=== PATIENT | female | born 1935 | race Caucasian/White ===

== ENCOUNTER → 2016-11-06 | Outpatient (CLI) | payer MEDICARE, BC ==
--- NOTE | 2016-11-06 15:31 | KCIC ---
Examination: Two views of the chest. HISTORY History of bronchitis, cough, chest tightness for 3 days. COMPARISON 08/06/2016. Findings: Left-sided cardiac pacer /AICD again identified. Median sternotomy wires are noted. The cardiomediastinal silhouette grossly appears unchanged. There is no acute infiltrate or visualized pneumothorax identified. Lumbar levoscoliosis. IMPRESSION No acute cardiopulmonary findings. Electronically signed by: Sanchez Estes (Nov 06, 2016 15:29:31)
== END | disposition home or self-care (01) ==
LOC: KCIC 14:39
PROVIDERS: ATTEND Nurse Practitioner Family
DX: J40 Bronchitis, not specified as acute or chronic (principal); R05 Cough; R07.89 Other chest pain
CPT/HCPCS: 71020

== ENCOUNTER → 2017-03-18 | Outpatient (CLI) | payer MEDICARE, BC ==
--- NOTE | 2017-03-18 14:35 | KCIC ---
CHEST PA LATERAL, RIBS RIGHT History: Fall, contusion of right ribs. Fall one week ago. Anterior right rib pain. Comparison: Two-view chest November 06, 2016. Findings: Median sternotomy wires and changes of CABG. There is left chest dual-chamber biventricular ICD. Atherosclerotic and tortuous thoracic and abdominal aorta. Cardiac size upper limits of normal, stable. Pulmonary vasculature is normal. Stable elevation left hemidiaphragm. The lungs are clear. Tiny calcified granuloma right lower lung. No pleural effusion or pneumothorax is seen. Left convexity thoracolumbar rotoscoliosis. Diffuse demineralization. There is no acute displaced right rib fracture. IMPRESSION: 1. No acute cardiopulmonary process. 2. No acute displaced right rib fracture. Electronically signed by: Gamaliel Mckeon MD (03/18/2017 2:32 PM)
== END | disposition home or self-care (01) ==
LOC: KCIC 13:48
PROVIDERS: ATTEND Nurse Practitioner Family
DX: S20.211A Contusion of right front wall of thorax, initial encounter (principal); W19.XXXA Unspecified fall, initial encounter
CPT/HCPCS: 71020; 71100

== ENCOUNTER → 2017-08-02 | Day surgery (SDC) | payer BC, MEDICARE ==
[~2017-08-02] MED LIST: ASPI-482 PO; ATOR20TA PO; CARV25TA PO; CLOP75TA PO; COLE625T12 PO; DICL50TA4 PO; ESOM20CA PO; FENO145T PO; FLUT9.9S NS; FURO40TA4 PO; GABA-586 PO; GLIM4TAB PO; ISOS30TA4 PO; IV RINGERS,LACTATED 1000ML 1,000 ML IV SCH; MONT10TA9 PO; OMEG1CAP2 PO; PROPOFOL 20 ML IV ONE; SITA100T PO
[2017-08-02 07:50] VITALS: BP 128/65
--- NOTE | 2017-08-02 21:47 | CONS ---
DATE OF CONSULTATION: 08/02/2017 REFERRING PHYSICIAN: Beatris Magallon MD REASON FOR CONSULTATION: Rectal bleeding and constipation. HISTORY OF PRESENT ILLNESS: An 81-year-old female with past medical history significant for organic heart disease, hypertension, diabetes, hyperlipidemia, status post stenting, status post IN as well as sleep apnea is seen with persistent rectal bleeding and constipation. It has been present now for approximately six months. Weight and appetite are stable. Last colonoscopy was in 2006 without pathology. With persistent bleeding, the colonoscopy has been recommended last year and she has deferred until now. PAST MEDICAL HISTORY: Organic heart disease, hypertension, hyperlipidemia, status post myocardial infarction, status post stent, sleep apnea, osteoarthrosis, diabetes. MEDICATIONS: Include aspirin, atorvastatin, Coreg, Plavix, Welchol, diclofenac, omeprazole, fenofibrate, furosemide, gabapentin, glimepiride, isosorbide, montelukast, and Januvia. FAMILY HISTORY: Significant for breast cancer with an aunt, CVA with her father, diabetes with two siblings, ovarian cancer with her mother. PAST SURGICAL HISTORY: Significant for pacemaker, bypass, defibrillator, eye surgery. ALLERGIES: CODEINE AND IODINE. SOCIAL HISTORY: She is retired. Does not drink or smoke. REVIEW OF SYSTEMS: Per records. PHYSICAL EXAMINATION: GENERAL: Reveals a well-nourished, well-developed female. VITAL SIGNS: Temperature is 97.8, pulse , respirations 18. HEENT: Normocephalic and atraumatic head. Pupils and extraocular muscles are not tested. Sclerae anicteric. NECK: Supple. LUNGS: Clear. CARDIOVASCULAR: Reveals an S1, S2 without S3, S4 or appreciable murmur. Defibrillator was noted. ABDOMEN: Soft abdomen, normoactive bowel sounds, without appreciable hepatosplenomegaly. EXTREMITIES: Reveals no cyanosis, clubbing or edema. IMPRESSION: Rectal bleeding and constipation. The etiology is to be determined. Differential includes stercoral ulcers, arteriovenous malformations, hemorrhoids, irritable bowel disease, colon polyps, colon cancer; therefore, recommend colonoscopy to further assess. Risks and benefits of procedure including risk of hemorrhage or perforation requiring operation have been discussed. The patient is willing to proceed at this time. ELSA KERR MD DR: JADYN/vikas JOB#: [id number] / [id number]
== END | disposition home or self-care (01) ==
LOC: ENDOS 05:57
PROVIDERS: ATTEND Internal Medicine Gastroenterology
DX: K64.0 First degree hemorrhoids (principal); K57.30 Diverticulosis of large intestine without perforation or abscess without bleeding; E78.00 Pure hypercholesterolemia, unspecified; E11.9 Type 2 diabetes mellitus without complications; Z86.39 Personal history of other endocrine, nutritional and metabolic disease; Z88.6 Allergy status to analgesic agent; Z91.041 Radiographic dye allergy status; Z95.0 Presence of cardiac pacemaker
CPT/HCPCS: 45378; 82962; J2704

== ENCOUNTER → 2018-01-29 | Outpatient (CLI) | payer MEDICARE, BC | END | disposition home or self-care (01) | LOC: RT 18:36 | DX: G47.33 Obstructive sleep apnea (adult) (pediatric) (principal) | CPT/HCPCS: 95811 ==

== ENCOUNTER → 2018-05-13 | Outpatient (CLI) | payer MEDICARE, BC ==
[2017-08-02 07:50] VITALS: BP 128/65
[~2018-05-13] MED LIST changes: -IV RINGERS,LACTATED 1000ML 1,000 ML IV SCH; -PROPOFOL 20 ML IV ONE
[2018-05-13 14:10] LABS: BASE EXCESS ABG 5 mmol/L (-3-3); HCO3 ABG 29 mmol/L (21-28); PCO2 ABG 41 mmHg (35-46); PO2 ABG 77 mmHg (65-108); SAT O2 ABG 96 % (92-99)
[2018-05-13 14:11] LABS: FIO2 ABG 21
== END | disposition home or self-care (01) ==
LOC: LAB 13:40
PROVIDERS: ATTEND Family Medicine
DX: G47.33 Obstructive sleep apnea (adult) (pediatric) (principal); R06.09 Other forms of dyspnea; R06.89 Other abnormalities of breathing; E11.9 Type 2 diabetes mellitus without complications; E78.00 Pure hypercholesterolemia, unspecified; Z95.0 Presence of cardiac pacemaker; Z86.39 Personal history of other endocrine, nutritional and metabolic disease; Z88.6 Allergy status to analgesic agent
CPT/HCPCS: 36600; 82805

== ENCOUNTER → 2018-05-20 | Outpatient (CLI) | payer MEDICARE, BC ==
[2017-08-02 07:50] VITALS: BP 128/65
--- NOTE | 2018-05-20 14:44 | KCIC ---
CHEST PA LATERAL dated 05/20/2018 12:00 AM. Comparison: 03/18/2017 Clinical Indication: Hypercarbia. OBSTRUCTIVE SLEEP APNEA. DYSPNEA ON EXERTION. Findings: PA and lateral views obtained. Heart and mediastinal contours are stable. 3-lead left subclavian pacer/AICD in place, unchanged. Mild elevation of left hemidiaphragm, unchanged. Lungs are clear without focal consolidation. No apparent pleural effusion or pneumothorax. Impression: No acute radiographic abnormality. Stable findings compared to 03/18/2017. Electronically signed by: Edouard Campos MD (05/20/2018 2:40 PM) [facility]
== END | disposition home or self-care (01) ==
LOC: KCIC 14:20
PROVIDERS: ATTEND Family Medicine
DX: G47.33 Obstructive sleep apnea (adult) (pediatric) (principal); E11.9 Type 2 diabetes mellitus without complications; E78.00 Pure hypercholesterolemia, unspecified; R06.89 Other abnormalities of breathing; Z95.0 Presence of cardiac pacemaker; Z86.39 Personal history of other endocrine, nutritional and metabolic disease
CPT/HCPCS: 71046

== ENCOUNTER → 2018-06-09 | Outpatient (CLI) | payer MEDICARE, BC ==
[2017-08-02 07:50] VITALS: BP 128/65
--- NOTE | 2018-06-09 17:06 | RAD ---
FLUOROSCOPIC SNIFF TEST Clinical indications: Shortness of breath. Elevation of the left hemidiaphragm. Total fluoroscopic time: 0.3 minutes. Total fluoroscopic spot images: 116. FINDINGS: Movement of both hemidiaphragms is seen with inspiration and expiration and with sniffing but slightly less on the left side in comparison to the right side. There is mild elevation of left hemidiaphragm. IMPRESSION: Movement of both hemidiaphragms is seen. Electronically signed by: Raimundo Ken MD (06/09/2018 5:02 PM) [facility]
== END | disposition home or self-care (01) ==
LOC: RAD 12:30
PROVIDERS: ATTEND Internal Medicine Pulmonary Disease
DX: J98.6 Disorders of diaphragm (principal); E11.9 Type 2 diabetes mellitus without complications; E78.00 Pure hypercholesterolemia, unspecified; Z88.6 Allergy status to analgesic agent; Z91.041 Radiographic dye allergy status; Z95.0 Presence of cardiac pacemaker; Z86.39 Personal history of other endocrine, nutritional and metabolic disease
CPT/HCPCS: 76000

== ENCOUNTER → 2018-12-05 | Outpatient (CLI) | payer MEDICARE, BC ==
[2017-08-02 07:50] VITALS: BP 128/65
[~2018-12-05] MED LIST changes: -GABA-586 PO; +GABA300C18 PO
--- NOTE | 2018-12-05 15:27 | RAD ---
CT ABD PEL W/ORAL CONTRST ONLY Indication: GEN ABD PAIN MID ABD WITH PALPATION AT DR OFFICE BARIUM ONLY PT ALLERGIC TO IODINE NO PREV Exposure: One or more of the following individualized dose reduction techniques were utilized for this examination: 1. Automated exposure control 2. Adjustment of the mA and/or kV according to patient size 3. Use of iterative reconstruction technique. Comparison: None are available. Technique: No intravenous contrast given. Oral contrast was given. Findings: Evaluation of solid viscera, bowel and vasculature is compromised by the noncontrast technique. Pulmonary nodule in the right lower lobe measures 6 mm, may demonstrate a small central calcification. This is unchanged since prior CT chest image from November 08, 2018. Heart size is mildly enlarged. Liver and spleen unremarkable. Pancreas unremarkable. No evidence of adrenal mass. Kidneys demonstrate no evidence of calculus or hydronephrosis. Distal ureters are difficult to follow but no evidence of dilatation were seen. Gallbladder is not distended. There appear to be some gallstones. Abdominal aorta demonstrates tortuosity and atherosclerotic calcification. There is a small infrarenal abdominal aortic aneurysm, which measures 3.8 cm AP diameter by 3.4 cm wide. Ectasia and tortuosity of the iliac arteries. No significant lymph node enlargement. No significant small bowel distention. No evidence of acute colitis. Mild colonic diverticulosis. The appendix is not clearly seen. No evidence of ascites or pneumoperitoneum. No evidence of pelvic mass. Urinary bladder is not adequately distended for evaluation. This degenerative spondylosis and left convexity lumbar scoliosis. Mild anterior subluxation of L5 on S1 with bilateral L5 spondylolysis. Mild superior endplate compression deformity of T11, indeterminate age but may be chronic. Lumbar stenosis identified, greatest at L3-L4. IMPRESSION: 1. Small infrarenal abdominal aortic aneurysm, 3.8 cm x 3.4 cm transverse dimensions. 2. There appear to be gallstones within a contracted gallbladder. 3. Lumbar spondylosis with stenosis. Spondylolisthesis at L5-S1 with L5 spondylolysis. 4. Mild superior endplate compression fracture of T11, age indeterminate but may be chronic. 5. Stable right lower lobe pulmonary nodule since prior chest CT of 2008. Electronically signed by: Edouard Reyes MD (12/05/2018 3:24 PM) [facility]
== END | disposition home or self-care (01) ==
LOC: CT 12:51
PROVIDERS: ATTEND Family Medicine
DX: I71.4 Abdominal aortic aneurysm, without rupture (principal); R91.1 Solitary pulmonary nodule; M84.48XA Pathological fracture, other site, initial encounter for fracture; M53.2X7 Spinal instabilities, lumbosacral region; M47.816 Spondylosis without myelopathy or radiculopathy, lumbar region; M48.061 Spinal stenosis, lumbar region without neurogenic claudication; M43.17 Spondylolisthesis, lumbosacral region; M41.86 Other forms of scoliosis, lumbar region; M43.8X4 Other specified deforming dorsopathies, thoracic region
CPT/HCPCS: 74176

== ENCOUNTER → 2019-02-02 | Outpatient (CLI) | payer MEDICARE, BC ==
[2017-08-02 07:50] VITALS: BP 128/65
--- NOTE | 2019-02-02 12:57 | KCIC ---
CT chest without contrast dated 02/02/2019. Comparison made to 11/08/2008. TECHNIQUE: Contrast axial imaging the chest performed without the administration of intravenous contrast. One or more of the following individualized dose reduction techniques were utilized for this examination: 1. Automated exposure control 2. Adjustment of the mA and/or kV according to patient size 3. Use of iterative reconstruction technique FINDINGS: Heart size within normal limits. No pericardial effusion. Mild ectasia of the ascending thoracic aorta measuring 3.6 cms transverse. Patient is status post median sternotomy and CABG procedure. No mediastinal, hilar or axillary lymphadenopathy. Thyroid gland unremarkable. Central airways are patent. Some patchy and linear opacity in the lingula and left lower lobe, likely scar or atelectasis. A small partially calcified pulmonary nodule right lower lobe on image 37 measures 5 mm in size, unchanged. Mild emphysema. Tiny noncalcified pulmonary nodule in the left upper lobe on image 10 measures 3 mm, not definitely present on the prior exam. No consolidation or pleural effusion. No pneumothorax. Limited images of upper abdomen unremarkable. Bone windows show no acute findings. Multilevel spondylosis. IMPRESSION: 1. No acute abnormality of chest. 2. Mild emphysema. 3. Tiny noncalcified pulmonary nodule in the left upper lobe, nonspecific. 4. Additional partially calcified nodule in the right lower lobe is stable from prior study. 5. Status post median sternotomy and CABG procedure. There is mild ectasia of the ascending thoracic aorta. Electronically signed by: Edouard Campos MD (02/02/2019 12:54 PM) [facility]
== END | disposition home or self-care (01) ==
LOC: KCIC CT 12:27
PROVIDERS: ATTEND Internal Medicine Pulmonary Disease
DX: J43.9 Emphysema, unspecified (principal); I77.810 Thoracic aortic ectasia; R91.8 Other nonspecific abnormal finding of lung field; Z95.1 Presence of aortocoronary bypass graft
CPT/HCPCS: 71250

== ENCOUNTER → 2019-03-11 | Outpatient (CLI) | payer MEDICARE, BC ==
[2017-08-02 07:50] VITALS: BP 128/65
[~2019-03-11] MED LIST changes: +MONT10TA49 PO; -MONT10TA9 PO
--- NOTE | 2019-03-11 16:59 | KCIC ---
Chest, 2 views, 03/11/2019: HISTORY: Shortness of breath, right clavicular enlargement Comparison is made to a study from 05/20/2018. There has been a previous median sternotomy. A left-sided transvenous pacing device remains in place with 3 leads extending into the heart. The heart is mildly enlarged. There is calcific plaquing and tortuosity of the thoracic aorta. There is an elongated calcific mass extending into the anterior mediastinum just to the left of midline, also evident on the 02/02/2019 CT exam. This is likely related to prior bypass surgery. The pulmonary vascularity is normal. There is mild chronic elevation of the left hemidiaphragm. No acute infiltrate is seen. There is no evidence of pleural fluid. Moderate hypertrophic spurring is present in the spine. IMPRESSION: 1. Cardiomegaly and aortic atherosclerosis. 2. Postsurgical changes as described above. 3. Chronic elevation of the left hemidiaphragm. 4. No acute pulmonary infiltrates. Right clavicle, 2 views, 03/11/2019: No recent fracture or destructive bony lesion is seen. Minimal distal clavicular deformity is probably due to old trauma. IMPRESSION: No acute right clavicular abnormality is detected. Electronically signed by: Carlos Gunter MD (03/11/2019 4:56 PM) [facility]
== END | disposition home or self-care (01) ==
LOC: KCIC 14:17
PROVIDERS: ATTEND Family Medicine
DX: I70.0 Atherosclerosis of aorta (principal); I51.7 Cardiomegaly; M46.04 Spinal enthesopathy, thoracic region; M21.821 Other specified acquired deformities of right upper arm; M89.311 Hypertrophy of bone, right shoulder
CPT/HCPCS: 71046; 73000

== ENCOUNTER 2019-06-08 05:49 | Inpatient (IN) | payer MEDICARE, BC ==
[~2019-06-08] VITALS: Ht 149.9 cm; Wt 66.7 kg
[2019-06-08] VITALS (14 sets, daily range): BP systolic 103–145; BP diastolic 57–75
--- NOTE | 2019-06-08 06:23 | EKG ---
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
[2019-06-08] MEDS ORDERED: MORPHINE SULFATE 2 MG/ML VIAL. IV ONE (06:30)
[2019-06-08] MEDS ORDERED: ONDANSETRON PF 4 MG/2 ML VIAL. IV ONE (06:30)
[2019-06-08] MEDS ORDERED: HEPARIN for IV BOLUS 10,000 UNIT/10 ML VIAL. IV ONE ×2 (06:30→10:15)
[2019-06-08 06:32] LABS: BASO % 1 % (0-3); EOS # 0.3 x10^3/uL (0.0-0.7); EOS % 5 % (0-3); HEMATOCRIT 37.3 % (36.0-47.0); HEMOGLOBIN 12.6 g/dL (12.0-15.5); LYMPH # 1.6 x10^3/uL (1.0-4.8); LYMPH % 24 % (24-48); MEAN CORPUSCULAR HEMOGLOBIN 30 pg (25-35); MEAN CORPUSCULAR HGB CONC 34 g/dL (31-37); MEAN CORPUSCULAR VOLUME 88 fL (79-100); MONO # 0.7 x10^3/uL (0.0-1.1); MONO % 11 % (0-9); NEUT # 3.9 x10^3/uL (1.8-7.7); NEUT % 60 % (31-73); PLATELET COUNT 178 x10^3/uL (140-400); RED BLOOD COUNT 4.25 x10^6/uL (3.50-5.40); RED CELL DISTRIBUTION WIDTH 14.8 % (11.5-14.5); WHITE BLOOD COUNT 6.6 x10^3/uL (4.0-11.0)
[2019-06-08 06:38] LABS: CALCIUM 9.2 mg/dL (8.5-10.1); CREATININE 0.7 mg/dL (0.6-1.0); GFR 79.5
--- NOTE | 2019-06-08 06:44 | PHYS DOC ---
Past Medical History Past Medical History: CAD, Diabetes-Type II, High Cholesterol, Hypertension Additional Past Medical Histor: PPM Past Surgical History: Pacemaker Additional Past Surgical Histo: cabg Alcohol Use: Rarely Drug Use: None Adult General Chief Complaint Chief Complaint: CHEST PAIN HPI HPI Patient is a 83 year old female who presents via EMS with complaining of chest pain. Patient woke up at 0430 this morning because of left-sided and substernal chest tightness with radiation to left shoulder and rated her pain 4-5/10. Patient complaining of shortness of breath and mild dizziness without nausea and focal neurodeficit. EMS gave patient aspirin and nitroglycerin �1 with temporary decrease of pain but the pain increased again to 5/10 at arrival to ER. Patient denies change of pain with position. Patient had history of extensive cardiac problem including stent placement and GABG and pacemaker and states she never had pain like this before. Review of Systems Review of Systems Constitutional: Denies fever or chills [] Eyes: Denies change in visual acuity, redness, or eye pain [] HENT: Denies nasal congestion or sore throat [] Respiratory: Denies cough, reports shortness of breath [] Cardiovascular: No additional information not addressed in HPI [] GI: Denies abdominal pain, nausea, vomiting, bloody stools or diarrhea [] : Denies dysuria or hematuria [] Musculoskeletal: Denies back pain or joint pain [] Integument: Denies rash or skin lesions [] Neurologic: Denies headache, focal weakness or sensory changes [] Endocrine: Denies polyuria or polydipsia [] All other systems were reviewed and found to be within normal limits, except as documented in this note. Current Medications Current Medications Current Medications Medications (Trade) Dose Ordered Sig/[facility] Start Time Stop Time Status Last Admin Dose Admin Heparin Sodium (Porcine) (Heparin Sodium) 4,000 unit 1X ONCE 06/08/19 06:30 06/08/19 06:31 DC 06/08/19 06:30 4,000 UNIT Morphine Sulfate (Morphine Sulfate) 2 mg 1X ONCE 06/08/19 06:30 06/08/19 06:31 DC 06/08/19 06:30 2 MG Ondansetron HCl (Zofran) 4 mg 1X ONCE 06/08/19 06:30 06/08/19 06:31 DC 06/08/19 06:30 4 MG Allergies Allergies Physical Exam Physical Exam Constitutional: Well developed, well nourished, moderate distress, non-toxic appearance. [] HENT: Normocephalic, atraumatic. Eyes: PERRLA, EOMI, conjunctiva normal, no discharge. [] Neck: Normal range of motion, no tenderness, supple, no stridor. [] Cardiovascular:Heart rate regular rhythm, no murmur [] Lungs & Thorax: Bilateral breath sounds clear to auscultation [] Abdomen: Bowel sounds normal, soft, no tenderness, no masses, no pulsatile masses. [] Skin: Warm, dry, no erythema, no rash. [] Back: No tenderness, no CVA tenderness. [] Extremities: No tenderness, no cyanosis, no clubbing, ROM intact, no edema. [] Neurologic: Alert and oriented X 3, no focal deficits noted. [] Psychologic: Affect normal, judgement normal, mood normal. [] Current Patient Data Vital Signs Vital Signs Date Time Temp Pulse Resp B/P (MAP) Pulse Ox O2 Delivery O2 Flow Rate FiO2 06/08/19 06:30 22 95 Room Air 06/08/19 05:51 97.5 76 148/79 (102) 97.5 Lab Values Laboratory Tests Test 06/08/19 06:00 White Blood Count 6.6 x10^3/uL (4.0-11.0) Red Blood Count 4.25 x10^6/uL (3.50-5.40) Hemoglobin 12.6 g/dL (12.0-15.5) Hematocrit 37.3 % (36.0-47.0) Mean Corpuscular Volume 88 fL (79-100) Mean Corpuscular Hemoglobin 30 pg (25-35) Mean Corpuscular Hemoglobin Concent 34 g/dL (31-37) Red Cell Distribution Width 14.8 % (11.5-14.5) H Platelet Count 178 x10^3/uL (140-400) Neutrophils (%) (Auto) 60 % (31-73) Lymphocytes (%) (Auto) 24 % (24-48) Monocytes (%) (Auto) 11 % (0-9) H Eosinophils (%) (Auto) 5 % (0-3) H Basophils (%) (Auto) 1 % (0-3) Neutrophils # (Auto) 3.9 x10^3/uL (1.8-7.7) Lymphocytes # (Auto) 1.6 x10^3/uL (1.0-4.8) Monocytes # (Auto) 0.7 x10^3/uL (0.0-1.1) Eosinophils # (Auto) 0.3 x10^3/uL (0.0-0.7) Basophils # (Auto) 0.0 x10^3/uL (0.0-0.2) Prothrombin Time 14.2 SEC (11.7-14.0) H Prothrombin Time INR 1.1 (0.8-1.1) Sodium Level 143 mmol/L (136-145) Potassium Level 3.0 mmol/L (3.5-5.1) L Chloride Level 104 mmol/L (98-107) Carbon Dioxide Level 31 mmol/L (21-32) Anion Gap 8 (6-14) Blood Urea Nitrogen 17 mg/dL (7-20) Creatinine 0.7 mg/dL (0.6-1.0) Estimated GFR (Cockcroft-Gault) 79.5 BUN/Creatinine Ratio 24 (6-20) H Glucose Level 135 mg/dL (70-99) H Calcium Level 9.2 mg/dL (8.5-10.1) Magnesium Level 1.7 mg/dL (1.8-2.4) L Total Bilirubin 0.4 mg/dL (0.2-1.0) Aspartate Amino Transferase (AST) 23 U/L (15-37) Alanine Aminotransferase (ALT) 18 U/L (14-59) Alkaline Phosphatase 60 U/L (46-116) Creatine Kinase 110 U/L (26-192) Troponin I Quantitative 0.090 ng/mL (0.000-0.055) EH-Bac-X-Type Natriuretic Peptide 589 pg/mL (0-449) H Total Protein 6.4 g/dL (6.4-8.2) Albumin 3.1 g/dL (3.4-5.0) L Albumin/Globulin Ratio 0.9 (1.0-1.7) L Lipase 143 U/L (73-393) Laboratory Tests 06/08/19 06:00 Laboratory Tests 06/08/19 06:00 EKG EKG EKG interpreted by me. EKG at 0 555 showed normal sinus rhythm with multiple artifact, left bundle branch block, no previous EKG available to compare. Radiology/Procedures Radiology/Procedures [][facility] [address] [place] [address] IMAGING REPORT Signed PATIENT: DUANE LENZ ACCOUNT: [id number] : 1935 LOCATION: [facility]TH AGE: 83 SEX: F EXAM STATUS: ADM IN ORD. PHYSICIAN: YESSY CAIN MD REASON: chest pain, nausea PROCEDURE: PORTABLE CHEST 1V PORTABLE CHEST 1V History: Chest pain, nausea Comparison: March 11, 2019 Findings: Single view of the chest is submitted. There again has been median sternotomy. There is again left electronic cardiac device. Mild elevation of the left hemidiaphragm is unchanged. Pericardial cardiac silhouette is stable, borderline enlarged. There is atherosclerotic calcification near the aortic arch. There is no significant dependent pleural fluid, pneumothorax, lobar infiltrate. Impression: 1. There is no radiographic evidence of acute cardiopulmonary disease. Electronically signed by: Deirdre Sands MD (06/08/2019 7:07 AM) [facility] DICTATED and SIGNED BY: DEIRDRE SANDS MD DATE: 06/08/19706 Course & Med Decision Making Course & Med Decision Making Pertinent Labs and Imaging studies reviewed. (See chart for details) Evaluation of patient in ER showed 83-year-old female patient with heart score of 8 with complaining of chest pain since 4:30 AM. Patient had left bundle branch block without having previous EKG to compare. Dr. Montes De Oca on-call panman was consulted at 0615 and recommended to give bolus of heparin and wait for the lab results. Troponin was very mild elevated, patient had pain after treatment with morphine and nitroglycerin. Optical Mechanic was paged again. Patient requiring admission for further evaluation and treatment. Discussed with Dr. Leyva who is in agreement with admission. Discussed findings and plan with patient and family, who acknowledge understanding and agreement. Dragon Disclaimer Dragon Disclaimer This electronic medical record was generated, in whole or in part, using a voice recognition dictation system. Departure Departure Impression: Primary Impression: Acute chest pain Additional Impressions: Hypokalemia Hypomagnesemia History of coronary artery disease Bundle branch block, left Disposition: 09 ADMITTED INPATIENT (at 0712) Admitting Physician: ELIZABETH Condition: IMPROVED Referrals: DORIAN CUI MD (PCP) The HEART Score for CP Pts HEART Score for Chest Pain: HEART Score for Chest Pain Response (Comments) Value History Highly Suspicious 2 ECG Nonspecific Repolarizatio 1 Age > 65 2 Risk Factors >3 Risk Factors or Hx CAD 2 Troponin >1-<3x Normal Limit 1 Total 8 Risk Factors: Risk Factors: DM, Current or recent (<one month) smoker, HTN, HLP, family history of CAD, obesity. Risk Scores: Score 0 - 3: 2.5% MACE over next 6 weeks - Discharge Home Score 4 - 6: 20.3% MACE over next 6 weeks - Admit for Clinical Observation Score 7 - 10: 72.7% MACE over next 6 weeks - Early Invasive Strategies Problem Qualifiers YESSY CAIN MD Jun 08, 2019 06:44
[2019-06-08 06:45] LABS: ALBUMIN 3.1 g/dL (3.4-5.0); ALBUMIN/GLOBULIN RATIO 0.9 (1.0-1.7); MAGNESIUM 1.7 mg/dL (1.8-2.4); TOTAL BILIRUBIN 0.4 mg/dL (0.2-1.0); TOTAL PROTEIN 6.4 g/dL (6.4-8.2)
[2019-06-08 06:47] LABS: PROTHROMBIN TIME PATIENT 14.2 SEC (11.7-14.0)
[2019-06-08] MEDS ORDERED: NITROGLYCERIN SUBLINGUAL 0.4 MG BOTTLE OF 25. SL STA (07:00)
--- NOTE | 2019-06-08 07:10 | RAD ---
PORTABLE CHEST 1V History: Chest pain, nausea Comparison: March 11, 2019 Findings: Single view of the chest is submitted. There again has been median sternotomy. There is again left electronic cardiac device. Mild elevation of the left hemidiaphragm is unchanged. Pericardial cardiac silhouette is stable, borderline enlarged. There is atherosclerotic calcification near the aortic arch. There is no significant dependent pleural fluid, pneumothorax, lobar infiltrate. Impression: 1. There is no radiographic evidence of acute cardiopulmonary disease. Electronically signed by: Yared Sands MD (06/08/2019 7:07 AM) [facility]
[2019-06-08] MEDS ORDERED: ONDANSETRON PF 4 MG/2 ML VIAL. IV PRN (08:00)
--- NOTE | 2019-06-08 08:00 | NUR ---
The patient, DUANE LENZ, 83 y/o, F admitted by ROBERT VILLEDA MD, was given written information regarding hospital policies, unit procedures and contact persons. Valuables were checked, mary Leo at bedside.
[2019-06-08] MEDS: POTASSIUM CHLORIDE 10MEQ 100 ML IV SCH ×2 (08:10→11:55)
[2019-06-08] MEDS ORDERED: MORPHINE SULFATE 2 MG/ML VIAL. IV PRN (08:45)
--- NOTE | 2019-06-08 08:47 | PDOC1 ---
History and Physical Date of Admission Date of Admission DATE: 06/08/19 TIME: 08:42 Identification/Chief Complaint Chief Complaint cp woke her up from sleep Source Source: Caregiver, Chart review, Patient History of Present Illness History of Present Illness 83 female, good IADLS and ADLS for age, lives with dtr who is at bedside, known CAD hx 2 stents and CABg past, cards is from [facility], CP today woke her up, left sided, moved to left arm. Still having CP described as sharp or heavy, maybe some soa but no dipahoresis or presyncopal sxs, Trop mildly elev, CXR normal but new LBBB. Compliant with home asa and plavix and other cardiac meds, NON DM, Advised heparin bolus and NPO by cards for possible LHC< K 3,0. BNP unimpressive, NTG SL and morphine minimal relief, still needing iV pain meds now, FULL CODE Past Medical History Cardiovascular: CAD, HTN, Hyperlipidemia Past Surgical History Past Surgical History: CABG Family History Family History: High Cholestrol, Hypertension Social History Smoke: No ALCOHOL: none Drugs: None Current Problem List Problem List Problems Medical Problems: (1) Acute chest pain Status: Acute (2) Bundle branch block, left Status: Acute (3) History of coronary artery disease Status: Acute (4) Hypokalemia Status: Acute (5) Hypomagnesemia Status: Acute Current Medications Current Medications Current Medications Morphine Sulfate (Morphine Sulfate) 2 mg 1X ONCE IV Last administered on 06/08/19at 06:30; Start 06/08/19 at 06:30; Stop 06/08/19 at 06:31; Status DC Ondansetron HCl (Zofran) 4 mg 1X ONCE IV Last administered on 06/08/19at 06:30; Start 06/08/19 at 06:30; Stop 06/08/19 at 06:31; Status DC Heparin Sodium (Porcine) (Heparin Sodium) 4,000 unit 1X ONCE IV Last administered on 06/08/19at 06:30; Start 06/08/19 at 06:30; Stop 06/08/19 at 06:31; Status DC Nitroglycerin (Nitrostat) 0.4 mg 1X STAT SL Last administered on 06/08/19at 07:12; Start 06/08/19 at 07:00; Stop 06/08/19 at 07:01; Status DC Potassium Chloride/Water 100 ml @ 100 mls/hr Q1H IV Last administered on at 08:10; Start 06/08/19 at 08:00; Stop 06/08/19 at 09:59 Acetaminophen (Tylenol) 500 mg PRN Q6HRS PRN PO MILD PAIN / TEMP; Start 06/08/19 at 08:00 Ondansetron HCl (Zofran) 4 mg PRN Q6HRS PRN IV NAUSEA/VOMITING; Start 06/08/19 at 08:00 Tramadol HCl (Ultram) 50 mg PRN Q6HRS PRN PO PAIN; Start 06/08/19 at 08:00 Fentanyl Citrate (Fentanyl 2ml Vial) 25 mcg PRN Q2HR PRN IV MODERATE PAIN; Start 06/08/19 at 08:00 Aspirin (Ecotrin) 81 mg DAILY PO ; Start 06/08/19 at 09:00 Atorvastatin Calcium (Lipitor) 20 mg QHS PO ; Start 06/08/19 at 21:00 Clopidogrel Bisulfate (Plavix) 75 mg DAILY PO ; Start 06/08/19 at 09:00 Colesevelam HCl (Welchol) 625 mg DAILY PO ; Start 06/08/19 at 09:00 Furosemide (Lasix) 40 mg DAILY PO ; Start 06/08/19 at 09:00 Gabapentin (Neurontin) 300 mg TID PO ; Start 06/08/19 at 09:00 Isosorbide Mononitrate (Imdur) 30 mg DAILY PO ; Start 06/08/19 at 09:00 Montelukast Sodium (Singulair) 10 mg DAILY PO ; Start 06/08/19 at 09:00 Carvedilol (Coreg) 25 mg BIDWMEALS PO ; Start 06/08/19 at 09:00 Diclofenac Sodium (Voltaren) 50 mg BID PO ; Start 06/08/19 at 09:00 Pantoprazole Sodium (Protonix) 40 mg DAILYAC PO ; Start 06/08/19 at 11:30 Fenofibrate (Lofibra) 134 mg DAILY PO ; Start 06/08/19 at 09:00 Fluticasone Propionate (Flonase) 2 spray DAILY NS ; Start 06/08/19 at 09:00 Glimepiride (Amaryl) 4 mg BID PO ; Start 9/16/19 at 09:00 Fish Oil (Fish Oil) 2,000 mg BID PO ; Start 06/08/19 at 09:00 Non-Formulary Medication (Sitagliptin Phosphate (Januvia)) 1 tab DAILY PO ; Start 06/08/19 at 09:00; Status UNV Active Scripts Active Reported Aspir 81 (Aspirin) 81 Mg Tablet.dr 1 Tab PO DAILY Isosorbide Mononitrate Er (Isosorbide Mononitrate) 30 Mg Tab.er.24h 1 Tab PO DAILY Coreg (Carvedilol) 25 Mg Tablet 1 Tab PO BID Lipitor (Atorvastatin Calcium) 20 Mg Tablet 1 Tab PO DAILY Amaryl (Glimepiride) 4 Mg Tablet 1 Tab PO BID Montelukast Sodium Tablet (Montelukast Sodium) 10 Mg Tablet 1 Tab PO DAILY Gabapentin (Gabapentin) 300 Mg Capsule 300 Mg PO TID Lovaza ([place]-3 Acid Ethyl Esters) 1 Gm Capsule 2 Cap PO BID Tricor (Fenofibrate Nanocrystallized) 145 Mg Tablet 1 Tab PO DAILY Januvia (Sitagliptin Phosphate) 100 Mg Tablet 1 Tab PO DAILY Nexium Capsule (Esomeprazole Magnesium) 20 Mg Capsule.dr 1 Cap PO DAILY Flonase Allergy Relief (Fluticasone Propionate) 9.9 Ml [place].susp 2 Sprays NS DAILY Welchol (Colesevelam Hcl) 625 Mg Tablet 625 Mg PO DAILY Diclofenac Sodium 50 Mg Tablet.dr 1 Tab PO BID Furosemide 40 Mg Tablet 1 Tab PO DAILY Clopidogrel (Clopidogrel Bisulfate) 75 Mg Tablet 1 Tab PO DAILY Allergies Allergies: Coded Allergies: codeine (Verified Allergy, Intermediate, 08/02/17) iodine (Verified Allergy, Intermediate, 08/02/17) ROS Review of System as per hpi, rest 14 pt neg Physical Exam General: Alert, Oriented X3, Cooperative, No acute distress HEENT: Atraumatic, PERRLA, EOMI Lungs: Clear to auscultation, Normal air movement Heart: S1S2, RRR, no thrills, no rubs, no gallops Cardiovascular: S1, S2 Breasts: Normal, Rt breast nml w/o mass, Lt breast nml w/o mass, Nipples normal Abdomen: Normal bowel sounds, Soft, No tenderness, No hepatosplenomegaly, No masses Rectal Exam: not examined PELVIC: Nml ext genitalia Extremities: No clubbing, No cyanosis, No edema, Normal pulses, No t enderness/swelling Skin: No rashes, No breakdown, No significant lesion Neuro: Normal gait, Normal speech, Strength at 5/5 X4 ext, Normal tone, Sensation intact, Cranial nerves 3-12 NL, Reflexes 2+ Psych/Mental Status: Mental status NL, Mood NL Vitals Vitals Vital Signs Date Time Temp Pulse Resp B/P (MAP) Pulse Ox O2 Delivery O2 Flow Rate FiO2 06/08/19 07:12 60 127/67 06/08/19 06:30 22 95 Room Air 06/08/19 05:51 97.5 97.5 Labs Labs Laboratory Tests Test 06/08/19 06:00 White Blood Count 6.6 x10^3/uL (4.0-11.0) Red Blood Count 4.25 x10^6/uL (3.50-5.40) Hemoglobin 12.6 g/dL (12.0-15.5) Hematocrit 37.3 % (36.0-47.0) Mean Corpuscular Volume 88 fL (79-100) Mean Corpuscular Hemoglobin 30 pg (25-35) Mean Corpuscular Hemoglobin Concent 34 g/dL (31-37) Red Cell Distribution Width 14.8 % (11.5-14.5) Platelet Count 178 x10^3/uL (140-400) Neutrophils (%) (Auto) 60 % (31-73) Lymphocytes (%) (Auto) 24 % (24-48) Monocytes (%) (Auto) 11 % (0-9) Eosinophils (%) (Auto) 5 % (0-3) Basophils (%) (Auto) 1 % (0-3) Neutrophils # (Auto) 3.9 x10^3/uL (1.8-7.7) Lymphocytes # (Auto) 1.6 x10^3/uL (1.0-4.8) Monocytes # (Auto) 0.7 x10^3/uL (0.0-1.1) Eosinophils # (Auto) 0.3 x10^3/uL (0.0-0.7) Basophils # (Auto) 0.0 x10^3/uL (0.0-0.2) Prothrombin Time 14.2 SEC (11.7-14.0) Prothromb Time International Ratio 1.1 (0.8-1.1) Sodium Level 143 mmol/L (136-145) Potassium Level 3.0 mmol/L (3.5-5.1) Chloride Level 104 mmol/L (98-107) Carbon Dioxide Level 31 mmol/L (21-32) Anion Gap 8 (6-14) Blood Urea Nitrogen 17 mg/dL (7-20) Creatinine 0.7 mg/dL (0.6-1.0) Estimated GFR (Cockcroft-Gault) 79.5 BUN/Creatinine Ratio 24 (6-20) Glucose Level 135 mg/dL (70-99) Calcium Level 9.2 mg/dL (8.5-10.1) Magnesium Level 1.7 mg/dL (1.8-2.4) Total Bilirubin 0.4 mg/dL (0.2-1.0) Aspartate Amino Transf (AST/SGOT) 23 U/L (15-37) Alanine Aminotransferase (ALT/SGPT) 18 U/L (14-59) Alkaline Phosphatase 60 U/L (46-116) Creatine Kinase 110 U/L (26-192) Troponin I Quantitative 0.090 ng/mL (0.000-0.055) EK-Wcz-I-Type Natriuretic Peptide 589 pg/mL (0-449) Total Protein 6.4 g/dL (6.4-8.2) Albumin 3.1 g/dL (3.4-5.0) Albumin/Globulin Ratio 0.9 (1.0-1.7) Lipase 143 U/L (73-393) Laboratory Tests Test 06/08/19 06:00 White Blood Count 6.6 x10^3/uL (4.0-11.0) Red Blood Count 4.25 x10^6/uL (3.50-5.40) Hemoglobin 12.6 g/dL (12.0-15.5) Hematocrit 37.3 % (36.0-47.0) Mean Corpuscular Volume 88 fL (79-100) Mean Corpuscular Hemoglobin 30 pg (25-35) Mean Corpuscular Hemoglobin Concent 34 g/dL (31-37) Red Cell Distribution Width 14.8 % (11.5-14.5) Platelet Count 178 x10^3/uL (140-400) Neutrophils (%) (Auto) 60 % (31-73) Lymphocytes (%) (Auto) 24 % (24-48) Monocytes (%) (Auto) 11 % (0-9) Eosinophils (%) (Auto) 5 % (0-3) Basophils (%) (Auto) 1 % (0-3) Neutrophils # (Auto) 3.9 x10^3/uL (1.8-7.7) Lymphocytes # (Auto) 1.6 x10^3/uL (1.0-4.8) Monocytes # (Auto) 0.7 x10^3/uL (0.0-1.1) Eosinophils # (Auto) 0.3 x10^3/uL (0.0-0.7) Basophils # (Auto) 0.0 x10^3/uL (0.0-0.2) Prothrombin Time 14.2 SEC (11.7-14.0) Prothromb Time International Ratio 1.1 (0.8-1.1) Sodium Level 143 mmol/L (136-145) Potassium Level 3.0 mmol/L (3.5-5.1) Chloride Level 104 mmol/L (98-107) Carbon Dioxide Level 31 mmol/L (21-32) Anion Gap 8 (6-14) Blood Urea Nitrogen 17 mg/dL (7-20) Creatinine 0.7 mg/dL (0.6-1.0) Estimated GFR (Cockcroft-Gault) 79.5 BUN/Creatinine Ratio 24 (6-20) Glucose Level 135 mg/dL (70-99) Calcium Level 9.2 mg/dL (8.5-10.1) Magnesium Level 1.7 mg/dL (1.8-2.4) Total Bilirubin 0.4 mg/dL (0.2-1.0) Aspartate Amino Transf (AST/SGOT) 23 U/L (15-37) Alanine Aminotransferase (ALT/SGPT) 18 U/L (14-59) Alkaline Phosphatase 60 U/L (46-116) Creatine Kinase 110 U/L (26-192) Troponin I Quantitative 0.090 ng/mL (0.000-0.055) NJ-Ayg-U-Type Natriuretic Peptide 589 pg/mL (0-449) Total Protein 6.4 g/dL (6.4-8.2) Albumin 3.1 g/dL (3.4-5.0) Albumin/Globulin Ratio 0.9 (1.0-1.7) Lipase 143 U/L (73-393) VTE Prophylaxis Ordered VTE Prophylaxis Devices: Yes VTE Pharmacological Prophylaxi: Yes Assessment/Plan Assessment/Plan 1. Unstable angina, r.o NSTEMI 2. NEw LBBB 3. Hx CAD, stents, hx CABG 4. Dyslipidemia on statin and fish oil 5. HTN controlled 6. Hypokalemia PLAN: CVC bed, heparin bolus COnt home meds, ii.e. ASA, plavix COnt other home meds Trend trops LHC later, NPO... FULL CODE dw dtr and RN Replace K IV then PO after C ROBERT VILLEDA MD Jun 08, 2019 08:47
[2019-06-08] MEDS ORDERED: IODIXANOL 320 MG/ML 100 ML VIAL. ONE ×2 (08:58→10:04)
[2019-06-08] MEDS ORDERED: LIDOCAINE 1% Multi-Dose 20 ML VIAL. ONE (08:58)
--- NOTE | 2019-06-08 08:58 | PDOC2 ---
CONSULT Date of Consult Date of Consult DATE: 06/08/19 TIME: 08:58 Reason for Consult Reason for Consult: Chest pain Referring Physician Referring Physician: Dr. Leyva Identification/Chief Complaint Chief Complaint Chest pain Source Source: Chart review, Patient History of Present Illness Reason for Visit: 83-year-old female with history of coronary artery disease s/p CABG in 1986 with percutaneous interventions thereafter, most recently in 2017, ischemic cardiomyopathy s/p biventricular ICD implantation usually followed by Dr. Wright from [facility] presented complaining of retrosternal chest pressure associated with left arm pain and t ingling sensation that woke her up from sleep earlier today. She had associated dyspnea but denied any orthopnea/PND, palpitations or syncope. She stated that the pain was different than the pain she had prior to her previous angioplasties. Past Medical History Cardiovascular: CAD, HTN, Hyperlipidemia, Other (ischemic cardio myopathy) Past Surgical History Past Surgical History: CABG, Other (biventricular ICD implantation) Family History Family History: High Cholestrol, Hypertension Social History No ALCOHOL: none Drugs: None Current Problem List Problem List Problems Medical Problems: (1) Acute chest pain Status: Acute (2) Bundle branch block, left Status: Acute (3) History of coronary artery disease Status: Acute (4) Hypokalemia Status: Acute (5) Hypomagnesemia Status: Acute Current Medications Current Medications Current Medications Morphine Sulfate (Morphine Sulfate) 2 mg 1X ONCE IV Last administered on 06/08/19at 06:30; Start 06/08/19 at 06:30; Stop 06/08/19 at 06:31; Status DC Ondansetron HCl (Zofran) 4 mg 1X ONCE IV Last administered on 06/08/19at 06:30; Start 06/08/19 at 06:30; Stop 06/08/19 at 06:31; Status DC Heparin Sodium (Porcine) (Heparin Sodium) 4,000 unit 1X ONCE IV Last administered on 06/08/19at 06:30; Start 06/08/19 at 06:30; Stop 06/08/19 at 06:31; Status DC Nitroglycerin (Nitrostat) 0.4 mg 1X STAT SL Last administered on 06/08/19at 07:12; Start 06/08/19 at 07:00; Stop 06/08/19 at 07:01; Status DC Potassium Chloride/Water 100 ml @ 100 mls/hr Q1H IV Last administered on 06/08/19at 08:10; Start 06/08/19 at 08:00; Stop 06/08/19 at 09:59 Acetaminophen (Tylenol) 500 mg PRN Q6HRS PRN PO MILD PAIN / TEMP; Start 06/08/19 at 08:00 Ondansetron HCl (Zofran) 4 mg PRN Q6HRS PRN IV NAUSEA/VOMITING; Start 06/08/19 at 08:00 Tramadol HCl (Ultram) 50 mg PRN Q6HRS PRN PO PAIN; Start 06/08/19 at 08:00 Fentanyl Citrate (Fentanyl 2ml Vial) 25 mcg PRN Q2HR PRN IV MODERATE PAIN; Start 06/08/19 at 08:00 Aspirin (Ecotrin) 81 mg DAILY PO ; Start 06/08/19 at 09:00 Atorvastatin Calcium (Lipitor) 20 mg QHS PO ; Start 06/08/19 at 21:00 Clopidogrel Bisulfate (Plavix) 75 mg DAILY PO ; Start 06/08/19 at 09:00 Colesevelam HCl (Welchol) 625 mg DAILY PO ; Start 06/08/19 at 09:00 Furosemide (Lasix) 40 mg DAILY PO ; Start 06/08/19 at 09:00 Gabapentin (Neurontin) 300 mg TID PO ; Start 06/08/19 at 09:00 Isosorbide Mononitrate (Imdur) 30 mg DAILY PO ; Start 06/08/19 at 09:00 Montelukast Sodium (Singulair) 10 mg DAILY PO ; Start 06/08/19 at 09:00 Carvedilol (Coreg) 25 mg BIDWMEALS PO ; Start 06/08/19 at 09:00 Diclofenac Sodium (Voltaren) 50 mg BID PO ; Start 06/08/19 at 09:00 Pantoprazole Sodium (Protonix) 40 mg DAILYAC PO ; Start 06/08/19 at 11:30 Fenofibrate (Lofibra) 134 mg DAILY PO ; Start 06/08/19 at 09:00 Fluticasone Propionate (Flonase) 2 spray DAILY NS ; Start 06/08/19 at 09:00 Glimepiride (Amaryl) 4 mg BID PO ; Start 06/08/19 at 09:00 Fish Oil (Fish Oil) 2,000 mg BID PO ; Start 06/08/19 at 09:00 Linagliptin (Tradjenta) 5 mg DAILY PO ; Start 06/08/19 at 09:00 Morphine Sulfate (Morphine Sulfate) 2 mg PRN Q2HR PRN IV MODERATE TO SEVERE PAIN; Start 06/08/19 at 08:45 Potassium Chloride (Klor-Con) 20 meq 1X ONCE PO ; Start 06/08/19 at 11:00; Stop 06/08/19 at 11:01 Active Scripts Active Reported Aspir 81 (Aspirin) 81 Mg Tablet.dr 1 Tab PO DAILY Isosorbide Mononitrate Er (Isosorbide Mononitrate) 30 Mg Tab.er.24h 1 Tab PO DAILY Coreg (Carvedilol) 25 Mg Tablet 1 Tab PO BID Lipitor (Atorvastatin Calcium) 20 Mg Tablet 1 Tab PO DAILY Amaryl (Glimepiride) 4 Mg Tablet 1 Tab PO BID Montelukast Sodium Tablet (Montelukast Sodium) 10 Mg Tablet 1 Tab PO DAILY Gabapentin (Gabapentin) 300 Mg Capsule 300 Mg PO TID Lovaza ([place]-3 Acid Ethyl Esters) 1 Gm Capsule 2 Cap PO BID Tricor (Fenofibrate Nanocrystallized) 145 Mg Tablet 1 Tab PO DAILY Januvia (Sitagliptin Phosphate) 100 Mg Tablet 1 Tab PO DAILY Nexium Capsule (Esomeprazole Magnesium) 20 Mg Capsule.dr 1 Cap PO DAILY Flonase Allergy Relief (Fluticasone Propionate) 9.9 Ml [place].susp 2 Sprays NS DAILY Welchol (Colesevelam Hcl) 625 Mg Tablet 625 Mg PO DAILY Diclofenac Sodium 50 Mg Tablet.dr 1 Tab PO BID Furosemide 40 Mg Tablet 1 Tab PO DAILY Clopidogrel (Clopidogrel Bisulfate) 75 Mg Tablet 1 Tab PO DAILY Allergies Allergies: Coded Allergies: codeine (Verified Allergy, Intermediate, 06/08/19) HALLUCINATIONS, ELLIOTT iodine (Verified Allergy, Intermediate, Rash, 06/08/19) rosuvastatin (Verified Allergy, Intermediate, 06/08/19) KIDNEY PROBLEMS ezetimibe (Verified Adverse Reaction, Intermediate, 06/08/19) ANKLE SWELLING rosiglitazone (Verified Adverse Reaction, Intermediate, Nausea and Vomiting, 06/08/19) ROS PSYCHOLOGICAL ROS: No: Hallucinations Eyes: No Loss of vision HEENT: No: Epistaxis Respiratory: YES: Shortness of breath; No: Hemoptysis Cardiovascular: yes Chest Pain Gastrointestinal: No Vomiting, No Diarrhea Neurological: No Seizures Skin: No Rash Physical Exam General: Alert, Oriented X3 HEENT: Atraumatic, PERRLA Lungs: Clear to auscultation Heart: Regular rate Abdomen: Soft Extremities: No edema Psych/Mental Status: Mood NL Vitals VITALS Vital Signs Date Time Temp Pulse Resp B/P (MAP) Pulse Ox O2 Delivery O2 Flow Rate FiO2 06/08/19 07:12 60 127/67 06/08/19 06:30 22 95 Room Air 06/08/19 05:51 97.5 97.5 Labs Labs Laboratory Tests Test 06/08/19 06:00 White Blood Count 6.6 x10^3/uL (4.0-11.0) Red Blood Count 4.25 x10^6/uL (3.50-5.40) Hemoglobin 12.6 g/dL (12.0-15.5) Hematocrit 37.3 % (36.0-47.0) Mean Corpuscular Volume 88 fL (79-100) Mean Corpuscular Hemoglobin 30 pg (25-35) Mean Corpuscular Hemoglobin Concent 34 g/dL (31-37) Red Cell Distribution Width 14.8 % (11.5-14.5) Platelet Count 178 x10^3/uL (140-400) Neutrophils (%) (Auto) 60 % (31-73) Lymphocytes (%) (Auto) 24 % (24-48) Monocytes (%) (Auto) 11 % (0-9) Eosinophils (%) (Auto) 5 % (0-3) Basophils (%) (Auto) 1 % (0-3) Neutrophils # (Auto) 3.9 x10^3/uL (1.8-7.7) Lymphocytes # (Auto) 1.6 x10^3/uL (1.0-4.8) Monocytes # (Auto) 0.7 x10^3/uL (0.0-1.1) Eosinophils # (Auto) 0.3 x10^3/uL (0.0-0.7) Basophils # (Auto) 0.0 x10^3/uL (0.0-0.2) Prothrombin Time 14.2 SEC (11.7-14.0) Prothromb Time International Ratio 1.1 (0.8-1.1) Sodium Level 143 mmol/L (136-145) Potassium Level 3.0 mmol/L (3.5-5.1) Chloride Level 104 mmol/L (98-107) Carbon Dioxide Level 31 mmol/L (21-32) Anion Gap 8 (6-14) Blood Urea Nitrogen 17 mg/dL (7-20) Creatinine 0.7 mg/dL (0.6-1.0) Estimated GFR (Cockcroft-Gault) 79.5 BUN/Creatinine Ratio 24 (6-20) Glucose Level 135 mg/dL (70-99) Calcium Level 9.2 mg/dL (8.5-10.1) Magnesium Level 1.7 mg/dL (1.8-2.4) Total Bilirubin 0.4 mg/dL (0.2-1.0) Aspartate Amino Transf (AST/SGOT) 23 U/L (15-37) Alanine Aminotransferase (ALT/SGPT) 18 U/L (14-59) Alkaline Phosphatase 60 U/L (46-116) Creatine Kinase 110 U/L (26-192) Troponin I Quantitative 0.090 ng/mL (0.000-0.055) DT-Fgz-L-Type Natriuretic Peptide 589 pg/mL (0-449) Total Protein 6.4 g/dL (6.4-8.2) Albumin 3.1 g/dL (3.4-5.0) Albumin/Globulin Ratio 0.9 (1.0-1.7) Lipase 143 U/L (73-393) Laboratory Tests Test 06/08/19 06:00 White Blood Count 6.6 x10^3/uL (4.0-11.0) Red Blood Count 4.25 x10^6/uL (3.50-5.40) Hemoglobin 12.6 g/dL (12.0-15.5) Hematocrit 37.3 % (36.0-47.0) Mean Corpuscular Volume 88 fL (79-100) Mean Corpuscular Hemoglobin 30 pg (25-35) Mean Corpuscular Hemoglobin Concent 34 g/dL (31-37) Red Cell Distribution Width 14.8 % (11.5-14.5) Platelet Count 178 x10^3/uL (140-400) Neutrophils (%) (Auto) 60 % (31-73) Lymphocytes (%) (Auto) 24 % (24-48) Monocytes (%) (Auto) 11 % (0-9) Eosinophils (%) (Auto) 5 % (0-3) Basophils (%) (Auto) 1 % (0-3) Neutrophils # (Auto) 3.9 x10^3/uL (1.8-7.7) Lymphocytes # (Auto) 1.6 x10^3/uL (1.0-4.8) Monocytes # (Auto) 0.7 x10^3/uL (0.0-1.1) Eosinophils # (Auto) 0.3 x10^3/uL (0.0-0.7) Basophils # (Auto) 0.0 x10^3/uL (0.0-0.2) Prothrombin Time 14.2 SEC (11.7-14.0) Prothromb Time International Ratio 1.1 (0.8-1.1) Sodium Level 143 mmol/L (136-145) Potassium Level 3.0 mmol/L (3.5-5.1) Chloride Level 104 mmol/L (98-107) Carbon Dioxide Level 31 mmol/L (21-32) Anion Gap 8 (6-14) Blood Urea Nitrogen 17 mg/dL (7-20) Creatinine 0.7 mg/dL (0.6-1.0) Estimated GFR (Cockcroft-Gault) 79.5 BUN/Creatinine Ratio 24 (6-20) Glucose Level 135 mg/dL (70-99) Calcium Level 9.2 mg/dL (8.5-10.1) Magnesium Level 1.7 mg/dL (1.8-2.4) Total Bilirubin 0.4 mg/dL (0.2-1.0) Aspartate Amino Transf (AST/SGOT) 23 U/L (15-37) Alanine Aminotransferase (ALT/SGPT) 18 U/L (14-59) Alkaline Phosphatase 60 U/L (46-116) Creatine Kinase 110 U/L (26-192) Troponin I Quantitative 0.090 ng/mL (0.000-0.055) YC-Svy-T-Type Natriuretic Peptide 589 pg/mL (0-449) Total Protein 6.4 g/dL (6.4-8.2) Albumin 3.1 g/dL (3.4-5.0) Albumin/Globulin Ratio 0.9 (1.0-1.7) Lipase 143 U/L (73-393) Assessment/Plan Assessment/Plan 1. CAD s/p CABG with percutaneous interventions thereafter presenting with chest pain and slightly elevated troponin level consistent with non-STEMI. EKG showed paced rhythm. Patient has ongoing chest pain. She already received aspirin and heparin. Continue current medications and proceed with cardiac catheterization and possible angioplasty. Risks and benefits were explained and she is agreeable. 2. Chronic systolic heart failure, ischemic cardiomyopathy s/p biventricular ICD implantation. Clinically well compensated. 3. Hypertension: Controlled 4. Hyperlipidemia: Continue statins and fibrates 5. Diabetes mellitus type 2: Treat per IM Thank you for your consultation ESDRAS HUGGINS MD Jun 08, 2019 08:58
--- NOTE | 2019-06-08 08:59 | PDOC ---
MODERATE SEDATION ASSESSMENT RISKS/ALTERNATIVES Risks/Alternatives Risks and alternatives of this type of sedation and procedure discussed with: RISK/ALTERNATIVES: Patient H & P ON CHART H & P H & P on chart and reviewed for co-morbid conditions and appropriate labs. H&P ON CHART: Yes STATUS PREG STATUS ASSESSED: N/A MEDS/ALLERGIES REVIEWED Meds/Allergies Reviewed Medications and Allergies including time and route of recently administered narcotics and sedatives. MEDS/ALLERGIES REVIEWED: Yes ASA RATING ASA RATING: III AIRWAY ASSESSMENT Airway Assessment Airway patency, oral function limitations, presence of caps, crowns, dentures, partials, and ability to extend neck assessed. AIRWAY ASSESSMENT: Yes MALLAMPATI SCORE MALLAMPATI SCORE: II PRE-SEDATION ASSESSMENT PRE-SEDATION ASSESSMENT: Yes ESDRAS HUGGINS MD Jun 08, 2019 08:59
[2019-06-08] MEDS: COLESEVELAM HCL 625 MG TABLET PO SCH (09:00)
[2019-06-08] MEDS: ASPIRIN ENTERIC COATED 81 MG TABLET.DR. PO SCH (09:00)
[2019-06-08] MEDS: FENOFIBRATE,MICRONIZED 134 MG CAPSULE PO SCH (09:00)
[2019-06-08] MEDS ORDERED: MONTELUKAST SODIUM 10 MG TABLET. PO SCH ×2 (09:00→21:00)
[2019-06-08] MEDS ORDERED: FLUTICASONE 50MCG/NASAL SPRAY 16GM BOTTLE. NS SCH (09:00)
[2019-06-08] MEDS: DICLOFENAC SODIUM 25 MG TABLET.DR PO SCH ×2 (09:00→21:00)
[2019-06-08] MEDS ORDERED: methylPREDNISolone SOD SUCC PF 125 MG/2 ML VIAL. ONE (09:02)
[2019-06-08] MEDS ORDERED: fentaNYL PF VIAL 100 MCG/2 ML VIAL ONE (09:02)
[2019-06-08] MEDS ORDERED: FAMOTIDINE 20 MG/2 ML VIAL ONE (09:03)
[2019-06-08] MEDS ORDERED: MIDAZOLAM HCL/PF 2 MG/2 ML VIAL. ONE (09:03)
[2019-06-08] MEDS ORDERED: diphenhydrAMINE 50 MG/ML VIAL ONE (09:03)
[2019-06-08] MEDS: fentaNYL PF VIAL 100 MCG/2 ML VIAL IV PRN ×2 (09:07→10:54)
[2019-06-08] MEDS ORDERED: IODIXANOL 320 MG/ML 100 ML VIAL. IART ONE (09:15)
[2019-06-08] MEDS ORDERED: methylPREDNISolone SOD SUCC PF 125 MG/2 ML VIAL. IV ONE (09:15)
[2019-06-08] MEDS ORDERED: fentaNYL PF VIAL 100 MCG/2 ML VIAL IV ONE (09:15)
[2019-06-08] MEDS ORDERED: FAMOTIDINE 20 MG/2 ML VIAL IVP ONE (09:15)
[2019-06-08] MEDS ORDERED: MIDAZOLAM HCL/PF 2 MG/2 ML VIAL. IV ONE (09:15)
[2019-06-08] MEDS ORDERED: diphenhydrAMINE 50 MG/ML VIAL IVP ONE (09:15)
[2019-06-08] MEDS ORDERED: LIDOCAINE 1% Multi-Dose 20 ML VIAL. INJ ONE (09:15)
[2019-06-08] MEDS ORDERED: HEPARIN for IV BOLUS 10,000 UNIT/10 ML VIAL. ONE (09:48)
[2019-06-08] MEDS ORDERED: ADENOSINE 90 MG/30 ML VIAL. IV ONE (09:51)
[2019-06-08] MEDS ORDERED: ADENOSINE 90 MG in IV NORMAL SALINE 50ML 90 ML IV ONE (10:15)
[2019-06-08] MEDS ORDERED: IV 1/2 NORMAL SALINE 1,000 ML IV SCH (10:59)
[2019-06-08] MEDS ORDERED: POTASSIUM CHLORIDE 20 MEQ TABLET.ER. PO ONE (11:00)
[2019-06-08] MEDS ORDERED: NITROGLYCERIN SUBLINGUAL 0.4 MG BOTTLE OF 25. SL PRN (11:00)
[2019-06-08] MEDS ORDERED: FURO40TA4 PO (12:21)
[2019-06-08] MEDS ORDERED: GABA300C18 PO (12:21)
[2019-06-08] MEDS ORDERED: CETI10TA22 PO (12:21)
[2019-06-08] MEDS: FUROSEMIDE 40 MG TABLET. PO SCH (12:42)
[2019-06-08] MEDS: ACETAMINOPHEN 500 MG TABLET PO PRN ×2 (12:43→21:35)
[2019-06-08] MEDS: OMEGA-3 FATTY ACIDS/FISH OIL 1,000 MG CAPSULE. PO SCH ×2 (12:44→21:34)
[2019-06-08] MEDS: CLOPIDOGREL BISULFATE 75 MG TABLET PO SCH (12:44)
[2019-06-08] MEDS: GLIMEPIRIDE 2 MG TABLET. PO SCH ×2 (12:44→21:35)
[2019-06-08] MEDS: GABAPENTIN 300 MG CAPSULE. PO SCH ×3 (12:44→21:34)
[2019-06-08] MEDS: traMADol 50 MG TABLET PO PRN ×2 (12:45→21:35)
[2019-06-08] MEDS: CARVEDILOL 12.5 MG TABLET. PO SCH ×2 (12:45→17:36)
[2019-06-08] MEDS: ISOSORBIDE MONONITRATE ER 30 MG TAB.ER.24H PO SCH (12:46)
[2019-06-08] MEDS: LINAGLIPTIN 5 MG TABLET PO SCH (12:47)
[2019-06-08] MEDS: FLUTICASONE 50MCG/NASAL SPRAY 16GM BOTTLE. NS SCH (12:47)
[2019-06-08] MEDS: PANTOPRAZOLE 40 MG TABLET.DR. PO SCH (12:52)
--- NOTE | 2019-06-08 13:10 | NUR ---
RN NOTE patient home medications were updated and patient refused medications that have been discontinued
--- NOTE | 2019-06-08 14:47 | NUR ---
SS following for discharge planning. SS reviewed pt chart. Pt is from home with daughter and is currently requiring oxygen. No discharge needs noted at this time. SS will continue to follow for discharge planning.
[2019-06-08] MEDS ORDERED: traZODone 50 MG TABLET. PO PRN (19:15)
[2019-06-08] MEDS ORDERED: ATORVASTATIN CALCIUM 20 MG TABLET PO SCH (21:00)
[2019-06-09 03:06] VITALS: BP 104/54
[2019-06-09 04:45] LABS: BASO % 0 % (0-3); EOS % 0 % (0-3); HEMATOCRIT 35.3 % (36.0-47.0); HEMOGLOBIN 11.9 g/dL (12.0-15.5); LYMPH % 9 % (24-48); MEAN CORPUSCULAR HEMOGLOBIN 29 pg (25-35); MEAN CORPUSCULAR HGB CONC 34 g/dL (31-37); MEAN CORPUSCULAR VOLUME 87 fL (79-100); MONO # 0.8 x10^3/uL (0.0-1.1); MONO % 7 % (0-9); NEUT # 9.4 x10^3/uL (1.8-7.7); NEUT % 83 % (31-73); PLATELET COUNT 195 x10^3/uL (140-400); RED BLOOD COUNT 4.07 x10^6/uL (3.50-5.40); RED CELL DISTRIBUTION WIDTH 14.7 % (11.5-14.5); WHITE BLOOD COUNT 11.3 x10^3/uL (4.0-11.0)
[2019-06-09 04:53] LABS: CALCIUM 9.2 mg/dL (8.5-10.1); CREATININE 0.9 mg/dL (0.6-1.0); GFR 59.5; POTASSIUM 4.5 mmol/L (3.5-5.1)
[2019-06-09 07:00] VITALS: BP 100/58
[2019-06-09] MEDS: PANTOPRAZOLE 40 MG TABLET.DR. PO SCH (07:55)
[2019-06-09] MEDS: COLESEVELAM HCL 625 MG TABLET PO SCH (09:00)
[2019-06-09] MEDS: FENOFIBRATE,MICRONIZED 134 MG CAPSULE PO SCH (09:00)
[2019-06-09] MEDS: DICLOFENAC SODIUM 25 MG TABLET.DR PO SCH (09:00)
[2019-06-09] MEDS: GLIMEPIRIDE 2 MG TABLET. PO SCH (09:06)
[2019-06-09] MEDS: CLOPIDOGREL BISULFATE 75 MG TABLET PO SCH (09:06)
[2019-06-09] MEDS: GABAPENTIN 300 MG CAPSULE. PO SCH ×2 (09:07→13:32)
[2019-06-09] MEDS: FUROSEMIDE 40 MG TABLET. PO SCH (09:07)
[2019-06-09] MEDS: CARVEDILOL 12.5 MG TABLET. PO SCH (09:07)
[2019-06-09] MEDS: ISOSORBIDE MONONITRATE ER 30 MG TAB.ER.24H PO SCH (09:07)
[2019-06-09] MEDS: LINAGLIPTIN 5 MG TABLET PO SCH (09:07)
[2019-06-09] MEDS: ASPIRIN ENTERIC COATED 81 MG TABLET.DR. PO SCH (09:07)
[2019-06-09] MEDS: FLUTICASONE 50MCG/NASAL SPRAY 16GM BOTTLE. NS SCH (09:08)
[2019-06-09] MEDS: OMEGA-3 FATTY ACIDS/FISH OIL 1,000 MG CAPSULE. PO SCH (09:08)
--- NOTE | 2019-06-09 09:59 | CARD ---
MR#: [id number] Date of Study: 06/09/2019 Ordering Physician: ESDRAS HUGGINS, Referring Physician: ESDRAS HUGGINS Tech: Maritza Ferrer RDCS APPROVED REPORT EXAM: Two-dimensional and M-mode echocardiogram with Doppler and color Doppler. Other Information Quality : AverageHR: 60bpm Rhythm : Pacemaker INDICATION Non STEMI 2D DIMENSIONS RVDd3.0 (2.9-3.5cm)Left Atrium(2D)3.9 (1.6-4.0cm) IVSd1.2 (0.7-1.1cm)Aortic Root(2D)3.2 (2.0-3.7cm) LVDd5.0 (3.9-5.9cm)LVOT Diameter1.9 (1.8-2.4cm) PWd1.1 (0.7-1.1cm)LVDs4.2 (2.5-4.0cm) FS (%) 16.2 %SV39.9 ml LVEF(%)35.0 (>50%) M-Mode DIMENSIONS Left Atrium(MM)4.00 (2.5-4.0cm) Aortic Valve AoV Peak Kyree.134.5cm/sAoV VTI25.1cm AO Peak GR.7.2mmHgLVOT Peak Kyree.70.7cm/s AO Mean GR.4mmHgAVA (VMAX)1.44cm2 JEROD (VTI)1.74sc9XD P 1/2 Otue180tz Mitral Valve MV E Dplqzhbo367.8cm/sMV E Peak Gr.102mmHg MV DECEL [id number] A Xyyolglv01.8cm/s MV E Mean Gr.68mmHgE/A Ratio1.2 Pulmonary Valve PV Peak Hnyhrhnz53.6cm/s Tricuspid Valve TR P. Vwyqgass612yw/sRAP NJYKHBAT9cmKj TR Peak Gr.20qwTcBTLI17eoUm Pulmonary Vein S1 Mkuyamzy73.9cm/sD2 Wahrwhmd59.1cm/s LEFT VENTRICLE The left ventricle is normal size. There is mild concentric left ventricular hypertrophy. The systoli c function is mildly decreased. LVEF 45% There is mild global hypokinesis. Transmitral Doppler flow p attern is Grade I-abnormal relaxation pattern. RIGHT VENTRICLE The right ventricle is normal size. There is normal right ventricular wall thickness. The right ventr icular systolic function is normal. Pacer lead noted in RV/RA. ATRIA The left atrium is borderline dilated. The right atrium size is normal. The interatrial septum is int act with no evidence for an atrial septal defect or patent foramen ovale as noted on 2-D or Doppler i maging. AORTIC VALVE The aortic valve is trileaflet. The aortic valve is mildly calcified. Doppler and Color Flow revealed mild aortic regurgitation. There is no significant aortic valvular stenosis. There is no aortic valv ular vegetation. MITRAL VALVE The mitral valve is mildly thickened but opens well. There is no evidence of mitral valve prolapse. T here is no mitral valve stenosis. Doppler and Color-flow revealed moderate mitral regurgitation. TRICUSPID VALVE The tricuspid valve is normal in structure and function. Doppler and Color Flow revealed mild tricusp id regurgitation. There is moderate pulmonary hypertension. The PA pressure was estimated at 53 mmHg. There is no tricuspid valve prolapse or vegetation. There is no tricuspid valve stenosis. PULMONIC VALVE The pulmonic valve is not well visualized. GREAT VESSELS The aortic root is normal in size. The ascending aorta is normal in size. The IVC is normal in size a nd collapses >50% with inspiration. PERICARDIAL EFFUSION There is no evidence of significant pericardial effusion. Critical Notification Critical Value: No <Conclusion> The systolic function is mildly decreased. LVEF 45% There is mild global hypokinesis. Pacer lead noted in RV/RA. Doppler and Color-flow revealed moderate mitral regurgitation. Doppler and Color Flow revealed mild tricuspid regurgitation. There is moderate pulmonary hypertensio n. The PA pressure was estimated at 53 mmHg. Signed by : Abdelrahman Montes De Oca, Electronically Approved : 06/09/2019 09:58:39
--- NOTE | 2019-06-09 10:11 | CARD ---
MR#: [id number] Date of Study: 06/08/2019 Ordering Physician: ESDRAS HUGGINS, Referring Physician: ESDRAS HUGGINS Tech: RT Cristopher (R) APPROVED REPORT Technologist: RT Cristopher (R) Nurse: Kelly Parson RN Procedure(s) performed: 1. Left heart catheterization, selective coronary angiography, selective ang iography of the bypass grafts and left ventriculography 2. Fractional flow reserve measurement of ramus intermedius artery stenosis Fluoro time: 6.9 min Dose: 45 Gycm2 Contrast: 150cc Sedation: 60 min INDICATION The indication(s) include : non-STEMI . [facility] Clinical Frailty Scale [facility] Clinical Frailty Scale: Moderately Frail Heart Failure Heart Failure: No PROCEDURE NARRATIVE After explaining the risks, benefits and alternative options, informed consent was obtained from ayo ent. Patient was brought to the cardiac Electrical Engineering Technologist and her right groin was prepped and draped in the us ual fashion. 20 mL of 2% lidocaine was infiltrated into the skin and subcutaneous tissues for local a nesthesia. Arterial access was obtained in the right common femoral artery and a 6 Afghan sheath was inserted. 6 Afghan JL4 and 6 Afghan JR4 catheters placed to perform selective angiography of the left and right coronary arteries. The 6 Afghan JR4 catheter was then used to perform selective angiograph y of the saphenous vein graft to the right coronary artery and a saphenous vein graft to the obtuse m arginal branch. The left internal mammary artery was not used for her bypass surgery based on previou s angiography and hence was not engaged. 6 Afghan pigtail catheter was used to perform left ventricul ography. Since she was found to have angiographically suspicious lesion involving the ostium of the ramus inte rmedius artery, a decision was made to perform physiologic assessment using fractional flow reserve ( FFR) measurement. The left main coronary artery was engaged with a 6 Afghan XB 3.5 guide catheter and the stenosis in the ramus intermedius artery was crossed with a [employer] PressureWire. After administering intravenous adenosine infusion per protocol FFR measurement was made that was insignifi cant at 0.99. Hence no interventions were performed. Patient tolerated the procedure well. Hemostasis was achieved using Angio-Seal. There were no immediate complications. FINDINGS 1. Hemodynamics: Left ventricle end diastolic pressure 20 mmHg. No pullback gradient across the aort ic valve. 2. 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 2+ mitral regurgitation seen. 3. Coronary and bypass graft angiography: a. The left main coronary artery arose from the left sinus of Valsalva, gave rise to the left anteri or descending, ramus intermedius and left circumflex arteries and did not show any significant stenos is. b. The left anterior descending artery showed 30% stenosis in the midsegment. The diagonal branch wh ich is a small-caliber vessel showed 40% stenosis in the proximal segment. c. The left circumflex artery showed 100% chronic total occlusion in the proximal to midsegment. The re is faint reconstitution of the obtuse marginal branch from left to left collaterals. d. The ramus intermedius artery showed 30-40% stenosis in the ostial segment that was physiologicall y insignificant based on FFR measurement of 0.99. e. The right coronary artery showed 100% chronic total occlusion in the proximal segment. There is d istal reconstitution from right to right collaterals. f. The saphenous vein graft to the right coronary artery was 100% occluded proximally. g. The saphenous vein graft to the obtuse marginal branch showed 100% chronic total occlusion in the proximal segment. Conclusion 1. Coronary artery disease s/p CABG with 100% chronic total occlusions of the saphenous vein graft t o the right coronary artery and saphenous vein graft to the obtuse marginal branch. The left internal mammary artery is not grafted. The [place] left anterior descending and ramus intermedius arteries di d not show any significant stenoses. There is faint reconstitution of distal RCA and OM/LCx from mi aterals. 2. 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 Recommendations Medical Therapy Signed by : Esdras Huggins, Electronically Approved : 06/09/2019 10:11:27
[2019-06-09 11:00] VITALS: BP 95/66
--- NOTE | 2019-06-09 11:25 | PDOC ---
[facility] PROGRESS NOTE Chief Complaint Chief Complaint chest pain History of Present Illness History of Present Illness 06/09/19 Pt was seen and examined Feeling better and ready to go home Sitting up watching TV Vitals/I&O Vitals/I&O: Vital Signs Date Time Temp Pulse Resp B/P (MAP) Pulse Ox O2 Delivery O2 Flow Rate FiO2 06/09/19 11:00 97.8 68 18 95/66 (76) 97 Nasal Cannula 2.0 97.8 I & O 06/08/19 06/08/19 06/09/19 14:59 22:59 06:59 Intake Total 318 ml 1548 ml 1100 ml Balance 318 ml 1548 ml 1100 ml Physical Exam General: Alert, Oriented X3 Heart: Regular rate Abdomen: Soft Extremities: No edema Skin: No rashes, No breakdown, No significant lesion Labs Labs: Laboratory Tests Test 06/08/19 13:06 06/08/19 17:15 06/09/19 04:10 Troponin I Quantitative 5.895 ng/mL (0.000-0.055) 12.396 ng/mL (0.000-0.055) White Blood Count 11.3 x10^3/uL (4.0-11.0) Red Blood Count 4.07 x10^6/uL (3.50-5.40) Hemoglobin 11.9 g/dL (12.0-15.5) Hematocrit 35.3 % (36.0-47.0) Mean Corpuscular Volume 87 fL (79-100) Mean Corpuscular Hemoglobin 29 pg (25-35) Mean Corpuscular Hemoglobin Concent 34 g/dL (31-37) Red Cell Distribution Width 14.7 % (11.5-14.5) Platelet Count 195 x10^3/uL (140-400) Neutrophils (%) (Auto) 83 % (31-73) Lymphocytes (%) (Auto) 9 % (24-48) Monocytes (%) (Auto) 7 % (0-9) Eosinophils (%) (Auto) 0 % (0-3) Basophils (%) (Auto) 0 % (0-3) Neutrophils # (Auto) 9.4 x10^3/uL (1.8-7.7) Lymphocytes # (Auto) 1.0 x10^3/uL (1.0-4.8) Monocytes # (Auto) 0.8 x10^3/uL (0.0-1.1) Eosinophils # (Auto) 0.0 x10^3/uL (0.0-0.7) Basophils # (Auto) 0.0 x10^3/uL (0.0-0.2) Sodium Level 139 mmol/L (136-145) Potassium Level 4.5 mmol/L (3.5-5.1) Chloride Level 104 mmol/L (98-107) Carbon Dioxide Level 31 mmol/L (21-32) Anion Gap 4 (6-14) Blood Urea Nitrogen 21 mg/dL (7-20) Creatinine 0.9 mg/dL (0.6-1.0) Estimated GFR (Cockcroft-Gault) 59.5 Glucose Level 173 mg/dL (70-99) Calcium Level 9.2 mg/dL (8.5-10.1) Review of Systems Review of Systems: Denies pain Denies weakness Assessment and Plan Assessmemt and Plan Problems Medical Problems: (1) Acute chest pain Status: Acute (2) Bundle branch block, left Status: Acute (3) Chronic systolic (congestive) heart failure Status: Chronic (4) DM2 (diabetes mellitus, type 2) Status: Chronic (5) History of coronary artery disease Status: Acute (6) HLD (hyperlipidemia) Status: Chronic (7) Hypertension Status: Chronic (8) Hypokalemia Status: Acute (9) Hypomagnesemia Status: Acute (10) Ischemic cardiomyopathy Status: Chronic (11) NSTEMI (non-ST elevated myocardial infarction) Status: Acute Assessment Acute chest pain CHF Reflux Plan Discharge okay with cardiology Protonix 40mg POQ DVT prophylaxis Home meds Full code Comment Review of Relevant I have reviewed the following items dave (where applicable) has been applied. Medications: Current Medications Medications (Trade) Dose Ordered Sig/Evgeny Route PRN Reason Start Time Stop Time Status Last Admin Dose Admin Atorvastatin Calcium (Lipitor) 20 mg QHS PO 06/08/19 21:00 06/08/19 21:38 Pantoprazole Sodium (Protonix) 40 mg DAILYAC PO 06/08/19 11:30 06/09/19 07:55 Montelukast Sodium (Singulair) 10 mg HS PO 06/08/19 21:00 06/08/19 21:38 Trazodone HCl (Desyrel) 50 mg PRN QHS PRN PO INSOMNIA 06/08/19 19:15 06/08/19 21:38 AURELIA HICKEY III DO Jun 09, 2019 11:24
--- NOTE | 2019-06-09 11:53 | NUR ---
SS following up with discharge planning. PT/OT recommended home with home healthcare. Nurse navigator to meet with pt to discuss home healthcare and home health options. SS will continue to follow for discharge planning.
[2019-06-09] MEDS ORDERED: LISI2.5T PO (12:09)
[2019-06-09] MEDS ORDERED: ASPI-612 PO (12:09)
--- NOTE | 2019-06-09 12:36 | PDOC ---
LOREN POE JUMP IRON MACHINE PRESSER 06/09/19 1236: CARDIO Progress Notes Date and Time Date of Service 06/09/2019 Time of Evaluation 1220 Subjective Subjective: No Chest Pain, No shortness of breath, No Palpitations Vitals Vitals Vital Signs Date Time Temp Pulse Resp B/P (MAP) Pulse Ox O2 Delivery O2 Flow Rate FiO2 06/09/19 11:00 97.8 68 18 95/66 (76) 97 Nasal Cannula 2.0 97.8 Weight Weight [ ] Input and Output Intake and Output Intake and Output 06/09/19 06:59 Intake Total 2966 ml Balance 2966 ml Intake Oral 1816 ml IV Total 1150 ml # Voids 6 Laboratory Labs Laboratory Tests Test 06/08/19 13:06 06/08/19 17:15 06/09/19 04:10 Troponin I Quantitative 5.895 ng/mL (0.000-0.055) 12.396 ng/mL (0.000-0.055) White Blood Count 11.3 x10^3/uL (4.0-11.0) Red Blood Count 4.07 x10^6/uL (3.50-5.40) Hemoglobin 11.9 g/dL (12.0-15.5) Hematocrit 35.3 % (36.0-47.0) Mean Corpuscular Volume 87 fL (79-100) Mean Corpuscular Hemoglobin 29 pg (25-35) Mean Corpuscular Hemoglobin Concent 34 g/dL (31-37) Red Cell Distribution Width 14.7 % (11.5-14.5) Platelet Count 195 x10^3/uL (140-400) Neutrophils (%) (Auto) 83 % (31-73) Lymphocytes (%) (Auto) 9 % (24-48) Monocytes (%) (Auto) 7 % (0-9) Eosinophils (%) (Auto) 0 % (0-3) Basophils (%) (Auto) 0 % (0-3) Neutrophils # (Auto) 9.4 x10^3/uL (1.8-7.7) Lymphocytes # (Auto) 1.0 x10^3/uL (1.0-4.8) Monocytes # (Auto) 0.8 x10^3/uL (0.0-1.1) Eosinophils # (Auto) 0.0 x10^3/uL (0.0-0.7) Basophils # (Auto) 0.0 x10^3/uL (0.0-0.2) Sodium Level 139 mmol/L (136-145) Potassium Level 4.5 mmol/L (3.5-5.1) Chloride Level 104 mmol/L (98-107) Carbon Dioxide Level 31 mmol/L (21-32) Anion Gap 4 (6-14) Blood Urea Nitrogen 21 mg/dL (7-20) Creatinine 0.9 mg/dL (0.6-1.0) Estimated GFR (Cockcroft-Gault) 59.5 Glucose Level 173 mg/dL (70-99) Calcium Level 9.2 mg/dL (8.5-10.1) Physical Exam HEENT: Neck Supple W Full Motion Chest: Symmetric LUNGS: Other (diminished bases) Heart: S1S2, RRR (Atrial paced) Abdomen: Soft N/T Extremities: No Calf Tenderness Neurology: alert, oriented, follow commands Assessment Assessment 1. Chest pain: possibly combination of bronchospasm and vasopasm 2. CAD: past CABG. LHC revealed 100% chronic total occlusions of the SVG to RCA/OM but with distal reconstitution from collaterals. 3. ICM: compensated. EF 45% per TTE 4. HTN: controlled, low marginal 5. HLP: intensify statin, May need to add PCSK9i 6. MEDICAL DEVICE-D in situ 7. DM2 Recommendations 1. Follow up in office in 2 weeks. 2. Continue with current regimen in addition of lisinopril and imdur. Continue ASA/plavix 3. Decrease coreg for now with low marginal BP to allow addition of ACEi. 4. Continue with lasix therapy, extra dose today 5. Interrogate device. 6. Weigh daily, 2 L FR ESDRAS HUGGINS MD 06/09/192032: CARDIO Progress Notes Assessment Assessment Patient seen and examined. Agree with APRON CLEANER's assessment and plan. Cardiac cath did not show any lesions needing intervention Trop elevation probably demand ischemia Cardiomyopathy clinically well compensated Continue current medical regimen Follow up in office in 2-4 weeks LOREN POE APRN Jun 09, 2019 12:36 ESDRAS HUGGINS MD Jun 09, 2019 20:33
[2019-06-09] MEDS ORDERED: LISINOPRIL 5 MG TABLET. PO SCH (13:00)
[2019-06-09 15:00] VITALS: BP 93/50
[2019-06-09] MEDS ORDERED: FUROSEMIDE 40 MG TABLET. PO ONE (15:00)
--- NOTE | 2019-06-09 16:00 | NUR ---
Discharge Note: DUANE LENZ [address] Discharge instructions and discharge home medications reviewed with Patient and Daughter Felipa and a copy given. All questions have been answered and understanding verbalized. The following instructions and handouts were given: Cardiac Rehab, CP, post cardiac cath, protonix, GERD, Diet for GERD, lisinopril, follow up Discontinued lines and drains: Peripheral IV intact. Patient discharged to Home or Self Care with Family Member via Wheelchair
[2019-06-09] MEDS ORDERED: CARVEDILOL 12.5 MG TABLET. PO SCH (17:00)
[2019-06-09] MEDS ORDERED: ATORVASTATIN CALCIUM 20 MG TABLET PO SCH (21:00)
--- NOTE | 2019-06-10 18:08 | DS ---
DATE OF DISCHARGE: 06/09/2019 ADMISSION DIAGNOSIS: Chest pain. DISCHARGE DIAGNOSIS: Atypical chest pain (she had a clean cardiac catheterization). HOSPITAL COURSE: The patient is a pleasant 83-year-old female, who presented with chest pain. She was admitted. We consulted Cardiology. She was taken for cardiac catheterization. It was clean. We discharged to home. DISPOSITION: Home. ACTIVITY: As tolerated. MEDICATIONS: Please see MRAD. TOTAL TIME: 32 minutes. AURELIA HICKEY DO DR: TREVON/vikas JOB#: [id number] / [id number]
== END 2019-06-09 16:00 | disposition home or self-care (01) | DRG 287 ==
LOC: ER 05:49 → 2 SOUTH 06:52
PROVIDERS: ADMIT Internal Medicine; ATTEND Internal Medicine
PROC: 4A023N7 Measurement of Cardiac Sampling and Pressure, Left Heart, Percutaneous Approach (ICD-10-PCS; principal; 2019-06-08)
PROC: B2151ZZ Fluoroscopy of Left Heart using Low Osmolar Contrast (ICD-10-PCS; 2019-06-08)
PROC: B2111ZZ Fluoroscopy of Multiple Coronary Arteries using Low Osmolar Contrast (ICD-10-PCS; 2019-06-08)
PROC: B2131ZZ Fluoroscopy of Multiple Coronary Artery Bypass Grafts using Low Osmolar Contrast (ICD-10-PCS; 2019-06-08)
PROC: 4A033BC Measurement of Arterial Pressure, Coronary, Percutaneous Approach (ICD-10-PCS; 2019-06-08)
DX: T82.858A Stenosis of other vascular prosthetic devices, implants and grafts, initial encounter (principal); I50.22 Chronic systolic (congestive) heart failure; I25.110 Atherosclerotic heart disease of native coronary artery with unstable angina pectoris; I11.0 Hypertensive heart disease with heart failure; E11.9 Type 2 diabetes mellitus without complications; E78.00 Pure hypercholesterolemia, unspecified; I25.82 Chronic total occlusion of coronary artery; E78.5 Hyperlipidemia, unspecified; E83.42 Hypomagnesemia; E87.6 Hypokalemia; I25.5 Ischemic cardiomyopathy; I44.7 Left bundle-branch block, unspecified; K21.9 Gastro-esophageal reflux disease without esophagitis; I34.0 Nonrheumatic mitral (valve) insufficiency; Y83.2 Surgical operation with anastomosis, bypass or graft as the cause of abnormal reaction of the patient, or of later complication, without mention of misadventure at the time of the procedure; Y92.89 Other specified places as the place of occurrence of the external cause; Z82.49 Family history of ischemic heart disease and other diseases of the circulatory system; Z95.1 Presence of aortocoronary bypass graft; Z95.810 Presence of automatic (implantable) cardiac defibrillator; Z88.8 Allergy status to other drugs, medicaments and biological substances; Z79.899 Other long term (current) drug therapy
CPT/HCPCS: 93459; 93571; 96374; 96375; 99285; G0269; 36415; 71045; 80048; 80053; 80061; 82550; 83690; 83735; 83880; 84484; 85025; 85610; 93005; 93306; 99152; 99153; C1760; C1769; C1887; C1892; J0153; J1200; J1644; J2250; J2270; J2405; J2930; J3010; J3480; J3490; Q9967; 97116; C1771; G0378

== ENCOUNTER 2019-10-01 13:05 | Emergency (ER) | payer MEDICARE, BC ==
[~2019-10-01] VITALS: Ht 149.9 cm; Wt 66.7 kg
[~2019-10-01 13:05] MED LIST changes: +ASPI-612 PO; +CETI10TA24 PO; +LISI2.5T PO
[2019-10-01] MEDS ORDERED: IV NORMAL SALINE 1000ML BAG 1,000 ML IV ONE (14:45)
[2019-10-01 14:46] LABS: BILIRUBIN,URINE NEGATIVE (NEG); CLARITY,URINE CLEAR; COLOR,URINE YELLOW; NITRITE,URINE NEGATIVE (NEG); PROTEIN,URINE 30 mg/dL (NEG-TRACE)
[2019-10-01 14:49] LABS: BACTERIA,URINE 0 /HPF (0-FEW); SQUAMOUS EPITHELIAL CELL,UR FEW /LPF
[2019-10-01 15:14] LABS: BASO # 0.1 x10^3/uL (0.0-0.2); BASO % 1 % (0-3); EOS # 0.2 x10^3/uL (0.0-0.7); EOS % 2 % (0-3); HEMATOCRIT 43.3 % (36.0-47.0); HEMOGLOBIN 14.4 g/dL (12.0-15.5); LYMPH # 1.4 x10^3/uL (1.0-4.8); LYMPH % 17 % (24-48); MEAN CORPUSCULAR HEMOGLOBIN 29 pg (25-35); MEAN CORPUSCULAR HGB CONC 33 g/dL (31-37); MEAN CORPUSCULAR VOLUME 87 fL (79-100); MONO # 0.7 x10^3/uL (0.0-1.1); MONO % 9 % (0-9); NEUT # 5.8 x10^3/uL (1.8-7.7); NEUT % 71 % (31-73); PLATELET COUNT 159 x10^3/uL (140-400); RED BLOOD COUNT 4.99 x10^6/uL (3.50-5.40); RED CELL DISTRIBUTION WIDTH 14.6 % (11.5-14.5); WHITE BLOOD COUNT 8.2 x10^3/uL (4.0-11.0)
[2019-10-01 15:16] LABS: CALCIUM 9.9 mg/dL (8.5-10.1); CREATININE 0.7 mg/dL (0.6-1.0); GFR 79.5; POTASSIUM 3.8 mmol/L (3.5-5.1)
[2019-10-01 15:23] LABS: ALBUMIN 3.5 g/dL (3.4-5.0); ALBUMIN/GLOBULIN RATIO 0.9 (1.0-1.7); TOTAL BILIRUBIN 1.4 mg/dL (0.2-1.0); TOTAL PROTEIN 7.2 g/dL (6.4-8.2)
[2019-10-01 15:29] VITALS: BP 190/94
[2019-10-01] MEDS ORDERED: ONDANSETRON PF 4 MG/2 ML VIAL. IVP ONE ×2 (15:45→17:45)
--- NOTE | 2019-10-01 15:50 | PHYS DOC ---
Past Medical History Past Medical History: CAD, Diabetes-Type II, High Cholesterol, Hypertension Additional Past Medical Histor: PPM, bells palsy Past Surgical History: Pacemaker Additional Past Surgical Histo: cabg Alcohol Use: Rarely Drug Use: None Adult General Chief Complaint Chief Complaint: DEHYDRATION HPI HPI Patient is a 83 year old female with history of type 2 diabetes who presents with cough, congestion 2 days with mid thoracic interscapular back pain and nausea. No fevers chills or sweats. No vomiting. No chest pain chest tightness. Pain is worse with coughing and palpation. Cough is nonproductive. No shortness breath or wheezing. Reports decreased appetite due to nausea and no abdominal pain or diarrhea. No urinary frequency urgency or dysuria. No other acute symptoms or complaints.[] Review of Systems Review of Systems ROS as per HPI All other systems were reviewed and found to be within normal limits, except as documented in this note. Current Medications Current Medications Current Medications Medications (Trade) Dose Ordered Sig/Evgeny Start Time Stop Time Status Last Admin Dose Admin Ondansetron HCl (Zofran) 4 mg 1X ONCE 10/01/19 17:45 10/01/19 17:46 DC 10/01/19 17:45 4 MG Sodium Chloride 1,000 ml @ 1,000 mls/hr 1X ONCE 10/01/19 14:45 10/01/19 15:44 DC 10/01/19 14:59 1,000 MLS/HR Allergies Allergies Allergies Coded Allergies Type Severity Reaction Last Updated Verified codeine Allergy Intermediate 06/08/19 Yes iodine Allergy Intermediate Rash 06/08/19 Yes rosuvastatin Allergy Intermediate 06/08/19 Yes ezetimibe Adverse Reaction Intermediate 06/08/19 Yes rosiglitazone Adverse Reaction Intermediate Nausea and Vomiting 06/08/19 Yes Physical Exam Physical Exam Constitutional: Well developed, well nourished, no acute distress, non-toxic appearance. [] HENT: Normocephalic, atraumatic, bilateral external ears normal, oropharynx moist, no oral exudates, nose normal. [] Eyes: PERRLA, Left eye, chronic tearing, conjunctiva injected with matting and blepharitis lumbar and lower eyelids no pain with ocular movement. Right eye, chronic tearing with min conjunctivitis, no matting or blepharitis [] Neck: Normal range of motion. [] Cardiovascular:Heart rate regular rhythm, no murmur. [] Lungs & Thorax: Bilateral breath sounds clear. [] Abdomen: Bowel sounds normal, soft, no tenderness. [] Skin: Warm, dry, no erythema, no rash. [] Back: Mid thoracic Interscapular back pain, TTP reproducing symptoms. [] Extremities: No tenderness, no edema. [] Neurologic: Alert and oriented X 3, normal motor function, normal sensory function, no focal deficits noted. [] Psychologic: Affect normal, judgement normal, mood normal. [] Current Patient Data Vital Signs Vital Signs Date Time Temp Pulse Resp B/P (MAP) Pulse Ox O2 Delivery O2 Flow Rate FiO2 10/01/19 13:45 98.6 90 18 189/108 (135) 96 Room Air 98.6 Lab Values Laboratory Tests Test 10/01/19 13:50 10/01/19 14:50 10/01/19 16:00 Urine Collection Type Unknown Urine Color Yellow Urine Clarity Clear Urine pH 6.0 Urine Specific [place] 1.015 Urine Protein 30 mg/dL (NEG-TRACE) Urine Glucose (UA) Negative mg/dL (NEG) Urine Ketones (Stick) Trace mg/dL (NEG) Urine Blood Moderate (NEG) Urine Nitrite Negative (NEG) Urine Bilirubin Negative (NEG) Urine Urobilinogen Dipstick 1.0 mg/dL (0.2 mg/dL) Urine Leukocyte Esterase Small (NEG) Urine RBC 6-10 /HPF (0-2) Urine WBC 1-4 /HPF (0-4) Urine Squamous Epithelial Cells Few /LPF Urine Bacteria 0 /HPF (0-FEW) White Blood Count 8.2 x10^3/uL (4.0-11.0) Red Blood Count 4.99 x10^6/uL (3.50-5.40) Hemoglobin 14.4 g/dL (12.0-15.5) Hematocrit 43.3 % (36.0-47.0) Mean Corpuscular Volume 87 fL (79-100) Mean Corpuscular Hemoglobin 29 pg (25-35) Mean Corpuscular Hemoglobin Concent 33 g/dL (31-37) Red Cell Distribution Width 14.6 % (11.5-14.5) H Platelet Count 159 x10^3/uL (140-400) Neutrophils (%) (Auto) 71 % (31-73) Lymphocytes (%) (Auto) 17 % (24-48) L Monocytes (%) (Auto) 9 % (0-9) Eosinophils (%) (Auto) 2 % (0-3) Basophils (%) (Auto) 1 % (0-3) Neutrophils # (Auto) 5.8 x10^3/uL (1.8-7.7) Lymphocytes # (Auto) 1.4 x10^3/uL (1.0-4.8) Monocytes # (Auto) 0.7 x10^3/uL (0.0-1.1) Eosinophils # (Auto) 0.2 x10^3/uL (0.0-0.7) Basophils # (Auto) 0.1 x10^3/uL (0.0-0.2) Sodium Level 141 mmol/L (136-145) Potassium Level 3.8 mmol/L (3.5-5.1) Chloride Level 101 mmol/L (98-107) Carbon Dioxide Level 30 mmol/L (21-32) Anion Gap 10 (6-14) Blood Urea Nitrogen 10 mg/dL (7-20) Creatinine 0.7 mg/dL (0.6-1.0) Estimated GFR (Cockcroft-Gault) 79.5 BUN/Creatinine Ratio 14 (6-20) Glucose Level 131 mg/dL (70-99) H Calcium Level 9.9 mg/dL (8.5-10.1) Total Bilirubin 1.4 mg/dL (0.2-1.0) H Aspartate Amino Transferase (AST) 21 U/L (15-37) Alanine Aminotransferase (ALT) 17 U/L (14-59) Alkaline Phosphatase 60 U/L (46-116) Troponin I Quantitative 0.025 ng/mL (0.000-0.055) VE-Qmc-G-Type Natriuretic Peptide 6926 pg/mL (0-449) H Total Protein 7.2 g/dL (6.4-8.2) Albumin 3.5 g/dL (3.4-5.0) Albumin/Globulin Ratio 0.9 (1.0-1.7) L Influenza Type A Antigen Negative (NEGATIVE) Influenza Type B Antigen Negative (NEGATIVE) Laboratory Tests 10/01/19 14:50 Laboratory Tests 10/01/19 14:50 EKG EKG [EKG: reviewed] Radiology/Procedures Radiology/Procedures CXR: NAD per radiology report[] Course & Med Decision Making Course & Med Decision Making Pertinent Labs and Imaging studies reviewed. (See chart for details) [Nausea improved with treatment. Lab and imaging EKG reviewed. Clinically, the patient has upper respiratory tract infection with mechanical back pain. Low ind ex of suspicion for CAD. We'll treat supportively with close PCP follow-up. Return precautions reviewed. Patient and daughter verbalize understanding agreement discharge instructions prior to departure. Dragon Disclaimer Dragon Disclaimer This electronic medical record was generated, in whole or in part, using a voice recognition dictation system. Departure Departure Impression: Primary Impression: Upper respiratory infection Additional Impression: Nausea Disposition: HOME, SELF-CARE Condition: STABLE Referrals: MIMI DON MD (PCP) Patient Instructions: Nausea, Adult, [id number], Upper Respiratory Infection, Adult, [id number] Additional Instructions: Please take for nausea, continue home medications. Drink clear liquids with soft diet tolerated. Follow-up with your PCP early next week if symptoms persist. Return to the ED if new or worsening symptoms. Scripts Ondansetron Hcl (ZOFRAN) 4 Mg Tablet 1 TAB PO Q6HRS, #10 TAB 0 Refills Prov: YESI MARQUIS DO 10/01/19 Problem Qualifiers YESI MARQUIS DO Oct 01, 2019 15:50
--- NOTE | 2019-10-01 15:56 | RAD ---
EXAM: Chest, single view. HISTORY: Shortness of air. COMPARISON: None. FINDINGS: A frontal view of the chest obtained. There is suspected stable mild interstitial prominence without katie congestion or consolidation. There is a stable prominent cardiac silhouette and evidence of prior CABG. There is a cardiac pacemaker defibrillator unchanged in position. IMPRESSION: Stable diffuse interstitial prominence and prominent cardiac silhouette. There is no katie congestion or consolidation. Electronically signed by: Chioma Kulkarni MD (10/01/2019 3:53 PM) [place] [id number]
[2019-10-01 16:34] LABS: INFLUENZA A PATIENT NEGATIVE (NEGATIVE); INFLUENZA B PATIENT NEGATIVE (NEGATIVE)
--- NOTE | 2019-10-01 16:36 | EKG ---
[facility] [address] [place] [address] Test Date: 2019-10-01 Test Time: 16:07:22 Pat Name: DUANE LENZ Department: Room: Gender: F Quality Director: : [id number] Requested By: YESI MARQUIS Order Number: [id number] Reading MD: Measurements Intervals [place] Rate: 85 P: 36 MA: 274 QRS: 2 QRSD: 146 T: 180 QT: 392 QTc: 467 Interpretive Statements SINUS ARRHYTHMIA VENTRICULAR PREMATURE COMPLEX(ES) PROLONGED MA INTERVAL LEFT ATRIAL ABNORMALITY NON SPECIFIC INTRAVENTRICULAR BLOCK QRS(T) CONTOUR ABNORMALITY CONSIDER ANTEROSEPTAL MYOCARDIAL DAMAGE ABNORMAL ECG RI6.01 No previous ECG available for comparison
[2019-10-01] MEDS ORDERED: ONDA4TAB7 PO (18:14)
== END 2019-10-01 18:40 | disposition home or self-care (01) ==
LOC: ER 13:05
DX: J06.9 Acute upper respiratory infection, unspecified (principal); M54.6 Pain in thoracic spine; E11.9 Type 2 diabetes mellitus without complications; E78.00 Pure hypercholesterolemia, unspecified; I10 Essential (primary) hypertension; I25.10 Atherosclerotic heart disease of native coronary artery without angina pectoris; Z95.0 Presence of cardiac pacemaker; Z95.1 Presence of aortocoronary bypass graft; Z88.5 Allergy status to narcotic agent; Z88.8 Allergy status to other drugs, medicaments and biological substances
CPT/HCPCS: 36415; 71045; 80053; 81001; 83880; 84484; 85025; 87086; 87804; 93005; 96361; 96374; 99285; J2405; J7030

== ENCOUNTER → 2020-05-18 | Outpatient (CLI) | payer MEDICARE, BC ==
[~2020-05-18] MED LIST changes: -ASPI-612 PO; +ASPI-886 PO; +FERR-36 PO; +NITR0.4T22 SL; +ONDA4TAB7 PO; +PANT40TA77 PO
--- NOTE | 2020-05-18 15:15 | PDOC2 ---
INITIAL PAIN CONSULT DATE OF SERVICE: DOS: DATE: 05/18/20 TIME: 15:05 CHIEF COMPLAINT: Chief Complaint: Low back pain HISTORY OF PRESENT ILLNESS: 84-year-old female presents history of pain in the low back for many years worse over the past 1 year or so not result of any specific injury or accident that she is aware of. Patient ports the pain is worse with walking standing changing positions better with sitting or laying down does not awaken her from sleep most nights it does not does not affect her bowel bladder control either. Patient reports has had physical therapy as recently as this past winter with good results temporarily also has had good results with Medrol Dosepaks in the past and trigger point injections which she had an outside facility about a year ago and then about 2 years ago before that. Reports pain is now becoming more constant in the low back worse with walking standing changing positions patient getting up from a seated position and she finds her self sitting still more often which she is not happy about she likes to stay active. 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 Patient not had any recent diagnostic studies of the lumbar spine or otherwise. PAST MEDICAL HISTORY: PMH: COPD, hearing loss, diabetes, arthritis PREVIOUS SURGERIES: Past Surgical Hx: Bilateral cataract extraction, tear duct surgery, torn meniscus repair, pacemaker defibrillator placement x3 CURRENT MEDICATIONS: Current Meds: Active Scripts Medications Dose Route/Sig Max Daily Dose Days Date Category Dose Instructions NITROGLYCERIN SubLingual (Nitroglycerin) 0.4 Mg Tab.subl 1 Tab SL UD 05/18/20 Reported 1st sign of attack; may repeat every 5 mins; if pain persists after 3 in 15 min, medical attention is recommended Pantoprazole Sodium (Pantoprazole Sodium) 40 Mg Tablet.dr Unknown Dose PO DAILYAC 05/18/20 Reported Iron (Ferrous Sulfate) 325 Mg Tablet 1 Tab PO BID 30 05/18/20 Reported Zyrtec (Cetirizine Hcl) 10 Mg Tablet 1 Tab PO DAILY 06/08/19 Reported Furosemide 40 Mg Tablet 1 Tab PO NOON 06/08/19 Reported Gabapentin (Gabapentin) 300 Mg Capsule 2 Tab PO HS 06/08/19 Reported Isosorbide Mononitrate Er (Isosorbide Mononitrate) 30 Mg Tab.er.24h 1 Tab PO DAILY 08/02/17 Reported Coreg (Carvedilol) 25 Mg Tablet 0.5 Tab PO BID 08/02/17 Reported Lipitor (Atorvastatin Calcium) 20 Mg Tablet 80 Mg PO DAILY 08/02/17 Reported Amaryl (Glimepiride) 4 Mg Tablet 2 Tab PO BID 08/02/17 Reported Montelukast Sodium Tablet (Montelukast Sodium) 10 Mg Tablet 1 Tab PO DAILY 08/02/17 Reported Gabapentin (Gabapentin) 300 Mg Capsule 300 Mg PO BIDWBKFT/CHICO 08/02/17 Reported Lovaza ([place]-3 Acid Ethyl Esters) 1 Gm Capsule 3 Cap PO BID 08/02/17 Reported Januvia (Sitagliptin Phosphate) 100 Mg Tablet 1 Tab PO DAILY 08/02/17 Reported Flonase Allergy Relief (Fluticasone Propionate) 9.9 Ml [place].susp 2 Sprays NS DAILY 08/02/17 Reported Furosemide 40 Mg Tablet 2 Tab PO DAILY 08/02/17 Reported Clopidogrel (Clopidogrel Bisulfate) 75 Mg Tablet 1 Tab PO DAILY 08/02/17 Reported ALLERGIES; Allergies: Coded Allergies: codeine (Verified Allergy, Intermediate, 06/08/19) HALLUCINATIONS, ELLIOTT iodine (Verified Allergy, Intermediate, Rash, 06/08/19) rosuvastatin (Verified Allergy, Intermediate, 06/08/19) KIDNEY PROBLEMS ezetimibe (Verified Adverse Reaction, Intermediate, 06/08/19) ANKLE SWELLING rosiglitazone (Verified Adverse Reaction, Intermediate, Nausea and Vomiting, 06/08/19) FAMILY HISTORY: Family Hx: Ovarian cancer in patient's mother, stroke in patient's father and sister SOCIAL HISTORY: Social Hx: Patient does not drink alcohol does not smoke not using illegal illicit or recreational drugs is lives with her daughter locally in [facility] REVIEW OF SYSTEMS: ROS: Positive for those items mentioned in his present illness all systems are reviewed otherwise negative complete full,and well-documented on patient's chart. PHYSICAL EXAM: VS: Blood pressure is 108/57 pulse 72 respirations 18 temperature is 98.2 F 4 foot 11 inches weight is 142 pounds PE: PHYSICAL EXAMINATION: GENERAL: The patient is awake, alert, oriented, appropriate, very pleasant demeanor HEENT: Shows normocephalic, atraumatic. Extraocular movements are intact and symmetrical. Oral cavity: Mucous membranes moist and pink. NECK: Shows anterior throat supple without palpable lymphadenopathy noted. Swallow reflex symmetrical. CHEST: Shows normal on inspection. Breath sounds are clear bilaterally, no rales rhonchi or wheezes auscultated. HEART: Shows S1, S2 clear. No murmurs auscultated. ABDOMEN: Soft, nontender, nondistended. No palpable organomegaly is noted. No rebound or guarding demonstrated. BACK: Shows spine grossly in the midline. Normal-appearing cervical lordotic curvature. There is slightly increased thoracic kyphosis, some minor flattening of the lumbar lordotic curvature. Lumbar paraspinous muscles show symmetrical on inspection, on palpation shows significant tenderness diffusely throughout the upper, middle and lower distribution of the paraspinous muscles bilaterally and also into the lower thoracic paraspinous musculature, firm and tender, with specific trigger points, very firm and tender bilaterally exquisitely to even moderate pressure and palpation, without radiation of pain. The patient has good rotational motion of the lumbar spine, both laterally as well as extension and flexion without significant difficulty. No tenderness over the spinous processes, sacrum or sacroiliac regions. EXTREMITIES: Lower extremities show deep tendon reflexes 1+ in the patellar and tendo calcaneus tendons. Motor exam is 5 on a scale of 5 with right dorsiflexion, extension, quadriceps and hamstring flexion and 5/5 on the left. Peripheral pulses are 1+ posterior tibial. No peripheral edema is noted bilaterally. Lower extremities are warm and dry to touch, equal in color and appearance. Straight leg raise noted to be negative on the right ;left side is negative also. Gaenslen's and John's maneuvers are negative as well. The patient is able to stand, stand on her toes but loses balance fairly quickly walking with a normal to shuffling appearing gait does not appear to favor the right or left lower extremity significantly not use any assistive devices such as canes or walkers to ambulate. SKIN: Shows warm and dry, good turgor. No edema. No sores, rashes or bruising throughout. IMPRESSION: Impression: 84-year-old female with approximate 1 year history increasing pain low back. COPD Hearing loss Arthritis Cardiac disease options were discussed with the patient, including medical management continue physical therapies as well as interventional techniques. Discussed trigger point injections as well as possible lumbar epidural steroid injection. Patient is interested in each of these but would like to discuss this with her daughter first. We will also get a CT scan of lumbar spine ordered to better assess the lumbar infrastructure. We will have patient return in approximately 2 weeks and following the CT scan of the lumbar spine to discuss the results and consider further treatment at that time possibly trigger point injections. patient understands and agrees and will follow-up as scheduled DOLORES KEEN MD May 18, 2020 15:15
== END | disposition home or self-care (01) ==
LOC: PNCL 13:18
PROVIDERS: ATTEND Anesthesiology
DX: M54.5 Low back pain (principal); J44.9 Chronic obstructive pulmonary disease, unspecified; E11.9 Type 2 diabetes mellitus without complications; M19.90 Unspecified osteoarthritis, unspecified site; H91.8X9 Other specified hearing loss, unspecified ear; Z88.8 Allergy status to other drugs, medicaments and biological substances; Z79.82 Long term (current) use of aspirin; Z98.890 Other specified postprocedural states; Z88.5 Allergy status to narcotic agent; Z79.899 Other long term (current) drug therapy
CPT/HCPCS: G0463

== ENCOUNTER → 2020-05-25 | Outpatient (CLI) | payer MEDICARE, BC ==
[~2020-05-25] MED LIST changes: -CETI10TA24 PO; +CETI10TA74 PO
--- NOTE | 2020-05-25 15:33 | RAD ---
EXAM: CT Lumbar Spine without IV contrast INDICATION: Reason: LOW BACK PAIN / Spl. Instructions: / History: TECHNIQUE: Multi-detector row CT images were obtained through the lumbar spine without the use of IV contrast. Post-processing sagittal and coronal reconstructed images were obtained for interpretation. All CT scans performed at this facility utilize dose optimization techniques as appropriate to the exam, including the following: Automated exposure control and adjustment of the mA and/or KV according to patient size (this includes techniques or standardized protocols for targeted exams where dose is indication/reason for exam). COMPARISON: None FINDINGS: The lowest fully formed disc is referred to as the L5-S1 level. ALIGNMENT: Alignment shows levoscoliosis of the lumbar spine. There is also grade 1 anterolisthesis of L5 on S1 of 7 mm and subtle retrolisthesis of T12 on L1 of 1 to 2 mm. There is also mild lateral leftward listhesis of L1 relative to T12 (3 mm) and of rightward lateral listhesis of L4 relative to L3 (7 mm). OSSEOUS: Bilateral chronic L5 pars defects are present. No acute fracture or aggressive osseous lesions. Generalized osteopenia. DISC SPACES: At T12-L1, Disc osteophyte complex with marked loss of height and bilateral facet hypertrophy results in severe central canal stenosis and severe bilateral foraminal stenoses. At L1-L2, disc bulge with bilateral facet hypertrophy and mild ligamentum flavum thickening results in moderate to severe central canal transverse narrowing to a 4 mm diameter and in severe right and moderate to severe left bilateral foraminal stenosis. At L2-L3, combination of disc osteophyte complex and bilateral ligamentum flavum thickening and facet hypertrophy results in moderate left and severe right bilateral foraminal stenosis and in moderate central canal stenosis. At L3-L4, disc osteophyte complex and listhesis along with bilateral facet hypertrophy and ligamentum flavum thickening results in severe central canal stenosis, severe right foraminal stenosis and moderate to severe left foraminal stenosis. At L4-L5, disc osteophyte complex. Bulge, loss of height and facet hypertrophy results in mild to moderate central canal stenosis, severe left foraminal stenosis and moderate right foraminal stenosis. At L5-S1, combination of grade 1 anterolisthesis in the setting of bilateral pars defects as well as marked disc loss of height results in moderate to severe left foraminal stenosis and moderate right foraminal stenosis. Central canal appears patent. SOFT TISSUES: Scattered arterial calcifications with ectasia of the infrarenal abdominal aorta measuring at least 3.2 cm although incompletely visualized. IMPRESSION: Multilevel lumbar spinal degenerative spondylosis as detailed above with generalized osteopenia and chronic bilateral L5 pars defects associated with listhesis. No acute or aggressive osseous lesions. Electronically signed by: Malcolm Nelson MD (05/25/2020 3:30 PM) [id number]
== END | disposition home or self-care (01) ==
LOC: CT 15:46
PROVIDERS: ATTEND Anesthesiology
DX: M47.816 Spondylosis without myelopathy or radiculopathy, lumbar region (principal); M43.17 Spondylolisthesis, lumbosacral region; M41.86 Other forms of scoliosis, lumbar region; M25.78 Osteophyte, vertebrae; M48.05 Spinal stenosis, thoracolumbar region; M48.07 Spinal stenosis, lumbosacral region; I70.0 Atherosclerosis of aorta; I77.811 Abdominal aortic ectasia; M85.88 Other specified disorders of bone density and structure, other site
CPT/HCPCS: 72131

== ENCOUNTER → 2020-06-08 | Outpatient (CLI) | payer MEDICARE, BC ==
[~2020-06-08] MED LIST changes: +IOHEXOL 180 MG/ML 10 ML VIAL. ONE; +methylPREDNISolone ACETATE 40 MG/ML VIAL. ONE; +methylPREDNISolone ACETATE 80 MG/ML VIAL. ONE
--- NOTE | 2020-06-08 13:44 | PDOC ---
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 We had discussed the results with her over the phone on May 31 and patient brings her daughter with her today and we discussed the findings further on the CT scan lumbar spine showing multilevel lumbar spine spinal degenerative spondylosis and stenosis with multiple areas of severe foraminal stenosis and central stenosis as well. Patient reports still significant pain across the low back bilaterally and into the posterior gluteus lateral thighs anterior thighs at times mostly across the low back patient reports a 3 on a scale of 10 is worse with the past week 3 on average 3 its least is a 3 today patient which is becoming more constant however with walking standing changing positions as a day goes on and she is on her feet longer at work it becomes worse. Patient reports no new motor or sensory deficits no bowel or bladder incontinence. Has been off of her Plavix now for over a week Physical Exam: VS: Blood pressure is 141/68 pulse 76 respiration 16 temperature 98.2 F weight is 145 pounds PE: PHYSICAL EXAMINATION: GENERAL: The patient is awake, alert, oriented, appropriate, very pleasant demeanor, patient accompanied by her daughter HEENT: Shows normocephalic, atraumatic. Extraocular movements are intact and symmetrical. Oral cavity: Mucous membranes moist and pink. Dentition is intact. NECK: Shows anterior throat supple without palpable lymphadenopathy noted. Swallow reflex symmetrical. CHEST: Shows normal on inspection. Breath sounds are clear bilaterally, distant but no rales rhonchi or wheezes auscultated. HEART: Shows S1, S2 clear. No murmurs auscultated. ABDOMEN: Soft, nontender, nondistended. No palpable organomegaly is noted. No rebound or guarding demonstrated. BACK: Shows spine grossly in the midline. Normal-appearing cervical lordotic curvature. There is slightly increased thoracic kyphosis, some minor flattening of the lumbar lordotic curvature. Lumbar paraspinous muscles show symmetrical on inspection, on palpation shows some moderate tenderness diffusely throughout the upper, middle and lower distribution of the paraspinous muscles bilaterally without specific trigger points, without radiation of pain. The patient has good rotational motion of the lumbar spine, both laterally as well as extension and flexion without significant difficulty. No tenderness over the spinous processes, sacrum or sacroiliac regions. EXTREMITIES: Lower extremities show deep tendon reflexes 1+ in the patellar and tendo calcaneus tendons. Motor exam is 5 on a scale of 5 with right dorsiflexion, extension, quadriceps and hamstring flexion and 5/5 on the left. Peripheral pulses are 1+ posterior tibial. No peripheral edema is noted bilaterally. Lower extremities are warm and dry to touch, equal in color and appearance. SKIN: Shows warm and dry, good turgor. No edema. No sores, rashes or bruising throughout. Procedure: Procedure: Options were discussed with the patient. Patient's old chart was reviewed as her current medication regimen updated current review of systems updated today as well. We will proceed with a lumbar epidural surgery today as the first in a series with fluoroscopic guidance. Risks were discussed including but not limited to: Bleeding, infection, possibility of epidural hematoma and subsequent neurological compromise, dural puncture, headaches, spinal cord and/or nerve damage, side effects of steroid medication, and poor results regarding pain control. Patient understands wished to proceed. Patient return to clinic in approximate 2 weeks for follow-up was counseled as to return appointment activity level and side effects be aware. Patient will restart taking Plavix tomorrow the . Medication Injected: Med Injected: Procedure is lumbar epidural steroid injection under local anesthetic using sterile prep and drape at the L4-5 level using C-arm fluoroscopic guidance in both AP and lateral views medications injected is 120 mg Depo-Medrol + 10 mL preservative-free normal saline and 2 mL contrast- condition at discharge is stable patient tolerated procedure well had no complications. Condition at Discharge: Condition at Discharge: Condition at discharge stable patient tolerated the procedure well had no complications. DOLORES KEEN MD Jun 08, 2020 13:44
== END | disposition home or self-care (01) ==
LOC: PNCL 12:50
PROVIDERS: ATTEND Anesthesiology
DX: M51.16 Intervertebral disc disorders with radiculopathy, lumbar region (principal); M48.061 Spinal stenosis, lumbar region without neurogenic claudication; M79.18 Myalgia, other site; I11.0 Hypertensive heart disease with heart failure; I50.9 Heart failure, unspecified; E11.22 Type 2 diabetes mellitus with diabetic chronic kidney disease; J44.9 Chronic obstructive pulmonary disease, unspecified; E78.5 Hyperlipidemia, unspecified; E78.00 Pure hypercholesterolemia, unspecified; Z98.890 Other specified postprocedural states; Z88.5 Allergy status to narcotic agent; Z88.8 Allergy status to other drugs, medicaments and biological substances; Z79.899 Other long term (current) drug therapy; Z79.84 Long term (current) use of oral hypoglycemic drugs
CPT/HCPCS: 62323; J1030; J1040; Q9965

== ENCOUNTER → 2020-07-06 | Outpatient (CLI) | payer MEDICARE, BC ==
[~2020-07-06] MED LIST changes: -IOHEXOL 180 MG/ML 10 ML VIAL. ONE; -methylPREDNISolone ACETATE 40 MG/ML VIAL. ONE; -methylPREDNISolone ACETATE 80 MG/ML VIAL. ONE
--- NOTE | 2020-07-06 13:24 | PDOC ---
Progress Note - Pain Clinic Date of Service: DOS: DATE: 07/06/20 TIME: 13:21 Diagnosis: Dx: Lumbar radiculopathy with lumbar degenerative disc disease lumbar spinal stenosis Myofascial pain History or Present Illness: HPI: 84-year-old female returns follow-up status post lumbar epidural steroid action x1. Patient reports about 50% improvement overall in the pain in the low back bilateral lower extremities pain returning slightly over the past few days but otherwise doing fairly well low back bilateral lower extremities posterior gluteus posterior lateral thigh lateral anterior thighs medial thighs also some cramping over the past day or 2. Patient's injection was on June 08, 2020 almost 1 month ago. Patient ports been sleeping better at night increased activity distance walking try with greater ease and comfort doing household activities greater ease patient cries the pain now is aching and dull sometimes sharp and shooting in the lower extremities patient rates her pain is a 3 on scale 10 is worse over the past week 2 on average to its least is a 2 today. Patient reports no new motor or sensory deficits no new bowel or bladder incontinence or other complaints. Physical Exam: VS: Blood pressure is 122/55 pulse 67 respirations 18 temperature is 97.5 F weight is 142 pounds PE: PHYSICAL EXAMINATION: GENERAL: The patient is awake, alert, oriented, appropriate, very pleasant demeanor, accompanied by her daughter HEENT: Shows normocephalic, atraumatic. Extraocular movements are intact and symmetrical. Oral cavity: Mucous membranes moist and pink. NECK: Shows anterior throat supple without palpable lymphadenopathy noted. Swallow reflex symmetrical. CHEST: Shows normal on inspection. Breath sounds are clear bilaterally. HEART: Shows S1, S2 clear. No murmurs auscultated. ABDOMEN: Soft, nontender, nondistended. No palpable organomegaly is noted. No rebound or guarding demonstrated. BACK: Shows spine grossly in the midline. Normal-appearing cervical lordotic curvature. There is slightly increased thoracic kyphosis, some minor flattening of the lumbar lordotic curvature. Lumbar paraspinous muscles show symmetrical on inspection, on palpation shows some moderate tenderness diffusely throughout the upper, middle and lower distribution of the paraspinous muscles bilaterally, but without specific trigger points, without radiation of pain. The patient has good rotational motion of the lumbar spine, both laterally as well as extension and flexion without significant difficulty. No tenderness over the spinous processes, sacrum or sacroiliac regions. EXTREMITIES: Lower extremities show deep tendon reflexes 1+ in the patellar and tendo calcaneus tendons. Motor exam is 5 on a scale of 5 with right dorsiflexion, extension, quadriceps and hamstring flexion and 5/5 on the left. Peripheral pulses are 1+ posterior tibial. No peripheral edema is noted bilaterally. Lower extremities are warm and dry to touch, equal in color and appearance. SKIN: Shows warm and dry, good turgor. No edema. No sores, rashes or bruising throughout. Procedure: Procedure: Options were discussed with the patient. Patient chart was reviewed as her current medication regimen updated current review of systems updated today as well. 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 In the meantime patient will continue with stretching strength exercises also walking daily as tolerated. Medication Injected: Med Injected: None Condition at Discharge: Condition at Discharge: Condition at discharge is stable. DOLORES KEEN MD Jul 06, 2020 13:24
== END ==
LOC: PNCL 13:01
PROVIDERS: ATTEND Anesthesiology
DX: M51.16 Intervertebral disc disorders with radiculopathy, lumbar region (principal); M48.061 Spinal stenosis, lumbar region without neurogenic claudication; M79.18 Myalgia, other site; J44.9 Chronic obstructive pulmonary disease, unspecified; I13.0 Hypertensive heart and chronic kidney disease with heart failure and stage 1 through stage 4 chronic kidney disease, or unspecified chronic kidney disease; I50.9 Heart failure, unspecified; N18.9 Chronic kidney disease, unspecified; E11.22 Type 2 diabetes mellitus with diabetic chronic kidney disease; E78.5 Hyperlipidemia, unspecified; Z88.5 Allergy status to narcotic agent; Z88.8 Allergy status to other drugs, medicaments and biological substances; Z79.84 Long term (current) use of oral hypoglycemic drugs; Z79.899 Other long term (current) drug therapy; Z98.890 Other specified postprocedural states
CPT/HCPCS: G0463

== ENCOUNTER → 2020-07-14 | Outpatient (CLI) | payer MEDICARE, BC ==
[~2020-07-14] MED LIST changes: +IOHEXOL 180 MG/ML 10 ML VIAL. ONE; +methylPREDNISolone ACETATE 40 MG/ML VIAL. ONE; +methylPREDNISolone ACETATE 80 MG/ML VIAL. ONE
--- NOTE | 2020-07-14 14:57 | PDOC ---
Progress Note - Pain Clinic Date of Service: DOS: DATE: 07/14/20 TIME: 14:53 Diagnosis: Dx: Lumbar radiculopathy with lumbar degenerative disc disease and lumbar spinal stenosis History or Present Illness: HPI: 84-year-old female returns follow-up status post lumbar epidural steroid traction x1. Patient reports about 50% in improvement in pain initially now about 25% overall she had returned on July 06 but had forgotten to stop Plavix. Patient has been off Plavix now for 7 days and returns wishing to proceed. Patient reports still pain in the low back bilaterally posterior gluteus posterior lateral thigh lateral anterior thighs anterior medial thighs essentially right equal to left but mostly across the back patient describes the pain is aching and dull sharp at times but worse with walking standing changing positions also some shooting pain into the legs again less frequently than prior to her first injection. Patient reports her pain is a 2 on scale 10 at all times worst least an average and is a 2 on a scale of 10 today. Patient reports that she is sleeping better at night initially was doing much better with distance walking and doing household activities and try with greater ease and comfort still does not awaken her from sleep. Patient reports no new motor or sensory deficits no new bowel or bladder incontinence or other complaints Physical Exam: VS: Blood pressure is 139/82 pulse 70 respirations 18 temperature 90.2 F height is 4 foot 11 inches weight is 142 pounds PE: PHYSICAL EXAMINATION: GENERAL: The patient is awake, alert, oriented, appropriate, very pleasant demeanor HEENT: Shows normocephalic, atraumatic. Extraocular movements are intact and symmetrical. Patient not wearing any corrective lenses NECK: Shows anterior throat supple without palpable lymphadenopathy noted. Swallow reflex symmetrical. CHEST: Shows normal on inspection. Breath sounds are clear bilaterally, no rales rhonchi or wheezes. HEART: Shows S1, S2 clear. No murmurs auscultated. ABDOMEN: Soft, nontender, nondistended, obese. No palpable organomegaly is noted. No rebound or guarding demonstrated. BACK: Shows spine grossly in the midline. Normal-appearing cervical lordotic curvature. There is slightly increased thoracic kyphosis, some minor flattening of the lumbar lordotic curvature. Lumbar paraspinous muscles show symmetrical on inspection, on palpation shows some moderate tenderness diffusely throughout the upper, middle and lower distribution of the paraspinous muscles bilaterally, but without specific trigger points, without radiation of pain. The patient has good rotational motion of the lumbar spine, both laterally as well as extension and flexion without significant difficulty. No tenderness over the spinous processes, sacrum or sacroiliac regions. EXTREMITIES: Lower extremities show deep tendon reflexes 1+ in the patellar and tendo calcaneus tendons. Motor exam is 5 on a scale of 5 with right dorsiflexion, extension, quadriceps and hamstring flexion and 5/5 on the left. Peripheral pulses are 1+ posterior tibial. No peripheral edema is noted bilaterally. Lower extremities are warm and dry to touch, equal in appearance. SKIN: Shows warm and dry, good turgor. No edema. No sores, rashes or bruising throughout. Procedure: Procedure: Options were discussed with the patient. Patient's old chart was reviewed as h er current medication regimen updated current review of systems updated today as well. We will proceed with a second in the series lumbar epidural steroid injection today with fluoroscopic guidance. Risks were discussed including but not limited to: Bleeding, infection, possibility of epidural hematoma and subsequent neurological compromise, dural puncture, headaches, spinal cord and/or nerve damage, side effects of steroid medication, and poor results regarding pain control. Patient understands wished to proceed. Patient will return to clinic in approximately 2 weeks for follow-up was counseled as to return appointment activity level and side effects to be aware of. Medication Injected: Med Injected: Procedure is lumbar epidural steroid injection under local anesthetic using sterile prep and drape at the L4-5 level using C-arm fluoroscopic guidance in both AP and lateral views medications injected is 120 mg Depo-Medrol + 10 mL preservative-free normal saline- condition at discharge is stable patient tolerated procedure well had no complications. Condition at Discharge: Condition at Discharge: Condition at discharge is stable patient tolerated procedure well and had no complications. DOLORES KEEN MD Jul 14, 2020 14:57
== END ==
LOC: PNCL 13:48
PROVIDERS: ATTEND Anesthesiology
DX: M51.16 Intervertebral disc disorders with radiculopathy, lumbar region (principal); M48.061 Spinal stenosis, lumbar region without neurogenic claudication; E78.5 Hyperlipidemia, unspecified; I13.0 Hypertensive heart and chronic kidney disease with heart failure and stage 1 through stage 4 chronic kidney disease, or unspecified chronic kidney disease; I50.9 Heart failure, unspecified; N18.9 Chronic kidney disease, unspecified; E11.22 Type 2 diabetes mellitus with diabetic chronic kidney disease; Z88.5 Allergy status to narcotic agent; Z88.8 Allergy status to other drugs, medicaments and biological substances; Z79.84 Long term (current) use of oral hypoglycemic drugs; Z98.890 Other specified postprocedural states; Z79.899 Other long term (current) drug therapy
CPT/HCPCS: 62323; J1030; J1040; Q9965

== ENCOUNTER → 2020-08-04 | Outpatient (CLI) | payer MEDICARE, BC ==
--- NOTE | 2020-08-04 14:27 | PDOC ---
Progress Note - Pain Clinic Date of Service: DOS: DATE: 08/04/20 TIME: 14:24 Diagnosis: Dx: Lumbar radiculopathy with lumbar degenerative disc disease and lumbar spinal stenosis Myofascial pain History or Present Illness: HPI: 84-year-old female returns for follow-up status post lumbar epidurals injections x2. Reports about 50% improvement overall after the last injection with good reduction in pain in the low back itself. Patient reports has been increased activity to greater ease and comfort walking greater distances doing household activities greater ease and comfort and try with greater ease and comfort as well. Patient reports that wakens her very rarely from sleep and usually sleeps about 6 hours at a time patient reports the pain is a 2 on a scale of 10 at all times average worst and least is a 2 today. Patient scribes pain is aching and dull in the low back itself again worse with activity walking standing or bending. No new motor or sensory deficits noted no new bowel or bladder incontinence. Physical Exam: VS: Blood pressure is 130/58 pulse 65 respirations 16 temperature 97.5 F weight is 141 pounds PE: PHYSICAL EXAMINATION: GENERAL: The patient is awake, alert, oriented, appropriate, very pleasant demea nor HEENT: Shows normocephalic, atraumatic. Extraocular movements are intact and symmetrical. Oral cavity: Mucous membranes moist and pink. NECK: Shows anterior throat supple without palpable lymphadenopathy noted. Swallow reflex symmetrical. CHEST: Shows normal on inspection. Breath sounds are distant but clear bilaterally, no rales rhonchi or wheezes. HEART: Shows S1, S2 clear. No murmurs auscultated. ABDOMEN: Soft, nontender, nondistended obese. No palpable organomegaly is noted. No rebound or guarding demonstrated. BACK: Shows spine grossly in the midline. Normal-appearing cervical lordotic curvature. There is slightly increased thoracic kyphosis, some minor flattening of the lumbar lordotic curvature. Lumbar paraspinous muscles show symmetrical on inspection, on palpation shows some moderate tenderness diffusely throughout the upper, middle and lower distribution of the paraspinous muscles bilaterally without trigger points, without radiation of pain. The patient has good rotational motion of the lumbar spine, both laterally as well as extension and flexion without significant difficulty. No tenderness over the spinous processes, sacrum or sacroiliac regions. EXTREMITIES: Lower extremities show deep tendon reflexes 1+ in the patellar and tendo calcaneus tendons. Motor exam is 5 on a scale of 5 with right dorsiflexion, extension, quadriceps and hamstring flexion and 5/5 on the left. Peripheral pulses are 1+ posterior tibial. No peripheral edema is noted bilaterally. Lower extremities are warm and dry to touch, equal in color and appearance. SKIN: Shows warm and dry, good turgor. No edema. No sores, rashes or bruising. Procedure: Procedure: Options were discussed with the patient. Patient chart was reviewed as her current medication regimen updated current review of systems updated today as well. We will proceed with a third in the series lumbar epidural steroid injection today with fluoroscopic guidance. Risks were discussed including but not limited to: Bleeding, infection, possibility of epidural hematoma and subsequent neurological compromise, dural puncture, headaches, spinal cord and/or nerve damage, side effects of steroid medication, and poor results regarding pain control. Patient understands wished to proceed. Patient return to clinic in approximate 2 weeks for follow-up was counseled as to return appointment activity level, and side effects to be aware of. Medication Injected: Med Injected: Procedure is lumbar epidural steroid injection under local anesthetic using sterile prep and drape at the L4-5 level using C-arm fluoroscopic guidance in both AP and lateral views medications injected is 120 mg Depo-Medrol + 10 mL preservative-free normal saline and 2 mL contrast- condition at discharge is stable patient tolerated procedure well had no complications. Condition at Discharge: Condition at Discharge: Condition at discharge is stable, patient tolerated the procedure well and had no complications. DOLORES KEEN MD Aug 04, 2020 14:27
== END | disposition home or self-care (01) ==
LOC: PNCL 13:54
PROVIDERS: ATTEND Anesthesiology
DX: M51.16 Intervertebral disc disorders with radiculopathy, lumbar region (principal); M48.061 Spinal stenosis, lumbar region without neurogenic claudication; M79.18 Myalgia, other site; I50.9 Heart failure, unspecified; E11.9 Type 2 diabetes mellitus without complications; E78.00 Pure hypercholesterolemia, unspecified; G47.30 Sleep apnea, unspecified; Z79.899 Other long term (current) drug therapy; Z98.890 Other specified postprocedural states; Z88.5 Allergy status to narcotic agent; Z88.8 Allergy status to other drugs, medicaments and biological substances; Z91.041 Radiographic dye allergy status
CPT/HCPCS: 62323; J1030; J1040; Q9965

== ENCOUNTER → 2020-11-25 | Outpatient (CLI) | payer MEDICARE, BC ==
[~2020-11-25] MED LIST changes: -IOHEXOL 180 MG/ML 10 ML VIAL. ONE; -ISOS30TA4 PO; +ISOS30TA68 PO; +REGADENOSON 0.4 MG/5 ML DISP.SYRIN. IV ONE; -methylPREDNISolone ACETATE 40 MG/ML VIAL. ONE; -methylPREDNISolone ACETATE 80 MG/ML VIAL. ONE
--- NOTE | 2020-11-25 13:39 | RAD ---
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 Informed consent was witnessed. Ata eout was entered into [employer]. History and Stress Test performed by RT Aleksandar Rao) (N) Pharm. Details Pharmacologic stress testing was performed using 0.4mg per 5ml of regadenoson given intravenously ove r 7-10 seconds. Stress Symptoms Dyspnea, headache POST EXERCISE Reason for Termination: Infusion complete Max HR: 97 bpm Max Blood Pressure: 163/63mmHg Blood Pressure response to exercise: Normal blood pressure response during stress. Heart Rate response to exercise: normal response Chest Pain: No. Arrhythmia: No. ST Change: No. INTERPRETATION Stress EKG Conclusion: Baseline EKG showed sinus rhythm, first-degree AV block and intraventricular c onduction delay. Nondiagnostic changes at peak stress. No arrhythmias. Imaging Protocol IMAGE PROTOCOL: Rest Tc-99m/stress Tc-99m 1 day Rest: Stress: Viability: Radiopharm.Tc99m [id number] Sestamibi Dose10.5mCi 32mCi Duration 15min. 15min. Img Date 11/25/2020 11/25/2020 Inj-Img Hvrr98ihr. 60min. Rest Admin Site:IV - Right AntecubitalAdministrator:JOHN Cazares, ARRT (R)(N) Stress Admin Site: IV - Right AntecubitalAdministrator: Phuc Lieberman, RT (R)(N) STRESS DATA End Diast. Vol.184.0mlAv. Heart Rate69.0bpm End Syst. Vol.73.0mlCO Index BSA0.0L/min Myocardial Mlhv068.0gEject. Jadrunxv23.0% Stress Rates Pk. Fill Rate2.27EDV/secLVtime Pk. Fill 155.77msec Pk. Empty Rate2.51ESV/secLVtime Pk. Qlvxq261.17msec 1/3 Pk. Fill1.38EDV/sec Stress Scores Regional WT0.00Summed WT6.00 Regional WM0.00Summed WM5.00 LV Perfusion Scintigraphic images showed small to moderate fixed defect involving the anteroapical wall consistent with previous myocardial infarction without any significant reversibility. Wall Motion Abnormal septal wall motion probably secondary to postoperative state. The ejection fraction was armin culated at 59%. LV Perf. Quant 17 Seg. SSS9.00 17 Seg. SRS23.00 17 Seg. SDS0.00 Stress Defect Extent (% LAD)32.50Rest Defect Extent (% LAD)43.10Rev. Defect Extent (% LAD)0.00 Stress Defect Extent (% LCX) 28.80Rest Defect Extent (% LCX)61.30Rev. Defect Extent (% LCX)0.00 Stress Defect Extent (% RCA)0.00Rest Defect Extent (% RCA)47.80Rev. Defect Extent (% RCA)0.00 Stress Defect Extent (% GONZALEZ)22.40Rest Defect Extent (% GONZALEZ)50.70Rev. Defect Extent (% GONZALEZ)0.00 Conclusion 1. Regadenoson cardioisotope stress test showed small to moderate anteroapical wall infarct without a ny significant ischemia. 2. Abnormal septal wall motion probably secondary to postoperative state. The ejection fraction was calculated at 59%. 3. Low risk for cardiac events. Signed by : Esdras Huggins, Electronically Approved : 11/25/2020 13:38:41
--- NOTE | 2020-11-25 13:42 | CARD ---
MR#: [id number] Date of Study: 11/25/2020 Ordering Physician: ESDRAS HUGGINS, Referring Physician: ESDRAS HUGGINS, Tech: America Kaur HUEY APPROVED REPORT EXAM: Two-dimensional and M-mode echocardiogram with Doppler and color Doppler. Other Information Quality : Good INDICATION Cardiac Disease: CAD Surgery/Intervention Pacemaker: Date: 2003 CABG: Date: 1986 2D DIMENSIONS RVDd2.8 (2.9-3.5cm)Left Atrium(2D)4.7 (1.6-4.0cm) IVSd0.8 (0.7-1.1cm)Aortic Root(2D)3.3 (2.0-3.7cm) LVDd5.5 (3.9-5.9cm)LVOT Diameter2.0 (1.8-2.4cm) PWd0.9 (0.7-1.1cm)LVDs5.5 (2.5-4.0cm) FS (%) 20.0 %SV0.3 ml LVEF(%)40.0 (>50%) Aortic Valve AoV Peak Kyree.141.0cm/sAoV VTI28.4cm AO Peak GR.7.9mmHgLVOT Peak Kyree.92.3cm/s LVOT VTI 19.94cmAO Mean GR.4mmHg JEROD (VMAX)2.65us4QXE (VTI)2.22cm2 AI P 1/2 Znlp236zf Mitral Valve MV E Hvxgevid956.2cm/sMV E Peak Gr.152mmHg MV DECEL [id number] A Mozetjhz954.9cm/s MV IUI17ofF/A Ratio1.0 MVA (PHT)6.81cm2 TDI E/Lateral E'13.5E/Medial E'25.3 Tricuspid Valve TR P. Gnqydefg276lw/sRAP ASXLGFBK2vdCu TR Peak Gr.29lhScULCI43mlDt Pulmonary Vein S1 Mphqoqjd81.7cm/sD2 Xnvdsuzs70.0cm/s LEFT VENTRICLE The left ventricle is normal size. There is normal left ventricular wall thickness. Abnormal septal w all motion probably secondary to postoperative state. The ejection fraction is estimated at 45 to 50% . Transmitral Doppler flow pattern is Grade II-pseudonormal filling dynamics. RIGHT VENTRICLE The right ventricle is normal size. The right ventricular systolic function is normal. There is a pac emaker lead in the right ventricle. ATRIA The left atrium is mildly dilated. The right atrium size is normal. A pacemaker is seen in the right atrium consistent with history. The interatrial septum is intact with no evidence for an atrial septa l defect or patent foramen ovale as noted on 2-D or Doppler imaging. AORTIC VALVE The aortic valve is calcified but opens well. Doppler and Color Flow revealed mild to moderate aortic regurgitation. There is no significant aortic valvular stenosis. MITRAL VALVE The mitral valve is calcified but opens well. Mitral annular calcification is mild. There is no evide nce of mitral valve prolapse. There is no mitral valve stenosis. Doppler and Color-flow revealed mode rate mitral regurgitation. TRICUSPID VALVE The tricuspid valve is normal in structure and function. Doppler and Color Flow revealed mild tricusp id regurgitation. There is moderate-severe pulmonary hypertension. The PA pressure was estimated at 6 8 mmHg. There is no tricuspid valve stenosis. PULMONIC VALVE The pulmonic valve is not well visualized. Doppler and Color Flow revealed mild pulmonic valvular reg urgitation. There is no pulmonic valvular stenosis. GREAT VESSELS The aortic root is normal in size. The ascending aorta is normal in size. The IVC is normal in size a nd collapses >50% with inspiration. PERICARDIAL EFFUSION There is no evidence of significant pericardial effusion. Critical Notification Critical Value: No <Conclusion> Abnormal septal wall motion probably secondary to postoperative state. The ejection fraction is estimated at 45 to 50%. Transmitral Doppler flow pattern is Grade II-pseudonormal filling dynamics. Pacer/ICD lead noted RA/RV. Mild to moderate aortic regurgitation. Moderate mitral regurgitation. Mild tricuspid regurgitation. There is moderate-severe pulmonary hypertension. The PA pressure was estimated at 68 mmHg. There is no evidence of significant pericardial effusion. Signed by : Esdras Huggins, Electronically Approved : 11/25/2020 13:42:20
== END ==
LOC: NM 09:13
PROVIDERS: ATTEND Internal Medicine Cardiovascular Disease
DX: I08.8 Other rheumatic multiple valve diseases (principal); I25.10 Atherosclerotic heart disease of native coronary artery without angina pectoris; I10 Essential (primary) hypertension
CPT/HCPCS: 78452; 93017; 93306; A9500; J2785

== ENCOUNTER → 2021-01-05 | Outpatient (CLI) | payer MEDICARE, BC ==
[~2021-01-05] MED LIST changes: -REGADENOSON 0.4 MG/5 ML DISP.SYRIN. IV ONE; +methylPREDNISolone ACETATE 40 MG/ML VIAL. ONE; +methylPREDNISolone ACETATE 80 MG/ML VIAL. ONE
--- NOTE | 2021-01-05 13:42 | PDOC4 ---
PROCEDURE Procedure Patient was consented for lumbar epidural steroid injection. Risks were dis cussed including but not limited to: Bleeding, infection, possibility of epidural hematoma and subsequent neurological compromise, dural puncture, headaches, spinal cord and/or nerve damage, side effects of steroid medication, and poor results regarding pain control. Patient understands and wished to proceed. Procedure is lumbar epidural steroid injection under local anesthetic using sterile prep and drape at the L4-5 level using C-arm fluoroscopic guidance in both AP and lateral views medications injected is 120 mg Depo-Medrol + 10 mL preservative-free normal saline and 2 mL contrast- condition at discharge is stable patient tolerated procedure well had no complications. DOLORES KEEN MD Jan 05, 2021 13:42
--- NOTE | 2021-01-05 13:42 | PDOC ---
Progress Note - Pain Clinic Date of Service: DOS: DATE: 01/05/21 TIME: 13:38 Diagnosis: Dx: Lumbar radiculopathy with lumbar degenerative disc disease and lumbar spinal stenosis Myofascial pain History or Present Illness: HPI: 85-year-old female returns for follow-up status post lumbar epidural steroid injection most recently August 04, 2020. Patient did very well with about a 50% improvement in her pain in her low back and bilateral lower extremities. Patient reports that for the past few months pain is returned in the low back and bilateral lower extremities mostly the posterior gluteus posterior lateral thighs anterior thighs and hips and medial thighs as well patient reports is an 8 on scale 10 is worst over the past week and 8 on average 6 on its least and is an 8 today. Patient scribes pain aching dull and sharp sometimes shooting ache cramping and radiating in the legs and can be severe constant with walking. Patient reports initially he was doing much better with walking standing doing household activities travel with greater ease and comfort patient reports still better with sitting or laying down does not generally awaken her from sleep at night. Patient has held her Plavix now for the past 10 days. Patient reports no new motor or sensory deficits no new bowel or bladder incontinence, or other complaints. Physical Exam: VS: Blood pressure is 131/72 pulse 69 respirations 18 temperature 98.3 F weight 138 pounds PE: PHYSICAL EXAMINATION: GENERAL: The patient is awake, alert, oriented, appropriate, very pleasant demeanor HEENT: Shows normocephalic, atraumatic. Extraocular movements are intact and symmetrical. Oral cavity: Mucous membranes moist and pink. NECK: Shows anterior throat supple without palpable lymphadenopathy noted. Swallow reflex symmetrical. CHEST: Shows normal on inspection. Breath sounds are clear bilaterally, distant but no rales or rhonchi. HEART: Shows S1, S2 clear. No murmurs auscultated. ABDOMEN: Soft, nontender, nondistended, obese. No palpable organomegaly is noted. BACK: Shows spine grossly in the midline. Normal-appearing cervical lordotic curvature. There is slightly increased thoracic kyphosis, some minor flattening of the lumbar lordotic curvature. Lumbar paraspinous muscles show symmetrical on inspection, on palpation shows some moderate tenderness diffusely throughout the upper, middle and lower distribution of the paraspinous muscles, but without specific trigger points, without radiation of pain. The patient has good rotational motion of the lumbar spine, both laterally as well as extension and flexion without significant difficulty. Patient has mild tenderness over the left posterior superior iliac spine but without radiation right side is nontender. EXTREMITIES: Lower extremities show deep tendon reflexes 1+ in the patellar and tendo calcaneus tendons. Motor exam is 5 on a scale of 5 with right dorsiflexion, extension, quadriceps and hamstring flexion and 5/5 on the left. Peripheral pulses are 1+ posterior tibial. No peripheral edema is noted bilaterally. Lower extremities are warm and dry to touch, equal in color and appearance. SKIN: Shows warm and dry, good turgor. No edema. No sores, rashes or bruising throughout. Procedure: Procedure: Options were discussed with the patient. Patient chart reviews her current medication regimen updated current review of systems updated today as well. We will proceed with a lumbar epidural steroid injection today with fluoroscopic guidance. Risks were discussed including but not limited to: Bleeding, infection, possibility of epidural hematoma and subsequent neurological compromise, dural puncture, headaches, spinal cord and/or nerve damage, side effects of steroid medication, and poor results regarding pain control. Patient understands and wished to proceed. Patient will return to the clinic in approximate 2 weeks for follow-up, was counseled as return appointment activity level and side effects to be aware of. Medication Injected: Med Injected: Procedure is lumbar epidural steroid injection under local anesthetic using sterile prep and drape at the L4-5 level using C-arm fluoroscopic guidance in both AP and lateral views medications injected is 120 mg Depo-Medrol + 10 mL preservative-free normal saline and 2 mL contrast- condition at discharge is stable patient tolerated procedure well had no complications. Condition at Discharge: Condition at Discharge: Condition at discharge stable, patient tolerated the procedure well and had no complications. DOLORES KEEN MD Jan 05, 2021 13:42
== END | disposition home or self-care (01) ==
LOC: PNCL 13:11
PROVIDERS: ATTEND Anesthesiology
DX: M51.16 Intervertebral disc disorders with radiculopathy, lumbar region (principal); M48.061 Spinal stenosis, lumbar region without neurogenic claudication; M79.18 Myalgia, other site; I50.9 Heart failure, unspecified; E78.00 Pure hypercholesterolemia, unspecified; E11.9 Type 2 diabetes mellitus without complications; J44.9 Chronic obstructive pulmonary disease, unspecified; G47.30 Sleep apnea, unspecified; Z79.899 Other long term (current) drug therapy; Z72.89 Other problems related to lifestyle; Z88.5 Allergy status to narcotic agent; Z88.8 Allergy status to other drugs, medicaments and biological substances; Z91.041 Radiographic dye allergy status
CPT/HCPCS: 62323; J1030; J1040

== ENCOUNTER → 2021-01-26 | Outpatient (CLI) | payer MEDICARE, BC ==
[~2021-01-26] MED LIST changes: +IOHEXOL 180 MG/ML 10 ML VIAL. ONE
--- NOTE | 2021-01-26 13:57 | PDOC ---
Progress Note - Pain Clinic Date of Service: DOS: DATE: 01/26/21 TIME: 13:55 Diagnosis: Dx: Lumbar radiculopathy with lumbar degenerative disease and lumbar spinal stenosis Myofascial pain History or Present Illness: HPI: 85-year-old female returns for follow-up status post lumbar epidural steroid injection x1. Patient reports about 80% improvement after the last injection pain returning now in the low back and bilateral lower extremities posterior gluteus posterior lateral thighs anterior thighs medial thighs worse with w alking standing and across the low back right essentially equal to left at this time patient reports is aching and dull shooting in the legs at times worse with standing walking better with sitting or laying down generally does not awaken her from sleep at night. Patient reports is a 7 on scale 10 is worse over the past week for an average 3 its least is a 3 today. Patient describes her pain as aching and dull tight and shooting at times. Patient reports no new motor or sensory deficits no new bowel or bladder incontinence or other complaints. Physical Exam: VS: Blood pressure is 145/73 pulse 70 respirations 18 temperature is 98.5 F height is 4 feet 11 inches weight is 136 pounds PE: PHYSICAL EXAMINATION: GENERAL: The patient is awake, alert, oriented, appropriate, very pleasant demeanor HEENT: Shows normocephalic, atraumatic. Extraocular movements are intact and symmetrical. Oral cavity: Mucous membranes moist and pink. NECK: Shows anterior throat supple without palpable lymphadenopathy noted. Swallow reflex symmetrical. CHEST: Shows normal on inspection. Breath sounds are clear bilaterally, distant but no rales or rhonchi. HEART: Shows S1, S2 clear. No murmurs auscultated. ABDOMEN: Soft, nontender, nondistended, obese. No palpable organomegaly is noted. No rebound or guarding demonstrated. BACK: Shows spine grossly in the midline. Normal-appearing cervical lordotic curvature. There is slightly increased thoracic kyphosis, some minor flattening of the lumbar lordotic curvature. Lumbar paraspinous muscles show symmetrical on inspection, on palpation shows some moderate tenderness diffusely throughout the upper, middle and lower distribution of the paraspinous muscles without specific trigger points, without radiation of pain. The patient has good rotational motion of the lumbar spine, both laterally as well as extension and flexion without significant difficulty. EXTREMITIES: Lower extremities show deep tendon reflexes 1+ in the patellar and tendo calcaneus tendons. Motor exam is 5 on a scale of 5 with right dorsiflexion, extension, quadriceps and hamstring flexion and 5/5 on the left. Peripheral pulses are 1+ posterior tibial. No peripheral edema is noted bilaterally. Lower extremities are warm and dry. SKIN: Shows warm and dry, good turgor. No edema. No sores, rashes or bruising throughout. Procedure: Procedure: Options discussed with the patient. Patient chart was reviewed as her current medication regimen updated current review of systems updated today as well. We will proceed with a second in the series lumbar epidural steroid injection stable fluoroscopic guidance. Risks were discussed including but not limited to: Bleeding, infection, possibility of epidural hematoma and subsequent neurological compromise, dural puncture, headaches, spinal cord and/or nerve damage, side effects of steroid medication, and poor results regarding pain control. Patient understands and wished to proceed. Patient will return to the clinic in approximately 2 weeks for follow-up, was counseled as return appointment activity level and side effects to be aware of. Medication Injected: Med Injected: Procedure is lumbar epidural steroid injection under local anesthetic using sterile prep and drape at the L4-5 level using C-arm fluoroscopic guidance in both AP and lateral views medications injected is 120 mg Depo-Medrol +10mL preservative-free normal saline and 2 mL contrast- condition at discharge is stable patient tolerated procedure well had no complications. Condition at Discharge: Condition at Discharge: Condition at discharge stable, patient already procedure well and had no complications. DOLORES KEEN MD January 26, 2021 13:57
--- NOTE | 2021-01-26 13:58 | PDOC4 ---
PROCEDURE Procedure Patient was consented for lumbar epidural steroid injection. Risks were dis cussed including but not limited to: Bleeding, infection, possibility of epidural hematoma and subsequent neurological compromise, dural puncture, headaches, spinal cord and/or nerve damage, side effects of steroid medication, and poor results regarding pain control. Patient understands and wished to proceed. Procedure is lumbar epidural steroid injection under local anesthetic using sterile prep and drape at the L4-5 level using C-arm fluoroscopic guidance in both AP and lateral views medications injected is 120 mg Depo-Medrol +10mL preservative-free normal saline and 2 mL contrast- condition at discharge is stable patient tolerated procedure well had no complications. DOLORES KEEN MD January 26, 2021 13:58
== END | disposition home or self-care (01) ==
LOC: PNCL 13:04
PROVIDERS: ATTEND Anesthesiology
DX: M51.16 Intervertebral disc disorders with radiculopathy, lumbar region (principal); M48.061 Spinal stenosis, lumbar region without neurogenic claudication; M79.18 Myalgia, other site; I50.9 Heart failure, unspecified; G47.30 Sleep apnea, unspecified; E11.9 Type 2 diabetes mellitus without complications; Z79.899 Other long term (current) drug therapy; Z98.890 Other specified postprocedural states; Z72.89 Other problems related to lifestyle; Z88.1 Allergy status to other antibiotic agents; Z88.8 Allergy status to other drugs, medicaments and biological substances
CPT/HCPCS: 62323; J1030; J1040; Q9965

== ENCOUNTER 2021-03-03 16:12 | Inpatient (IN) | payer MEDICARE, BC ==
[~2021-03-03] VITALS: Ht 149.9 cm; Wt 60.5 kg
[~2021-03-03 16:12] MED LIST changes: -IOHEXOL 180 MG/ML 10 ML VIAL. ONE; -methylPREDNISolone ACETATE 40 MG/ML VIAL. ONE; -methylPREDNISolone ACETATE 80 MG/ML VIAL. ONE
[2021-03-03] MEDS ORDERED: fentaNYL PF VIAL 100 MCG/2 ML VIAL IVP ONE (17:15)
[2021-03-03] MEDS ORDERED: IV NORMAL SALINE 500ML BAG 500 ML IV ONE (17:15)
[2021-03-03] MEDS ORDERED: ONDANSETRON PF 4 MG/2 ML VIAL. IVP ONE (17:15)
--- NOTE | 2021-03-03 17:15 | ED.ADGEN ---
Past Medical History Past Medical History: CAD, Diabetes-Type II, High Cholesterol, Hypertension Additional Past Medical Histor: PPM, bells palsy Past Surgical History: Pacemaker Additional Past Surgical Histo: cabg Smoking Status: Never Smoker Alcohol Use: Rarely Drug Use: None General Adult EDM: Chief Complaint: ABDOMINAL PAIN HPI: HPI: Patient is a 85 year old female coming in for generalized sharp abdominal pain. States the pain is worse with movement and gets better, 2-3 out of 10 while laying still. At worst it is about 8 out of 10. Patient states she has had some nausea, decreased p.o. intake as well. Patient states she had 2 loose chandra wel months afternoon, denies any diarrhea or constipation. No changes in urination. Denies any fever or chills. History of diabetes, hypertension, coronary disease. No past surgical history Review of Systems: Review of Systems: All other systems within normal limits except for as noted in the HPI Current Medications: Current Medications Medications (Trade) Dose Ordered Sig/Evgeny Start Time Stop Time Status Last Admin Dose Admin Fentanyl Citrate (Fentanyl 2ml Vial) 75 mcg 1X ONCE 03/03/21 17:15 03/03/21 17:16 DC 03/03/21 17:28 75 MCG Ondansetron HCl (Zofran) 4 mg 1X ONCE 03/03/21 17:15 03/03/21 17:16 DC 03/03/21 17:27 4 MG Sodium Chloride 500 ml @ 500 mls/hr 1X ONCE 03/03/21 17:15 03/03/21 18:14 DC 03/03/21 17:15 500 MLS/HR Allergies: Allergies: Allergies Coded Allergies Type Severity Reaction Last Updated Verified codeine Allergy Intermediate 06/08/19 Yes iodine Allergy Intermediate Rash 06/08/19 Yes rosuvastatin Allergy Intermediate 06/08/19 Yes ezetimibe Adverse Reaction Intermediate 06/08/19 Yes rosiglitazone Adverse Reaction Intermediate Nausea and Vomiting 06/08/19 Yes Physical Exam: PE: Constitutional: Well developed, well nourished, no acute distress, non-toxic appearance. [] HENT: Normocephalic, atraumatic, bilateral external ears normal, nose normal. [] Eyes: PERRLA, conjunctiva normal, no discharge. [] Neck: No rigidity, supple, no stridor. [] Cardiovascular: Regular rate and rhythm, brisk cap refill [] Lungs & Thorax: Non labored symmetric respirations, no tachypnea or respiratory distress [] Abdomen: Soft, nondistended, generalized abdominal tenderness with guarding. Skin: Warm, dry, no erythema, no rash. [] Back: Unremarkable Extremities: No deformities, range of motion grossly intact, no lower extremity edema [] Neurologic: Alert and oriented X 3, no focal deficits noted. [] Psychologic: Affect normal, judgement normal, mood normal. [] Current Patient Data: Labs: Laboratory Tests Test 03/03/21 17:00 03/03/21 17:20 Urine Collection Type Unknown Urine Color Yellow Urine Clarity Clear Urine pH 6.5 (<5.0-8.0) Urine Specific [place] 1.010 (1.000-1.030) Urine Protein Negative mg/dL (NEG-TRACE) Urine Glucose (UA) Negative mg/dL (NEG) Urine Ketones (Stick) 15 mg/dL (NEG) Urine Blood Small (NEG) Urine Nitrite Negative (NEG) Urine Bilirubin Negative (NEG) Urine Urobilinogen Dipstick 0.2 mg/dL (0.2 mg/dL) Urine Leukocyte Esterase Trace (NEG) Urine RBC 1-2 /HPF (0-2) Urine WBC 1-4 /HPF (0-4) Urine Squamous Epithelial Cells Few /LPF Urine Bacteria Few /HPF (0-FEW) White Blood Count 7.3 x10^3/uL (4.0-11.0) Red Blood Count 4.89 x10^6/uL (3.50-5.40) Hemoglobin 14.9 g/dL (12.0-15.5) Hematocrit 42.7 % (36.0-47.0) Mean Corpuscular Volume 87 fL (79-100) Mean Corpuscular Hemoglobin 31 pg (25-35) Mean Corpuscular Hemoglobin Concent 35 g/dL (31-37) Red Cell Distribution Width 14.4 % (11.5-14.5) Platelet Count 170 x10^3/uL (140-400) Neutrophils (%) (Auto) 62 % (31-73) Lymphocytes (%) (Auto) 26 % (24-48) Monocytes (%) (Auto) 11 % (0-9) H Eosinophils (%) (Auto) 1 % (0-3) Basophils (%) (Auto) 1 % (0-3) Neutrophils # (Auto) 4.5 x10^3/uL (1.8-7.7) Lymphocytes # (Auto) 1.9 x10^3/uL (1.0-4.8) Monocytes # (Auto) 0.8 x10^3/uL (0.0-1.1) Eosinophils # (Auto) 0.0 x10^3/uL (0.0-0.7) Basophils # (Auto) 0.1 x10^3/uL (0.0-0.2) Sodium Level 144 mmol/L (136-145) Potassium Level 3.6 mmol/L (3.5-5.1) Chloride Level 101 mmol/L (98-107) Carbon Dioxide Level 32 mmol/L (21-32) Anion Gap 11 (6-14) Blood Urea Nitrogen 10 mg/dL (7-20) Creatinine 0.7 mg/dL (0.6-1.0) Estimated GFR (Cockcroft-Gault) 79.2 BUN/Creatinine Ratio 14 (6-20) Glucose Level 91 mg/dL (70-99) Lactic Acid Level 1.5 mmol/L (0.4-2.0) Calcium Level 10.3 mg/dL (8.5-10.1) H Phosphorus Level 3.5 mg/dL (2.6-4.7) Magnesium Level 1.9 mg/dL (1.8-2.4) Total Bilirubin 1.2 mg/dL (0.2-1.0) H Aspartate Amino Transferase (AST) 31 U/L (15-37) Alanine Aminotransferase (ALT) 27 U/L (14-59) Alkaline Phosphatase 63 U/L (46-116) Troponin I Quantitative 0.060 ng/mL (0.000-0.055) MN-Aie-D-Type Natriuretic Peptide 4250 pg/mL (0-449) H Total Protein 6.4 g/dL (6.4-8.2) Albumin 3.8 g/dL (3.4-5.0) Albumin/Globulin Ratio 1.5 (1.0-1.7) Lipase 68 U/L (73-393) L Laboratory Tests 03/03/21 17:20 Laboratory Tests 03/03/21 17:20 Vital Signs: Vital Signs Date Time Temp Pulse Resp B/P (MAP) Pulse Ox O2 Delivery O2 Flow Rate FiO2 03/03/21 19:20 63 25 146/60 (88) 100 Nasal Cannula 2.0 03/03/21 16:49 98.7 98.7 EKG: EKG: Sinus rhythm, heart rate 76/min, left axis deviation, occasional PVCs. Wide- complex. Left lateral branch block. [] Heart Score: C/O Chest Pain: Yes HEART Score for Chest Pain: HEART Score for Chest Pain Response (Comments) Value History Slighlty/Non-Suspicious 0 ECG Nonspecific Repolarizatio 1 Age > 65 2 Risk Factors >3 Risk Factors or Hx CAD 2 Troponin >1-<3x Normal Limit 1 Total 6 Risk Factors: Risk Factors: DM, Current or recent (<one month) smoker, HTN, HLP, family history of CAD, obesity. Risk Scores: Score 0 - 3: 2.5% MACE over next 6 weeks - Discharge Home Score 4 - 6: 20.3% MACE over next 6 weeks - Admit for Clinical Observation Score 7 - 10: 72.7% MACE over next 6 weeks - Early Invasive Strategies Radiology/Procedures: Radiology/Procedures: IMAGING REPORT Signed PATIENT: DUANE LENZ ACCOUNT: [id number] : 1935 LOCATION: ER AGE: 85 SEX: F EXAM STATUS: PRE ER ORD. PHYSICIAN: MOIRA RIDLEY MD REASON: generalized abd pain PROCEDURE: CT ABDOMEN PELVIS WO CONTRAST Exam: CT of abdomen and pelvis without contrast INDICATION: Generalized abdominal pain TECHNIQUE: Sequential axial images through the abdomen and pelvis obtained without IV contrast. Sagittal and coronal reformatted images were reconstructed from the axial data and reviewed. Exposure: One or more of the following in the visualized dose reduction techniques were utilized for this examination: 1. Automated exposure control 2. Adjustment of the MA and/or KV according to patient size 3. Use of iterative of reconstructive technique Comparisons: 02/04/2019 FINDINGS: Heart is mildly enlarged. Pacer leads noted in the heart. No pericardial effusion. Visualized lung bases are clear. No pleural effusion. Evaluation of the solid organs limited secondary to noncontrast technique. Numerous calcified granulomata are noted in the liver and spleen. Pancreas and adrenals are unremarkable. Gallstones noted within the gallbladder. No perinephric inflammation or hydronephrosis. No renal or ureteral calculi Bladder is decompressed not well evaluated. Uterus is nonenlarged. There is a cystic lesion at the left adnexa which measures 2.4 cm in diameter. Diverticulosis noted at the sigmoid colon without evidence of acute diverticulitis. Some of the lower small bowel loops are minimally distended with air without evidence of obstruction. Pulmonary free fluid noted in the pelvis. There is a infrarenal abdominal aortic aneurysm which measures 3.6 cm in diameter. No enlarged intra-abdominal lymph nodes are identified. No suspicious osseous lesions or acute fractures. IMPRESSION: 1. Cholelithiasis and contracted gallbladder. 2. Diverticulosis without evidence of acute diverticulitis. 3. Infrarenal abdominal aortic aneurysm measuring up to 3.6 cm in diameter. 4. Cystic lesion at the left adnexa measuring up to 0.4 cm, favored represent cyst in the left ovary. This is incompletely characterized on CT. Electronically signed by: Elvin Martinez MD (03/03/2021 6:22 PM) [facility] Signed PATIENT: DUANE LENZ ACCOUNT: [id number] : 1935 LOCATION: ER AGE: 85 SEX: F EXAM STATUS: REG ER ORD. PHYSICIAN: SAEED MENDOZA DO REASON: upper abd pressure PROCEDURE: CHEST AP ONLY EXAM: AP View of the chest DATE: 03/03/2021 7:46 PM INDICATION: Reason: upper abd pressure / Spl. Instructions: / History: COMPARISON: 10/01/2019 06/08/2019 FINDINGS: Cardiac generator pack obscures a portion of the left chest with leads in stable position. The heart is not enlarged. Aorta is tortuous atherosclerotic calcifications. Mild elevation left hemidiaphragm. Patchy left lung base airspace opacities. Elevated left hemidiaphragm. No pleural effusion or pneumothorax. IMPRESSION: Patchy opacities left lung base accentuated by elevated left hemidiaphragm, favored to represent atelectasis. Developing consolidation is not entirely excluded. Electronically signed by: Pérez Mcknight MD (03/03/2021 8:30 PM) [facility] DICTATED and SIGNED BY: PÉREZ MCKNIGHT MD DATE: 03/03/[id number] 0 Course & Med Decision Making: Course & Med Decision Making Pertinent Labs and Imaging studies reviewed. (See chart for details) Concern for upper abdominal pain described as "pressure" that has relieved but not fully resolved in ED after analgesia, constant since yesterday. PMH-CAD w/stents, chf w/HFrEF/aicd. Labs with elevated troponin. No ST elevation on EKG. Moderate heart score. Suspect atypical chest pain. Will admit for further medical management. Patient stable at time of admission and agrees with this plan. I have spoken with the patient and/or caregivers-daughter at bedside (patient consents to his/her/their knowledge and involvement in pts' medical care),. I have explained the patient's condition, diagnosis and treatment plan based on the information available to me at this time. I have answered the patient's and/or caregivers questions and answered any concerns. The patient and/or caregivers have as good an understanding of the patient's diagnosis, condition a nd treatment plan as can be expected at this point. The patient has been stabilized within the capability of the emergency department. The patient will be transported for further care and management or will be moved to an observation or inpatient service. I have communicated with the staff or medical practitioner taking over this patient's care. Janet Disclaimer: Janet Disclaimer: This electronic medical record was generated, in whole or in part, using a voice recognition dictation system. Departure Departure Impression: Primary Impression: Atypical chest pain Additional Impression: NSTEMI (non-ST elevated myocardial infarction) Disposition: ADMITTED INPATIENT Admitting Physician: ELIZABETH (Dr. Alberto) Condition: STABLE Referrals: MIMI DON MD (PCP) Problem Qualifiers MOIRA RIDLEY MD Mar 03, 2021 17:15 SAEED MENDOZA DO Mar 03, 2021 19:37
[2021-03-03 17:50] LABS: BASO # 0.1 x10^3/uL (0.0-0.2); BASO % 1 % (0-3); EOS % 1 % (0-3); HEMATOCRIT 42.7 % (36.0-47.0); HEMOGLOBIN 14.9 g/dL (12.0-15.5); LYMPH # 1.9 x10^3/uL (1.0-4.8); LYMPH % 26 % (24-48); MEAN CORPUSCULAR HEMOGLOBIN 31 pg (25-35); MEAN CORPUSCULAR HGB CONC 35 g/dL (31-37); MEAN CORPUSCULAR VOLUME 87 fL (79-100); MONO # 0.8 x10^3/uL (0.0-1.1); MONO % 11 % (0-9); NEUT # 4.5 x10^3/uL (1.8-7.7); NEUT % 62 % (31-73); PLATELET COUNT 170 x10^3/uL (140-400); RED BLOOD COUNT 4.89 x10^6/uL (3.50-5.40); RED CELL DISTRIBUTION WIDTH 14.4 % (11.5-14.5); WHITE BLOOD COUNT 7.3 x10^3/uL (4.0-11.0)
[2021-03-03 17:52] LABS: BILIRUBIN,URINE NEGATIVE (NEG); CLARITY,URINE CLEAR; COLOR,URINE YELLOW; NITRITE,URINE NEGATIVE (NEG); PH,URINE 6.5 (<5.0-8.0); PROTEIN,URINE NEGATIVE (NEG-TRACE); UROBILINOGEN,URINE 0.2 mg/dL (0.2 mg/dL)
[2021-03-03 18:00] LABS: BACTERIA,URINE FEW /HPF (0-FEW)
[2021-03-03 18:02] LABS: CALCIUM 10.3 mg/dL (8.5-10.1); CREATININE 0.7 mg/dL (0.6-1.0); GFR 79.2; POTASSIUM 3.6 mmol/L (3.5-5.1)
[2021-03-03 18:08] LABS: ALBUMIN 3.8 g/dL (3.4-5.0); ALBUMIN/GLOBULIN RATIO 1.5 (1.0-1.7); MAGNESIUM 1.9 mg/dL (1.8-2.4); PHOSPHORUS 3.5 mg/dL (2.6-4.7); TOTAL BILIRUBIN 1.2 mg/dL (0.2-1.0); TOTAL PROTEIN 6.4 g/dL (6.4-8.2)
--- NOTE | 2021-03-03 18:24 | RAD ---
Exam: CT of abdomen and pelvis without contrast INDICATION: Generalized abdominal pain TECHNIQUE: Sequential axial images through the abdomen and pelvis obtained without IV contrast. Sagit pop and coronal reformatted images were reconstructed from the axial data and reviewed. Exposure: One or more of the following in the visualized dose reduction techniques were utilized for this examination: 1. Automated exposure control 2. Adjustment of the MA and/or KV according to patient size 3. Use of iterative of reconstructive technique Comparisons: 02/04/2019 FINDINGS: Heart is mildly enlarged. Pacer leads noted in the heart. No pericardial effusion. Visualized lung ba ses are clear. No pleural effusion. Evaluation of the solid organs limited secondary to noncontrast technique. Numerous calcified granulomata are noted in the liver and spleen. Pancreas and adrenals are unremarka ble. Gallstones noted within the gallbladder. No perinephric inflammation or hydronephrosis. No renal or ureteral calculi Bladder is decompressed not well evaluated. Uterus is nonenlarged. There is a cystic lesion at the le ft adnexa which measures 2.4 cm in diameter. Diverticulosis noted at the sigmoid colon without evidence of acute diverticulitis. Some of the lower small bowel loops are minimally distended with air without evidence of obstruction. Pulmonary free f luid noted in the pelvis. There is a infrarenal abdominal aortic aneurysm which measures 3.6 cm in diameter. No enlarged intra-abdominal lymph nodes are identified. No suspicious osseous lesions or acute fractures. IMPRESSION: 1. Cholelithiasis and contracted gallbladder. 2. Diverticulosis without evidence of acute diverticulitis. 3. Infrarenal abdominal aortic aneurysm measuring up to 3.6 cm in diameter. 4. Cystic lesion at the left adnexa measuring up to 0.4 cm, favored represent cyst in the left ovary . This is incompletely characterized on CT. Electronically signed by: Elvin Martinez MD (03/03/2021 6:22 PM) [facility]
--- NOTE | 2021-03-03 18:51 | EKG ---
[facility] [address] [place] [address] Test Date: 2021-03-03 Test Time: 17:05:22 Pat Name: DUANE LENZ Department: Room: Gender: F Food Production Manager: : 1935 Requested By: MOIRA RIDLEY Order Number: [id number] Reading MD: Abdelrahman Montes De Oca MD Measurements Intervals [place] Rate: 76 P: 90 AL: 324 QRS: -16 QRSD: 160 T: 165 QT: 398 QTc: 452 Interpretive Statements SINUS RHYTHM 1ST DEGREE AVB LBBB PVCS Electronically Signed On 03-04-2021 8:40:04 CDT by Abdelrahman Montes De Oca MD
--- NOTE | 2021-03-03 20:33 | RAD ---
EXAM: AP View of the chest DATE: 03/03/2021 7:46 PM INDICATION: Reason: upper abd pressure / Spl. Instructions: / History: COMPARISON: 10/01/2019 06/08/2019 FINDINGS: Cardiac generator pack obscures a portion of the left chest with leads in stable position. The heart is not enlarged. Aorta is tortuous atherosclerotic calcifications. Mild elevation left dar diaphragm. Patchy left lung base airspace opacities. Elevated left hemidiaphragm. No pleural effusion or pneumothorax. IMPRESSION: Patchy opacities left lung base accentuated by elevated left hemidiaphragm, favored to represent atel ectasis. Developing consolidation is not entirely excluded. Electronically signed by: Pérez Castillo MD (03/03/2021 8:30 PM) [id number]
[2021-03-03] MEDS ORDERED: ONDANSETRON ODT 4 MG TAB.RAPDIS. PO PRN (21:00)
[2021-03-03 22:00] VITALS: BP 192/80
[2021-03-03 22:36] VITALS: BP 155/70
[2021-03-04] MEDS ORDERED: hydrALAZINE 20 MG/ML VIAL. IVP PRN
[2021-03-04] MEDS ORDERED: NITROGLYCERIN SUBLINGUAL 0.4 MG BOTTLE OF 25. SL PRN
[2021-03-04] MEDS ORDERED: MORPHINE SULFATE 4 MG/ML VIAL. IV PRN (00:15)
[2021-03-04 02:41] VITALS: BP 128/60
[2021-03-04 07:00] VITALS: BP 146/62
[2021-03-04] MEDS ORDERED: PANTOPRAZOLE 40 MG TABLET.DR. PO SCH (07:30)
[2021-03-04] MEDS ORDERED: CLOPIDOGREL BISULFATE 75 MG TABLET PO SCH (08:00)
[2021-03-04] MEDS ORDERED: CARVEDILOL 12.5 MG TABLET. PO SCH (08:00)
[2021-03-04] MEDS ORDERED: GLIMEPIRIDE 2 MG TABLET. PO SCH (08:00)
[2021-03-04] MEDS: GABAPENTIN 300 MG CAPSULE. PO SCH ×2 (08:40→11:56)
--- NOTE | 2021-03-04 08:56 | PDOC2 ---
CARDIOLOGY CONSULT NOTE DATE OF SERVICE: DATE: 03/04/21 TIME: 08:54 CHIEF COMPLAINT: Epigastric HPI: Patito is a pleasant 85-year-old woman who comes into the hospital in the setting of abdominal and epigastric discomfort. She states that she was in her usual state of health and began to have some nausea with epigastric discomfort and also had some pain in her upper chest. She had a sensation of different taste and felt concern for cardiac issues and presented to the hospital. Overall, initial evaluation in the ER did not reveal any significant cardiovascular pathology. Her EKG was unremarkable and her troponin was minimally elevated consistent with her history of chronic systolic and diastolic heart failure. At baseline the patient is still working part-time at [employer] in [place] and has not had any significant chest pain or exertional dyspnea over the last several weeks. Since admission to the hospital her abdominal pain is improved. She is actually hungry this morning and is looking forward to eating. Of note, her blood pressure was moderately elevated upon admission and overnight was as high as SBP of 192 and it is unclear if this was related to her nausea and abdominal discomfort or if she has baseline hypertension that is uncontrolled. PMHX: 1. CAD: past CABG. LHC revealed 100% chronic total occlusions of the SVG to RCA/OM but with distal reconstitution from collaterals. 2. ICM: compensated. EF 45% per TTE 3. HTN: controlled, low marginal 4. HLP: intensify statin, May need to add [id number] 5. ENDLESS BELT FINISHER-D in situ 6. DM2 SOCHX: No alcohol, tob or illicits. FAMHX: NC CURRENT MEDS: Furosemide Atorvastatin Coreg Plavix Lasix ALLERGIES: Allergies Coded Allergies Type Severity Reaction Last Updated Verified iodine Allergy Intermediate Rash 06/08/19 Yes codeine Adverse Reaction Intermediate 03/04/21 Yes ezetimibe Adverse Reaction Intermediate 06/08/19 Yes rosiglitazone Adverse Reaction Intermediate Nausea and Vomiting 06/08/19 Yes rosuvastatin Adverse Reaction Intermediate 03/04/21 Yes ROS: Negative for 10/14 systems reviewed unless noted above in HPI PHYSICAL EXAM: Vital Signs/I&O: Vital Signs Date Time Temp Pulse Resp B/P (MAP) Pulse Ox O2 Delivery O2 Flow Rate FiO2 03/04/21 08:41 73 146/62 03/04/21 02:41 97.8 18 96 Nasal Cannula 2.0 97.8 I & O 6/11/21 6/11/21 6/12/21 14:53 22:53 06:53 Intake Total 200 ml Balance 200 ml Physical Exam: GEN.: No apparent distress. Alert and oriented. HEENT: Head is normocephalic, atraumatic NECK: Supple. LUNGS: Clear to auscultation. HEART: RRR, S1, S2 present. +MR murmur /, PVCs ABDOMEN: Soft, nontender. Positive bowel sounds. EXTREMITIES: Without any cyanosis. NEUROLOGIC: Normal speech, normal tone PSYCHIATRIC: Normal affect, normal mood. SKIN: No ulcerations DIAGNOSTIC TESTING: EKG - SR with 1st degree AVB and LBBB Trop peaked at 0.063 Stress 11/2020 - WNL with normal EF and no ischemia. Labs reviewed. ASSESSMENT: 1. Epigastric abdominal pain - Most consistent with GERD. 2. CAD s/p CABG with recent MPI wnl. 3. HTN 4. Dyslipidemia 5. Small AAA noted at 3.6 cm 6. Elevated BNP, suspect chronic systolic HF, based on exam and CXR/CT no significant volume overload. PLAN: 1. Continue home meds. We will confirm her regimen after review of her office notes. 2. No further CV testing needed. Monitor BP, if ok, stable for DC from CV standpoint after 3rd troponin. Supportive care. Pls call with questions. NAEL MOREL MD Mar 04, 2021 08:56
[2021-03-04] MEDS ORDERED: ATORVASTATIN CALCIUM 40 MG TABLET. PO SCH (09:00)
[2021-03-04] MEDS ORDERED: ISOSORBIDE MONONITRATE ER 30 MG TAB.ER.24H PO SCH (09:00)
[2021-03-04] MEDS ORDERED: FUROSEMIDE 40 MG TABLET. PO SCH ×2 (09:00→12:00)
[2021-03-04] MEDS ORDERED: MONTELUKAST SODIUM 10 MG TABLET. PO SCH (10:00)
[2021-03-04] MEDS ORDERED: CETIRIZINE HCL 10 MG TABLET. PO SCH (10:00)
[2021-03-04] MEDS ORDERED: LINAGLIPTIN 5 MG TABLET PO SCH (10:00)
[2021-03-04 11:00] VITALS: BP 113/56
--- NOTE | 2021-03-04 14:42 | DISCH ---
DISCHARGE INSTRUCTIONS Condition on Discharge Condition on Discharge: Stable Activity After Discharge Activity Instructions for Disc: No restrictions, Resume previous activity, Activity as tolerated Bathing Instructions: No Tub Bath until see Lifting Instructions after Dis: No heavy lifting, No pulling or pushing Exercise Instruction after Dis: Progress as tolerated Driving Instructions after Dis: Do not drive today Weight Bearing Status after Di: As tolerated Diet after Discharge Diet after Discharge: Regular, Diabetic No Calorie Level Diet Texture: Regular Liquid Texture: Thin Liquid Wound Incision Care Wound/Incision Care: No wound care needed Checks after Discharge Checks after discharge: Check blood press - daily, Check your Temp as needed Community/Resources/Services Services at Discharge: Oxygen Therapy Contacting the DRCoretta after DC Call your doctor for: If your condition worsens Follow-Up Follow Up With: Primary care provider within 2 weeks Treatment/Equipment after DC Adaptive Equipment Issued: None Discharge Respiratory Equipmen: KATARZYNA Boyle MD Mar 04, 2021 14:42
--- NOTE | 2021-03-04 15:03 | PDOC ---
GENERAL General: Same day summary [id number] VITAL SIGNS Vital Signs/I&O: Vital Signs Date Time Temp Pulse Resp B/P (MAP) Pulse Ox O2 Delivery O2 Flow Rate FiO2 03/04/21 11:00 97.9 63 18 113/56 (75) 95 Nasal Cannula 2.0 97.9 I & O 03/03/21 03/03/21 03/04/21 15:00 23:00 07:00 Intake Total 200 ml Balance 200 ml ALLERGIES Allergies: Allergies Coded Allergies Type Severity Reaction Last Updated Verified iodine Allergy Intermediate Rash 06/08/19 Yes codeine Adverse Reaction Intermediate 03/04/21 Yes ezetimibe Adverse Reaction Intermediate 06/08/19 Yes rosiglitazone Adverse Reaction Intermediate Nausea and Vomiting 06/08/19 Yes rosuvastatin Adverse Reaction Intermediate 03/04/21 Yes MEDS Medications: Current Medications Medications (Trade) Dose Ordered Sig/Evgeny Route PRN Reason Start Time Stop Time Status Last Admin Dose Admin Sodium Chloride 500 ml @ 500 mls/hr 1X ONCE IV 03/03/21 17:15 03/03/21 18:14 DC 03/03/21 17:15 Ondansetron HCl (Zofran) 4 mg 1X ONCE IVP 03/03/21 17:15 03/03/21 17:16 DC 03/03/21 17:27 Fentanyl Citrate (Fentanyl 2ml Vial) 75 mcg 1X ONCE IVP 03/03/21 17:15 03/03/21 17:16 DC 03/03/21 17:28 Atorvastatin Calcium (Lipitor) 80 mg DAILY PO 03/04/21 09:00 03/04/21 08:40 Clopidogrel Bisulfate (Plavix) 75 mg DAILY08 PO 03/04/21 08:00 03/04/21 08:39 Furosemide (Lasix) 40 mg DAILY@1200 PO 03/04/21 12:00 03/04/21 11:59 Furosemide (Lasix) 80 mg DAILY PO 03/04/21 09:00 03/04/21 08:40 Gabapentin (Neurontin) 300 mg BIDWBKFT/CHICO PO 03/04/21 08:00 03/04/21 11:56 Isosorbide Mononitrate (Imdur) 30 mg DAILY PO 03/04/21 09:00 03/04/21 08:41 Pantoprazole Sodium (Protonix) 40 mg DAILYAC PO 03/04/21 07:30 03/04/21 08:40 Carvedilol (Coreg) 12.5 mg BIDWMEALS PO 03/04/21 08:00 03/04/21 08:41 Glimepiride (Amaryl) 8 mg DAILY08 PO 03/04/21 08:00 03/04/21 08:40 Cetirizine HCl (ZyrTEC) 10 mg DAILY PO 03/04/21 10:00 03/04/21 09:53 Montelukast Sodium (Singulair) 10 mg DAILY PO 03/04/21 10:00 03/04/21 09:53 LAB Lab: Laboratory Tests Test 03/03/21 17:00 03/03/21 17:20 03/04/21 06:35 03/04/21 09:20 Urine Collection Type Unknown Urine Color Yellow Urine Clarity Clear Urine pH 6.5 (<5.0-8.0) Urine Specific [place] 1.010 (1.000-1.030) Urine Protein Negative mg/dL (NEG-TRACE) Urine Glucose (UA) Negative mg/dL (NEG) Urine Ketones (Stick) 15 mg/dL (NEG) Urine Blood Small (NEG) Urine Nitrite Negative (NEG) Urine Bilirubin Negative (NEG) Urine Urobilinogen Dipstick 0.2 mg/dL (0.2 mg/dL) Urine Leukocyte Esterase Trace (NEG) Urine RBC 1-2 /HPF (0-2) Urine WBC 1-4 /HPF (0-4) Urine Squamous Epithelial Cells Few /LPF Urine Bacteria Few /HPF (0-FEW) White Blood Count 7.3 x10^3/uL (4.0-11.0) Red Blood Count 4.89 x10^6/uL (3.50-5.40) Hemoglobin 14.9 g/dL (12.0-15.5) Hematocrit 42.7 % (36.0-47.0) Mean Corpuscular Volume 87 fL (79-100) Mean Corpuscular Hemoglobin 31 pg (25-35) Mean Corpuscular Hemoglobin Concent 35 g/dL (31-37) Red Cell Distribution Width 14.4 % (11.5-14.5) Platelet Count 170 x10^3/uL (140-400) Neutrophils (%) (Auto) 62 % (31-73) Lymphocytes (%) (Auto) 26 % (24-48) Monocytes (%) (Auto) 11 % (0-9) H Eosinophils (%) (Auto) 1 % (0-3) Basophils (%) (Auto) 1 % (0-3) Neutrophils # (Auto) 4.5 x10^3/uL (1.8-7.7) Lymphocytes # (Auto) 1.9 x10^3/uL (1.0-4.8) Monocytes # (Auto) 0.8 x10^3/uL (0.0-1.1) Eosinophils # (Auto) 0.0 x10^3/uL (0.0-0.7) Basophils # (Auto) 0.1 x10^3/uL (0.0-0.2) Sodium Level 144 mmol/L (136-145) Potassium Level 3.6 mmol/L (3.5-5.1) Chloride Level 101 mmol/L (98-107) Carbon Dioxide Level 32 mmol/L (21-32) Anion Gap 11 (6-14) Blood Urea Nitrogen 10 mg/dL (7-20) Creatinine 0.7 mg/dL (0.6-1.0) Estimated GFR (Cockcroft-Gault) 79.2 BUN/Creatinine Ratio 14 (6-20) Glucose Level 91 mg/dL (70-99) Lactic Acid Level 1.5 mmol/L (0.4-2.0) Calcium Level 10.3 mg/dL (8.5-10.1) H Phosphorus Level 3.5 mg/dL (2.6-4.7) Magnesium Level 1.9 mg/dL (1.8-2.4) Total Bilirubin 1.2 mg/dL (0.2-1.0) H Aspartate Amino Transferase (AST) 31 U/L (15-37) Alanine Aminotransferase (ALT) 27 U/L (14-59) Alkaline Phosphatase 63 U/L (46-116) Troponin I Quantitative 0.060 ng/mL (0.000-0.055) 0.063 ng/mL (0.000-0.055) 0.048 ng/mL (0.000-0.055) HE-Wap-E-Type Natriuretic Peptide 4250 pg/mL (0-449) H Total Protein 6.4 g/dL (6.4-8.2) Albumin 3.8 g/dL (3.4-5.0) Albumin/Globulin Ratio 1.5 (1.0-1.7) Lipase 68 U/L (73-393) L Laboratory Tests 03/03/21 17:20 Laboratory Tests 03/03/21 17:20 Justifications for Admission Other Justification KATARZYNA REEDER MD Mar 04, 2021 15:03
--- NOTE | 2021-03-04 15:24 | NUR ---
Discharge Note: DUANE LENZ [address] Discharge instructions and discharge home medications reviewed with Patient and a copy given. All questions have been answered and understanding verbalized. The following instructions and handouts were given: chest pain. Patient discharged to home with daughter via wheelchair.
--- NOTE | 2021-03-04 16:15 | SSS ---
ADMIT DATE: 03/04/2021 HISTORY OF PRESENT ILLNESS: This patient is a eric 85-year-old woman who is a continuity outpatient of Dr. Mimi Don who uses the [facility] hospitalist here at [facility]. I am rounding for them this weekend. The patient was sent in to the emergency department by her doc yesterday with epigastric bloating and discomfort, accompanied by nausea. There was also a concern for acute coronary syndrome given that her pain did radiate up into her mid chest. She was admitted to rule out cardiac issues as the underlying etiology for her complaint. She has had an unremarkable stay and is cleared for discharge from the cardiology perspective. I am seeing the patient this afternoon about 24 hours after admission in the company of her daughter with whom she lives. They are both happy with her progress. She is feeling a lot better and in fact, sitting up, eating some potato chips. She has not had any further epigastric discomfort, nausea, or bloating. The patient tells me that she typically enjoys a high functional status for her age. She has not had these symptoms on a recurring basis. She tends to eat well and bowels move normally. She has not had any urinary complaints. She denies any fever, chills, cough, congestion, chest pain, palpitations, or shortness of breath. All other systems reviewed and negative. PAST MEDICAL HISTORY: 1. Well-controlled diabetes. 2. Hypertension. 3. Remote history of coronary disease. 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 4. Hyperlipidemia. MEDICATIONS: Please see the medication reconciliation form. SOCIAL HISTORY: The patient is single. She lives independently in her own home with her daughter. She is highly functional. She reports that she is a full code status. She does not take any tobacco, alcohol or illicit drugs. FAMILY HISTORY: Reviewed in full and noncontributory to the present illness. PHYSICAL EXAMINATION: VITAL SIGNS: Vitals reviewed since admission and are notable for that the patient has been afebrile. Blood pressure has been in the 140s to 150s over 70s, heart rate is in the 60s-70s and regular. She is breathing comfortably and saturating normally on room air. GENERAL: She is a pleasant 85-year-old woman, alert and oriented x 3 in no acute distress. HEENT: Unremarkable. NECK: Soft and supple. No adenopathy or thyromegaly noted. CHEST: Clear to auscultation. HEART: S1, S2 normal. Regular rate and rhythm. No murmurs or gallops are noted. ABDOMEN: Soft, nontender, nondistended. No masses or organomegaly noted. EXTREMITIES: Unremarkable for acute abnormality. LABORATORY AND OTHER STUDIES: Admission white count of 7.3, hemoglobin is 14.9, platelet count is 170. Chemistry panel is notable for negative troponin x 3. BNP is up at 1300. Chemistry panel notable for normal sodium and potassium, bilirubin 1.2. Liver function tests are normal otherwise lipase is 68. Chest x-ray is notable for atelectasis at the left lung base, otherwise unremarkable. CT abdomen and pelvis is notable for cholelithiasis without acute gallbladder changes, diverticulosis, infrarenal abdominal aortic aneurysm measuring 3.6 cm in diameter, 0.4 cm cyst in the left adnexa noted incompletely characterized on CAT scan. EKG report, it is unremarkable in the emergency department and I am unable to pull that report. ASSESSMENT AND PLAN: IMPRESSION: The patient is an 85-year-old woman sent in by primary care for evaluation of epigastric pain radiating into her mid chest, concern for atypical presentation of coronary syndrome. She has been cleared from cardiac perspective and is ready for discharge today. No changes have been made in her medication regimen. She is already taking proton pump inhibitor at home and she will continue to do so. The infrarenal abdominal aortic aneurysm and left adnexal cyst do not appear to be contributing to her symptoms. She can discuss these findings with her primary care physician as an outpatient and proceed with transvaginal ultrasound and CA-125 as an outpatient if they decide to move forward with further evaluation. She may opt to conservatively follow with interval screening. We recommended that if her symptoms return, she proceed with an abdominal ultrasound and gallbladder emptying test. It may well be that she has chronic cholecystitis that is not impressive on CT. She is certainly feeling well enough to discharge home this afternoon for close outpatient followup. FINAL DIAGNOSES: 1. Atypical chest pain, most likely secondary to gastroesophageal reflux disease. Continue current management. 2. Cholelithiasis that may be the culprit. Needs ultrasound of her abdomen and gallbladder emptying study if symptoms return. 3. Infrarenal abdominal aortic aneurysm that does need outpatient followup. I did not discuss this with the patient. 4. A 0.4 cm left adnexal cyst unlikely to be related to this admission also not discussed with the patient. If needed, she can have a transvaginal ultrasound as an outpatient. ALFONSO/HALLIE DR: Juan TID: [id number] CC: MIMI DON MD MTDD
[2021-03-04] MEDS ORDERED: GABAPENTIN 300 MG CAPSULE. PO SCH (21:00)
[2021-03-05] MEDS ORDERED: FERROUS SULFATE 325 MG TABLET. PO SCH (08:00)
== END 2021-03-04 15:18 | disposition home or self-care (01) | DRG 445 ==
LOC: ER 16:12 → 2 SOUTH 20:07
PROVIDERS: ADMIT Family Medicine; ATTEND Family Medicine
DX: K80.20 Calculus of gallbladder without cholecystitis without obstruction (principal); I50.42 Chronic combined systolic (congestive) and diastolic (congestive) heart failure; K21.9 Gastro-esophageal reflux disease without esophagitis; E11.9 Type 2 diabetes mellitus without complications; E78.00 Pure hypercholesterolemia, unspecified; E78.5 Hyperlipidemia, unspecified; I11.0 Hypertensive heart disease with heart failure; I25.10 Atherosclerotic heart disease of native coronary artery without angina pectoris; I71.4 Abdominal aortic aneurysm, without rupture; K57.90 Diverticulosis of intestine, part unspecified, without perforation or abscess without bleeding; N83.202 Unspecified ovarian cyst, left side; Z95.1 Presence of aortocoronary bypass graft; G51.0 Bell's palsy; Z88.8 Allergy status to other drugs, medicaments and biological substances; Z79.899 Other long term (current) drug therapy; I25.5 Ischemic cardiomyopathy
CPT/HCPCS: 36415; 71045; 74176; 80053; 81001; 83605; 83690; 83735; 83880; 84100; 84484; 85025; 87086; 93005; 96374; 96375; J2405; J3010; J7040; 99285-25; G0378

== ENCOUNTER → 2021-04-05 | Outpatient (CLI) | payer MEDICARE, BC ==
--- NOTE | 2021-04-05 15:29 | KCIC ---
EXAM: Pelvic sonogram. HISTORY: Left ovarian cyst. TECHNIQUE: Sonographic imaging of the pelvis was performed. COMPARISON: CT obtained 03/03/2021. FINDINGS: The uterus is not well seen with transabdominal imaging. The ovaries are normal in size and demonstrate normal blood flow. There is a 1.9 cm left ovarian cyst.. The bladder is unremarkable. IMPRESSION: 1. 1.9 cm simple appearing left ovarian cyst. Given the postmenopausal status the patient, correlatio n with a CA-125 tumor marker level and continued sonographic follow-up is recommended to confirm wanda gnity. 2. Obscured uterus. Electronically signed by: Chioma Kulkarni MD (04/05/2021 3:26 PM) [id number]
== END ==
LOC: KCIC US 14:36
PROVIDERS: ATTEND Family Medicine
DX: N83.202 Unspecified ovarian cyst, left side (principal)
CPT/HCPCS: 76856

== ENCOUNTER → 2021-04-19 | Outpatient (CLI) | payer MEDICARE, BC ==
[~2021-04-19] MED LIST changes: -LISI2.5T PO; +LISI2.5T12 PO
[2021-04-20 07:20] LABS: AFPT MARKER 5.6 ng/mL (0.0-8.3); CA 125 12.5 U/mL (0.0-38.1)
[2021-04-21 13:22] LABS: CEA 2.6 ng/mL (0.0-4.7)
== END ==
LOC: LAB 14:52
PROVIDERS: ATTEND Obstetrics & Gynecology
DX: E78.2 Mixed hyperlipidemia (principal); D39.10 Neoplasm of uncertain behavior of unspecified ovary; R10.2 Pelvic and perineal pain; G89.3 Neoplasm related pain (acute) (chronic); N83.209 Unspecified ovarian cyst, unspecified side
CPT/HCPCS: 36415; 82105; 82378; 83615; 84702; 86304; 84704

== ENCOUNTER → 2021-04-26 | Outpatient (CLI) | payer MEDICARE, BC ==
[~2021-04-26] MED LIST changes: +IOHEXOL 180 MG/ML 10 ML VIAL. ONE; +methylPREDNISolone ACETATE 40 MG/ML VIAL. ONE; +methylPREDNISolone ACETATE 80 MG/ML VIAL. ONE
--- NOTE | 2021-04-26 14:39 | PDOC ---
Progress Note - Pain Clinic Date of Service: DOS: DATE: 04/26/21 TIME: 14:36 Diagnosis: Dx: Lumbar radiculopathy with lumbar degenerative disease lumbar spinal stenosis with lumbar spondylosis Myofascial pain History or Present Illness: HPI: 85-year-old female returns for follow-up status post lumbar epidural steroid injection most recently January 26, 2021. Patient reports about 80% improvement initially but down to about 25% since the last month or so the pain is been returning in the low back and the bilateral lower extremities posterior gluteus lateral thighs anterior thighs medial thighs but mostly in the low back patient reports is worse with walking standing changing positions better with sitting or laying down rates it as 8 on scale 10 is worse over the past week 7 on average 7 at its least and is a 7 today patient tries aching and tight constant severe can be shooting better with sitting or laying down generally does not awaken her from sleep at night. Patient reports no new bowel or bladder incontinence no new motor or sensory deficits. Physical Exam: VS: Blood pressure is 151/79 pulse 62 respirations 18 temperature 98.2 F weight is 137 pounds PE: PHYSICAL EXAMINATION: GENERAL: The patient is awake, alert, oriented, appropriate, very pleasant in demeanor. HEENT: Shows normocephalic, atraumatic. Extraocular movements are intact and symmetrical. Oral cavity: Mucous membranes moist and pink. NECK: Shows anterior throat supple without palpable lymphadenopathy noted. Swallow reflex symmetrical. CHEST: Shows normal on inspection. Breath sounds are clear bilaterally, distant but no rales rhonchi wheezes auscultated. HEART: Shows S1, S2 clear. No murmurs auscultated. ABDOMEN: Soft, nontender, nondistended, obese. No palpable organomegaly is noted. BACK: Shows spine grossly in the midline. Normal-appearing cervical lordotic curvature. There is increased thoracic kyphosis, some flattening of the lumbar lordotic curvature. Lumbar paraspinous muscles show symmetrical on inspection, on palpation shows some moderate tenderness diffusely throughout the upper, middle and lower distribution of the paraspinous muscles, but without specific trigger points, without radiation of pain. The patient has good rotational motion of the lumbar spine, both laterally as well as extension and flexion without significant difficulty. EXTREMITIES: Lower extremities show deep tendon reflexes 1+ in the patellar and tendo calcaneus tendons. Motor exam is 5 on a scale of 5 with right dorsif lexion, extension, quadriceps and hamstring flexion and 5/5 on the left. Peripheral pulses are 1 posterior tibial. No peripheral edema is noted bilaterally. Lower extremities are warm and dry to touch, equal in color and appearance. SKIN: Shows warm and dry, good turgor. No edema. No sores, rashes or bruising throughout. Procedure: Procedure: Options were discussed with the patient. Patient chart reviews her current medication regimen updated current review of systems updated today as well. We will proceed with a lumbar epidural steroid injection today with fluoroscopic guidance. Risks were discussed including but not limited to: Bleeding, infection, possibility of epidural hematoma and subsequent neurological compro mise, dural puncture, headaches, spinal cord and/or nerve damage, side effects of steroid medication, and poor results regarding pain control. Patient understands and wished to proceed. Patient will return to the clinic in approximate 2 weeks for follow-up, was counseled as to return appointment activity level and side effects to be aware of. Medication Injected: Med Injected: Procedure is lumbar epidural steroid injection under local anesthetic using sterile prep and drape at the L4-5 level using C-arm fluoroscopic guidance in both AP and lateral views medications injected is 120 mg Depo-Medrol +10mL preservative-free normal saline and 2 mL contrast- condition at discharge is stable patient tolerated procedure well had no complications. Condition at Discharge: Condition at Discharge: Condition at discharge is stable, patient tolerated the procedure well and had no complications. DOLORES KEEN MD Apr 26, 2021 14:39
--- NOTE | 2021-04-26 14:40 | PDOC4 ---
Procedure Note: ICD 10 Code: ICD 10 Code: M54.16 M 40.07 M 47.816 M51.36 Procedure Note: Patient was consented for lumbar epidural steroid injection with fluoroscopic guidance. Risks were discussed including but not limited to: Bleeding, infection, possibility of epidural hematoma and subsequent neurological comprom ise, dural puncture, headaches, spinal cord and/or nerve damage, side effects of steroid medication, and poor results regarding pain control. Patient understands and wished to proceed. Procedure is lumbar epidural steroid injection under local anesthetic using sterile prep and drape at the L4-5 level using C-arm fluoroscopic guidance in both AP and lateral views medications injected is 120 mg Depo-Medrol +10mL preservative-free normal saline and 2 mL contrast- condition at discharge is stable patient tolerated procedure well had no complications. DOLORES KEEN MD Apr 26, 2021 14:39
== END | disposition home or self-care (01) ==
LOC: PNCL 13:55
PROVIDERS: ATTEND Anesthesiology
DX: M51.17 Intervertebral disc disorders with radiculopathy, lumbosacral region (principal); M48.061 Spinal stenosis, lumbar region without neurogenic claudication; M47.817 Spondylosis without myelopathy or radiculopathy, lumbosacral region; I11.0 Hypertensive heart disease with heart failure; I50.9 Heart failure, unspecified; I25.2 Old myocardial infarction; E78.00 Pure hypercholesterolemia, unspecified; M19.90 Unspecified osteoarthritis, unspecified site; K21.9 Gastro-esophageal reflux disease without esophagitis; E11.9 Type 2 diabetes mellitus without complications; J44.9 Chronic obstructive pulmonary disease, unspecified; Z87.01 Personal history of pneumonia (recurrent); Z95.1 Presence of aortocoronary bypass graft; Z95.5 Presence of coronary angioplasty implant and graft; Z95.810 Presence of automatic (implantable) cardiac defibrillator; Z98.890 Other specified postprocedural states
CPT/HCPCS: 62323; J1030; J1040; Q9965

== ENCOUNTER → 2021-05-30 | Outpatient (CLI) | payer MEDICARE, BC ==
[~2021-05-30] MED LIST changes: +BUPIVACAINE MPF 0.25% 10 ML VIAL. ONE; -methylPREDNISolone ACETATE 40 MG/ML VIAL. ONE
--- NOTE | 2021-05-30 15:04 | PDOC4 ---
Procedure Note: ICD 10 Code: ICD 10 Code: M4 7.816 M4 7.817 Procedure Note: Patient was consented for bilateral lumbar facet medial branch blocks with fluoroscopic guidance. Risks were discussed including but not limited to: Bleeding, infection, possibility of epidural hematoma and subsequent neurological compromise, dural puncture, headaches, spinal cord and/or nerve damage, side effects of steroid medication, and poor results regarding pain control. Patient understands and wished to proceed. Under sterile prep and drape using C-arm fluoroscopic guidance AP and lateral and oblique views, bilateral L4-5 and L5-S1 facet joint MB's injections were performed, using quinke needles with stylette's x4,, medications injected: 120 mg Depo-Medrol +4 cc 0.25% bupivacaine +2 cc contrast. Condition at discharge stable patient tolerated the procedure well and no complications. DOLORES KEEN MD May 30, 2021 15:04
--- NOTE | 2021-05-30 15:04 | PDOC ---
Progress Note - Pain Clinic Date of Service: DOS: DATE: 05/30/21 TIME: 15:00 Diagnosis: Dx: Lumbar radiculopathy with lumbar degenerative disease and lumbar spinal stenosis Lumbar and lumbosacral spondylosis Myofascial pain History or Present Illness: HPI: 85-year-old female returns for follow-up status post lumbar epidural steroid injection x3 while initially she did well with this the pain in her legs is resolved after the third injection is here back pain is her main complaint on the left side greater than the right but present bilaterally worse with sitting standing walking changing positions she sits with a heating pad on her back she reports the pain is very tolerable however laying down generally is much better does not awaken her from sleep at night patient reports the pain is worse with standing changing position especially standing from a seated position and arching the back. Patient reports is a 5 on a scale of 10 is worse over the past week for an average 3 displeasing is a 3 today patient what is aching dull constant again worse on the left than the right but present bilaterally. Patient reports no new bowel or bladder incontinence no new motor or sensory deficits. Patient is pleased that her lower extremities are feeling much better but the back is still persistently painful. Physical Exam: VS: Blood pressure is 140/82 pulse 79 respirations 18 temperature 90.3 F height is 4 feet 11 inches weight 134 pounds PE: PHYSICAL EXAMINATION: GENERAL: The patient is awake, alert, oriented, appropriate, very pleasant in demeanor HEENT: Shows normocephalic, atraumatic. Extraocular movements are intact and symmetrical. Oral cavity: Mucous membranes moist and pink. NECK: Shows anterior throat supple without palpable lymphadenopathy noted. Swallow reflex symmetrical. CHEST: Shows normal on inspection. Breath sounds are clear bilaterally, distant but no rales or. HEART: Shows S1, S2 clear. No murmurs auscultated. ABDOMEN: Soft, nontender, nondistended. No palpable organomegaly is noted. BACK: Shows spine grossly in the midline. Normal-appearing cervical lordotic curvature. There is increased thoracic kyphosis, some flattening of the lumbar lordotic curvature. Lumbar paraspinous muscles show symmetrical on inspection, on palpation shows some moderate tenderness diffusely throughout the upper, middle and lower distribution of the paraspinous muscles without specific trigger points, without radiation of pain. The patient has good rotational motion of the lumbar spine, both laterally as well as extension and flexion with some moderate tenderness with right lateral rotation significant tenderness left lateral rotation greater than 10 degrees very significant tenderness with extension to 10 degrees and axial loading of the lumbar spine better with forward flexion which is performed at 45 degrees without significant pain reported. No tenderness over the spinous processes, sacrum or sacroiliac regions. EXTREMITIES: Lower extremities show deep tendon reflexes 1 in the patellar and tendo calcaneus tendons. Motor exam is 5 on a scale of 5 with right dorsiflexion, extension, quadriceps and hamstring flexion and 5/5 on the left. Peripheral pulses are 1+ posterior tibial. No peripheral edema is noted bilaterally. Lower extremities are warm and dry. SKIN: Shows warm and dry, good turgor. No edema. No sores, rashes or bruising throughout. Procedure: Procedure: Options were discussed with the patient. Patient chart reviews her current medication regimen updated current review of systems updated today as well. We will proceed with bilateral L4-5 and L5-S1 facet medial branch blocks today with fluoroscopic guidance. Risks were discussed including but not limited to: Bleeding, infection, possibility of epidural hematoma and subsequent neurological compromise, dural puncture, headaches, spinal cord and/or nerve damage, side effects of steroid medication, and poor results regarding pain control. Patient understands and wished to proceed. Patient will return to clinic in approximately 2 weeks for follow-up, was counseled as return appointment, activity level, and side effects beware of. Medication Injected: Med Injected: Under sterile prep and drape using C-arm fluoroscopic guidance AP and lateral and oblique views, bilateral L4-5 and L5-S1 facet joint MB's injections were performed, using quinke needles with stylette's x4,, medications injected: 120 mg Depo-Medrol +4 cc 0.25% bupivacaine +2 cc contrast. Condition at discharge stable patient tolerated the procedure well and no complications. Condition at Discharge: Condition at Discharge: Condition at discharge is stable, patient already procedure well and had no complications. DOLORES KEEN MD May 30, 2021 15:03
== END ==
LOC: PNCL 14:22
PROVIDERS: ATTEND Anesthesiology
DX: M51.17 Intervertebral disc disorders with radiculopathy, lumbosacral region (principal); M47.817 Spondylosis without myelopathy or radiculopathy, lumbosacral region; M48.061 Spinal stenosis, lumbar region without neurogenic claudication
CPT/HCPCS: 64493; 64494; J1040; J3490; Q9965

== ENCOUNTER → 2021-06-27 | Outpatient (CLI) | payer MEDICARE, BC ==
[~2021-06-27] MED LIST changes: +ASPI-630 PO; +SACU1TAB PO; +TRAM50TA PO; +methylPREDNISolone ACETATE 40 MG/ML VIAL. ONE
--- NOTE | 2021-06-27 14:21 | PDOC ---
Progress Note - Pain Clinic Date of Service: DOS: DATE: 06/27/21 TIME: 14:17 Diagnosis: Dx: Lumbar degenerative disease lumbar spinal stenosis and lumbar and lumbosacral spondylosis Myofascial pain History or Present Illness: HPI: 85-year-old female returns for follow-up status post bilateral L4-5 and L5-S1 facet medial branch blocks. Patient reports doing very well about 35% improvement after the injections and the pain is beginning to come back and now it has been approximately 1 month since the injections is still significantly improved by about 75% patient reports still feeling some pain in the low back itself but no longer radiating to the lower extremities. Patient reports is across the low back right seems equal to left rated 4 to scale 10 is worse over the past week 3 on average 3 days least and is a 3 today patient scribes aching and dull burning at times/cramping and severe worse with walking standing changing positions better with sitting or laying down patient reports no loss of motor function no bowel or bladder incontinence. Patient reports generally does not awaken her from sleep at night she sleeps about 6 to 8 hours at a time. Patient has been increasing her activity with distance walking doing household activities will try with greater ease and comfortable with her progress thus far. Physical Exam: VS: Blood pressure is 144/70 pulse 67 respirations 18 temperature 98.4 F height is 4 feet 11 inches weight is 133 pounds. PE: PHYSICAL EXAMINATION: GENERAL: The patient is awake, alert, oriented, appropriate, very pleasant in demeanor HEENT: Shows normocephalic, atraumatic. Extraocular movements are intact and symmetrical. Oral cavity: Mucous membranes moist and pink. NECK: Shows anterior throat supple without palpable lymphadenopathy noted. Swallow reflex is symmetrical. CHEST: Shows normal on inspection. Breath sounds are clear bilaterally, distant but no rales or rhonchi. HEART: Shows S1, S2 clear. No murmurs auscultated. ABDOMEN: Soft, nontender, nondistended, obese. No palpable organomegaly is noted. BACK: Shows spine grossly in the midline. Normal-appearing cervical lordotic curvature. There is increased thoracic kyphosis, some flattening of the lumbar lordotic curvature. Lumbar paraspinous muscles show symmetrical on inspection, on palpation shows some moderate tenderness diffusely throughout the upper, middle and lower distribution of the paraspinous muscles without specific trigger points, without radiation of pain. The patient has good rotational motion of the lumbar spine, both laterally as well as extension and flexion without significant difficulty. EXTREMITIES: Lower extremities show deep tendon reflexes 1+ in the patellar and tendo calcaneus tendons. Motor exam is 5 on a scale of 5 with right dorsiflexion, extension, quadriceps and hamstring flexion and 5/5 on the left. Peripheral pulses are 1 posterior tibial. No peripheral edema is noted bilaterally. Lower extremities are warm and dry. SKIN: Shows warm and dry, good turgor. No edema. No sores, rashes or bruising throughout. Procedure: Procedure: Options were discussed with the patient. Patient chart was viewed as her current medication regimen updated current review of systems updated today as well. We will proceed with bilateral L4-5 and L5-S1 facet medial branch blocks today with fluoroscopic guidance. Risks were discussed including but not limited to: Bleeding, infection, possibility of epidural hematoma and subsequent neurological compromise, dural puncture, headaches, spinal cord and/or nerve damage, side effects of steroid medication, and poor results regarding pain con trol. Patient understands and wished to proceed. She will return to clinic in approximately 3 weeks for follow-up, was counseled as return appointment, activity level, and side effect to be aware of. Medication Injected: Med Injected: Under sterile prep and drape using C-arm fluoroscopic guidance AP and lateral and oblique views, bilateral L4-5 and L5-S1 facet joint MB's injections were performed, using quinke needles with stylette's x4,, medications injected: 120 mg Depo-Medrol +4 cc 0.25% bupivacaine +2 cc contrast. Condition at discharge stable patient tolerated the procedure well and no complications. Condition at Discharge: Condition at Discharge: Condition at discharge is stable, patient already procedure well and had no complications. DOLORES KEEN MD Jun 27, 2021 14:21
--- NOTE | 2021-06-27 14:22 | PDOC4 ---
Procedure Note: ICD 10 Code: ICD 10 Code: M4 7.816 M4 7.817 M4 8.06 M51.36 Procedure Note: Patient consented for bilateral L4-5 and L5-S1 medial branch facet blocks with fluoroscopic guidance. Risks were discussed including but not limited to: Bleeding, infection, possibility of epidural hematoma and subsequent neuro logical compromise, dural puncture, headaches, spinal cord and/or nerve damage, side effects of steroid medication, and poor results regarding pain control. Patient understands and wished to proceed. Under sterile prep and drape using C-arm fluoroscopic guidance AP and lateral and oblique views, bilateral L4-5 and L5-S1 facet joint MB's injections were performed, using quinke needles with stylette's x4,, medications injected: 120 mg Depo-Medrol +4 cc 0.25% bupivacaine +2 cc contrast. Condition at discharge stable patient tolerated the procedure well and no complications. DOLORES KEEN MD Jun 27, 2021 14:22
== END | disposition home or self-care (01) ==
LOC: PNCL 13:34
PROVIDERS: ATTEND Anesthesiology
DX: M51.36 Other intervertebral disc degeneration, lumbar region (principal); M48.061 Spinal stenosis, lumbar region without neurogenic claudication; M47.817 Spondylosis without myelopathy or radiculopathy, lumbosacral region; M79.18 Myalgia, other site; I11.0 Hypertensive heart disease with heart failure; I50.9 Heart failure, unspecified; E78.00 Pure hypercholesterolemia, unspecified; K21.9 Gastro-esophageal reflux disease without esophagitis; E11.9 Type 2 diabetes mellitus without complications; J44.9 Chronic obstructive pulmonary disease, unspecified; M19.90 Unspecified osteoarthritis, unspecified site; G47.30 Sleep apnea, unspecified; Z79.82 Long term (current) use of aspirin; Z79.84 Long term (current) use of oral hypoglycemic drugs; Z79.899 Other long term (current) drug therapy; Z98.890 Other specified postprocedural states; Z72.89 Other problems related to lifestyle; Z88.5 Allergy status to narcotic agent; Z88.8 Allergy status to other drugs, medicaments and biological substances; Z91.041 Radiographic dye allergy status
CPT/HCPCS: 64493; 64494; J1030; J1040; J3490; Q9965

== ENCOUNTER → 2021-07-18 | Outpatient (CLI) | payer MEDICARE, BC ==
--- NOTE | 2021-07-18 14:37 | PDOC ---
Progress Note - Pain Clinic Date of Service: DOS: DATE: 07/18/21 TIME: 14:34 Diagnosis: Dx: Lumbar and lumbosacral spondylosis Lumbar degenerative disease lumbar spinal stenosis Myofascial pain History or Present Illness: HPI: 85-year-old female returns for follow-up status post bilateral L4-5 and L5-S1 facet medial branch blocks with approximately 100% improvement until just a few days ago patient reports the pain is dissipated fairly significantly over the past 2 to 3 weeks but is coming back in the low back left. The right but without radiation to lower extremities. Patient reports he can increase her activities greater distance walking doing household activities travel with greater ease and comfort is been sleeping better as well does not awaken her from sleep at night. Patient reports the pain to form scale 10 is worst 3 on average 3 its least is a 3 today but is tolerable patient reports is aching and dull across the low back again not radiating into the lower extremities. Patient reports no bowel or bladder incontinence or other complaints. Physical Exam: VS: Blood pressure is 123/58 pulse 55 respirations 18 temperature is 98.2 F, height is 4 foot level inches weight 133 pounds PE: PHYSICAL EXAMINATION: GENERAL: The patient is awake, alert, oriented, appropriate, very pleasant in demeanor. HEENT: Shows normocephalic, atraumatic. Extraocular movements are intact and symmetrical. Oral cavity: Mucous membranes moist and pink. NECK: Shows anterior throat supple without palpable lymphadenopathy noted. Swallow reflex symmetrical. CHEST: Shows normal on inspection. Breath sounds are clear bilaterally, no rales or rhonchi. HEART: Shows S1, S2 clear. No murmurs auscultated. ABDOMEN: Soft, nontender, nondistended, obese. No palpable organomegaly is noted. BACK: Shows spine grossly in the midline. Normal-appearing cervical lordotic curvature. There is slightly increased thoracic kyphosis, some minor flattening of the lumbar lordotic curvature. Lumbar paraspinous muscles show symmetrical on inspection, on palpation shows some moderate tenderness diffusely throughout the upper, middle and lower distribution of the paraspinous muscles, but without specific trigger points, without radiation of pain. The patient has good rotational motion of the lumbar spine, both laterally as well as extension and flexion with some moderate tenderness with extension and axial loading lumbar spine slightly more on the left than the right also with left lateral rotation greater than 10 degrees with moderate pain reported but not to the right. No tenderness over the spinous processes, sacrum or sacroiliac regions. EXTREMITIES: Lower extremities show deep tendon reflexes 1 in the patellar and tendo calcaneus tendons. Motor exam is 5 on a scale of 5 with right dorsiflexion, extension, quadriceps and hamstring flexion and 5/5 on the left. Peripheral pulses are 1+ posterior tibial. No peripheral edema is noted bilaterally. Lower extremities are warm and dry to touch, equal in color and appearance. SKIN: Shows warm and dry, good turgor. No edema. No sores, rashes or bruising throughout. Procedure: Procedure: Options discussed with the patient. Patient chart reviews her current medication regimen updated current review of systems updated today as well. We will proceed with bilateral L4-5 and L5-S1 facet medial branch blocks today with fluoroscopic guidance risks were discussed including but not limited to: Bleeding, infection, possibility of epidural hematoma and subsequent neurological compromise, dural puncture, headaches, spinal cord and/or nerve damage, side effects of steroid me dication, and poor results regarding pain control. Patient understands and wished to proceed. Patient will return to clinic in approximately 2 weeks for follow-up, was counseled as return appointment, activity level, and side effects to be aware of. Medication Injected: Med Injected: Under sterile prep and drape using C-arm fluoroscopic guidance AP and lateral and oblique views, bilateral L4-5 and L5-S1 facet joint MB's injections were performed, using quinke needles with stylette's x4,, medications injected: 120 mg Depo-Medrol +4 cc 0.25% bupivacaine +2 cc contrast. Condition at discharge stable patient tolerated the procedure well and no complications. Condition at Discharge: Condition at Discharge: Condition at discharge stable, patient tolerated procedure well and had no complications. DOLORES KEEN MD Jul 18, 2021 14:37
--- NOTE | 2021-07-18 14:37 | PDOC4 ---
Procedure Note: ICD 10 Code: ICD 10 Code: M4 7.816 M4 7.817 M4 8.07 M51.87 Procedure Note: Patient was consented for bilateral L4-5 and L5-S1 facet medial branch blocks with fluoroscopic guidance. Risks were discussed including but not limited to: Bleeding, infection, possibility of epidural hematoma and subsequent n eurological compromise, dural puncture, headaches, spinal cord and/or nerve damage, side effects of steroid medication, and poor results regarding pain control. Patient understands and wished to proceed. Under sterile prep and drape using C-arm fluoroscopic guidance AP and lateral and oblique views, bilateral L4-5 and L5-S1 facet joint MB's injections were performed, using quinke needles with stylette's x4,, medications injected: 120 mg Depo-Medrol +4 cc 0.25% bupivacaine +2 cc contrast. Condition at discharge stable patient tolerated the procedure well and no complications. DOLORES KEEN MD Jul 18, 2021 14:37
== END | disposition home or self-care (01) ==
LOC: PNCL 13:32
PROVIDERS: ATTEND Anesthesiology
DX: M47.817 Spondylosis without myelopathy or radiculopathy, lumbosacral region (principal); M48.061 Spinal stenosis, lumbar region without neurogenic claudication; M51.36 Other intervertebral disc degeneration, lumbar region; M79.18 Myalgia, other site; I11.0 Hypertensive heart disease with heart failure; I50.9 Heart failure, unspecified; E78.00 Pure hypercholesterolemia, unspecified; E11.9 Type 2 diabetes mellitus without complications; M19.90 Unspecified osteoarthritis, unspecified site; K21.9 Gastro-esophageal reflux disease without esophagitis; G47.30 Sleep apnea, unspecified; J44.9 Chronic obstructive pulmonary disease, unspecified; Z79.82 Long term (current) use of aspirin; Z79.899 Other long term (current) drug therapy; Z72.89 Other problems related to lifestyle; Z98.890 Other specified postprocedural states; Z88.5 Allergy status to narcotic agent; Z91.041 Radiographic dye allergy status; Z88.8 Allergy status to other drugs, medicaments and biological substances
CPT/HCPCS: 64493; 64494; J1030; J1040; J3490; Q9965

== ENCOUNTER → 2021-12-19 | Outpatient (CLI) | payer MEDICARE, BC ==
[~2021-12-19] MED LIST changes: -BUPIVACAINE MPF 0.25% 10 ML VIAL. ONE; -IOHEXOL 180 MG/ML 10 ML VIAL. ONE; +REGADENOSON 0.4 MG/5 ML DISP.SYRIN. IV ONE; -methylPREDNISolone ACETATE 40 MG/ML VIAL. ONE; -methylPREDNISolone ACETATE 80 MG/ML VIAL. ONE
--- NOTE | 2021-12-19 14:42 | CARD ---
MR#: [id number] Date of Study: 12/19/2021 Ordering Physician: ESDRAS HUGGINS, Referring Physician: ESDRAS HUGGINS Tech: Malou Foster [facility] APPROVED REPORT EXAM: Two-dimensional and M-mode echocardiogram with Doppler and color Doppler. Other Information Quality : AverageHR: 68bpm Rhythm : Pacemaker INDICATION Cardiac Disease: Surgery/Intervention Pacemaker: RISK FACTORS Hypertension Hyperlipidemia 2D DIMENSIONS Left Atrium(2D)5.3 (1.6-4.0cm)IVSd1.2 (0.7-1.1cm) Aortic Root(2D)3.4 (2.0-3.7cm)LVDd5.0 (3.9-5.9cm) LVOT Diameter2.0 (1.8-2.4cm)PWd1.2 (0.7-1.1cm) LVDs3.9 (2.5-4.0cm)FS (%) 21.6 % SV51.4 mlLVEF(%)43.6 (>50%) Aortic Valve AoV Peak Kyree.166.2cm/sAoV VTI34.3cm AO Peak GR.11.1mmHgLVOT Peak Kyree.125.2cm/s LVOT VTI 25.29cmAO Mean GR.5mmHg JEROD (VMAX)1.03wy5NYY (VTI)2.23cm2 Mitral Valve MV E Pcwurgad608.7cm/sMV DECEL DCXE020qf MV A Cemjinoq437.5cm/sMV MXO81ch E/A Ratio1.1MVA (PHT)4.04cm2 TDI E/Lateral E'10.8E/Medial E'18.3 Tricuspid Valve TR P. Vxdftnvs303xo/sTR Peak Gr.49mmHg LEFT VENTRICLE The left ventricle is normal size. There is mild concentric left ventricular hypertrophy. The systoli c function is mildly impaired. Estimated ejection fraction 45%. Septal motion suggestive of conductio n defect. The inferolateral wall is hypokinetic. Remainder of the LV is mildly hypokinetic. Tissue Do ppler imaging reveals moderate left ventricular diastolic dysfunction. No left ventricle thrombus not ed on this study. RIGHT VENTRICLE The right ventricle is normal size. There is normal right ventricular wall thickness. The right ventr icular systolic function is normal. ATRIA The left atrium is mildly dilated. The right atrium size is normal. The interatrial septum is intact with no evidence for an atrial septal defect or patent foramen ovale as noted on 2-D or Doppler imagi ng. AORTIC VALVE The aortic valve is normal in structure and function. Doppler and Color Flow revealed mild aortic reg urgitation. There is no significant aortic valvular stenosis. MITRAL VALVE The mitral valve is calcified with decreased coaptation. There is no evidence of mitral valve prolaps e. There is no mitral valve stenosis. Doppler and Color-flow revealed moderate mitral regurgitation. TRICUSPID VALVE The tricuspid valve is normal in structure and function. Doppler and Color Flow revealed mild tricusp id regurgitation. Estimated PAP 55-60 mmHg. There is no tricuspid valve stenosis. PULMONIC VALVE Doppler and Color Flow revealed mild pulmonic valvular regurgitation. There is no pulmonic valvular s tenosis. GREAT VESSELS The aortic root is normal in size. The ascending aorta is normal in size. The IVC is normal in size a nd collapses <50% with inspiration. PERICARDIAL EFFUSION There is no evidence of significant pericardial effusion. Critical Notification Critical Value: No <Conclusion> The systolic function is mildly impaired. Estimated ejection fraction 45%. Septal motion suggestive of conduction defect. The inferolateral wall is hypokinetic. Remainder of th e LV is mildly hypokinetic. Doppler and Color-flow revealed moderate mitral regurgitation. Doppler and Color Flow revealed mild tricuspid regurgitation. Estimated PAP 55-60 mmHg. There is a pacemaker/icd lead noted in the in RA/RV. Signed by : Abdelrahman Montes De Oca, Electronically Approved : 12/19/2021 14:42:45
--- NOTE | 2021-12-19 17:02 | RAD ---
MR#: [id number] Date of Study: 12/19/2021 Ordering Physician: ESDRAS HUGGINS, Referring Physician: BETO LEAL Tech: JOHN Cazares, ARRT (R) (N) APPROVED REPORT Test Type: Pharmacological Stress Nurse/Tech: JAYSON ORTEGA Test Indications: CAD Cardiac History: CAD, CABG , PTCA, HTN, PPM- SEE EMR Medications: SEE EMR Medical History: SEE EMR Resting ECG: PPM SPIKES NOT NOTED ON EKG, SR W/ 1ST AVB/BBB, INVERTED T- WAVE PER MONITOR Resting Heart Rate: 60 bpm Resting Blood Pressure: 122/55mmHg Pretest Chest Pain: No chest pain Nurse/Tech Notes VSS. PT DENIED CHEST PAIN OR SHORTNESS OF AIR, O2 @ 2L PER NC, LUNGS CTA. Consent: The procedure was explained to the patient in lay terms. Informed consent was witnessed. Ata eout was entered into [facility]. History and Stress Test performed by VONNIE Brock Pharm. Details Pharmacologic stress testing was performed using 0.4mg per 5ml of regadenoson given intravenously ove r 7-10 seconds. Stress Symptoms PT C/O OF "HEAVINESS" IN HER CHEST DURING THE INITIATION OF THE TEST, SYMPTOMS RESOLVED WITHIN A COUP LE MINUTES. VSS. POST EXERCISE Reason for Termination: Infusion complete Max HR: 87 bpm Max Blood Pressure: 123/52mmHg Blood Pressure response to exercise: Normal blood pressure response during stress. Heart Rate response to exercise: WNL Chest Pain: . DESCRIBED "HEAVINESS" BRIEFLY Arrhythmia: . OCCASSIONAL PVC NOTED, OTHERWISE NO SIGNIFICANT CHANGES NOTED FROM BASELINE EKG INTERPRETATION Stress EKG Conclusion: Non-diagnostic EKG due to LBBB Imaging Protocol IMAGE PROTOCOL: Rest Tc-99m/stress Tc-99m 1 day Rest: Stress: Viability: Radiopharm.Tc99m EmzrgixjpZn28t Sestamibi Aqox43wAk 32.5mCi Img Date 12/19/2021 12/19/2021 Inj-Img Pzsp66xhe. 60min. Rest Admin Site:IV - Left AntecubitalAdministrator:JOHN Cazares, ARRT (R)(N) Stress Admin Site: IV - Left AntecubitalAdministrator: VONNIE Brock STRESS DATA End Diast. Vol.148.0mlLVEDV index BSA97.0ml End Syst. Vol.85.0mlLVESV index BSA56.0ml Myocardial Jski693.0gEject. Utqynynh16.0% Stress Scores Regional WT1.00Summed WT12.00 Regional WM0.00Summed WM18.00 The rest and stress images show normal perfusion, normal contraction and thickening. LV Perf. Quant 17 Seg. SSS4.00 17 Seg. SRS6.00 17 Seg. SDS0.00 Stress Defect Extent (% LAD)0.00Rest Defect Extent (% LAD)6.90Rev. Defect Extent (% LAD)0.00 Stress Defect Extent (% LCX) 15.00Rest Defect Extent (% LCX)15.00Rev. Defect Extent (% LCX)0.00 Stress Defect Extent (% RCA)0.00Rest Defect Extent (% RCA)2.20Rev. Defect Extent (% RCA)0.00 Stress Defect Extent (% GONZALEZ)5.90Rest Defect Extent (% GONZALEZ)12.20Rev. Defect Extent (% GONZALEZ)0.00 Other Information Quality:Average Risk Assessment: Low Risk Conclusion 1. No evidence of EKG changes with stress testing. 2. Normal perfusion at stress/rest. 3. Low risk study. 4. EF > 50%. Signed by : Abdelrahman Montes De Oca, Electronically Approved : 12/19/2021 17:02:16
== END ==
LOC: ECHO 08:44
PROVIDERS: ATTEND Internal Medicine Cardiovascular Disease
DX: I08.8 Other rheumatic multiple valve diseases (principal); I25.10 Atherosclerotic heart disease of native coronary artery without angina pectoris; I50.22 Chronic systolic (congestive) heart failure
CPT/HCPCS: 78452; 93017; 93306; A9500; J2785; C8929

== ENCOUNTER → 2022-02-06 | Outpatient (CLI) | payer MEDICARE, BC ==
[~2022-02-06] MED LIST changes: -REGADENOSON 0.4 MG/5 ML DISP.SYRIN. IV ONE
--- NOTE | 2022-02-08 08:20 | KCIC ---
CLINICAL HISTORY: Reason: DYSPHAGIA, FOOD AND PILLS GET STUCK IN THROAT PAST 6 MONTHS / Spl. Instruct ions: / History: COMPARISON: None available. TECHNIQUE:A single contrast esophagram study was performed. Thin barium was administered orally and r adiographs were taken under fluoroscopic guidance. Fluoroscopy time was 1 minute 31 seconds. Number of images: 18 FINDINGS: The esophagus is mildly patulous in appearance with abnormal peristalsis. Disorganized secondary cont ractions with numerous tertiary contractions were seen. The GE junction is widely patent. Small hiata l hernia is seen. Mucosal irregularity may be seen with reflux. Small volume reflux is seen to the mi dthoracic esophagus. IMPRESSION: 1. Mildly dilated esophagus with abnormal peristalsis including disorganized secondary contractions and numerous tertiary contractions. This may be related to presbyesophagus although other causes are not excluded. 2. Small volume reflux to the midthoracic esophagus with mucosal irregularity, possibly secondary ch anges of of esophagitis/reflux. Correlation with endoscopy reveal additional details. Electronically signed by: Pérez Castillo MD (02/08/2022 8:18 AM) [id number]
== END ==
LOC: KCIC 13:37
PROVIDERS: ATTEND Internal Medicine Gastroenterology
DX: K21.9 Gastro-esophageal reflux disease without esophagitis (principal); K22.89 Other specified disease of esophagus; R13.10 Dysphagia, unspecified
CPT/HCPCS: 74220